=== PATIENT | male | born 1935 | race Caucasian/White ===

== ENCOUNTER 2018-06-12 09:08 | Day surgery (SDC) | payer MEDICARE, OTHER, SELFPAY ==
[2018-06-12] MEDS: PROPARACAINE 0.5% OPHTH SOL 2 DROPS EYE-OP (10:15)
[2018-06-12 10:20] VITALS: BP 129/54; PULSE 59; RESP 16; TEMP 36.4; O2SAT 99
[2018-06-12] MEDS: CATARACT EYE COMPOUND (10 DROPS/SYRINGE) 3 DROPS EYE-OP (10:34)
--- NOTE | 2018-06-12 11:25 | PM.PREOP ---
Pre-operative Note Interval Note Changes: No
--- NOTE | 2018-06-12 11:26 | P.OP_ITS ---
Operative Date/Time/Diagnoses Pre-op diagnosis: Cataract Right eye Post-op diagnosis: same Procedure & Clinicians Procedure: Cataract Surgery Same procedure as scheduled: Yes Surgeon: Sae Workman Anesthesia Type: MAC +/- and Sedation Operative Notes Procedure in detail: Patient brought to the operating suite. Tetracaine drops placed in the right eye. Patient was prepped and draped in sterile manner. Wire lid speculum was placed in the eye. Betadine drops were placed on the eye. This was irrigated. Lidocaine jelly was placed on the eye. A paracentesis port was created with a side-port blade. 0.1 mL 1% preservative free lidocaine was injected into the anterior chamber. The anterior chamber was deepened with viscoelastic. 2.6 mm keratome was used to create a temporal clear corneal incision. Cystotome and Utrata forceps were used to create continuous tear capsulorrhexis. Balanced salt solution was used to hydro dissect the nucleus. The phacoemulsification handpiece was inserted and the nucleus was removed using the stop and chop technique. The irrigation aspiration handpiece was inserted and the remaining cortex was removed. Anterior chamber was deepened with viscoelastic. An Stoddard ZCB00 intraocular lens with a power of 21.0 was injected into the capsular bag. Irrigation aspiration handpiece was inserted and the remaining viscoelastic was removed. Incision was hydrated with balanced salt solution and found to be leak free with pressure with Weck- Estefani sponges. 0.1 mL Vigamox injected anterior chamber. 0.3 mL Kenalog 10 mg was injected subconjunctivally. Lid speculum was removed. The patient left the operating room in excellent condition. Complications: none Condition: stable Disposition: same day surgery
--- NOTE | 2018-06-12 11:26 | P.OP.PRE_ITS ---
Pre-operative Note Interval Note Changes: No
[2018-06-12] MEDS: CHONDROIDTIN/SOD HYALURONATE 1.05 ML SYRINGE INTRAOCULA (11:37)
[2018-06-12] MEDS: MOXIFLOXACIN OPHTH DROPS 3 ML BOTTLE 2 DROPS INJ (11:37)
[2018-06-12] MEDS: TETRACAINE 0.5% OPHTH DROPS 15 ML 2 DROPS EYE-RIGHT (11:37)
[2018-06-12] MEDS: PHENYLEPHRINE/LIDOCAINE VIAL (OR) 0.2 ML EYE-OP (11:37)
[2018-06-12] MEDS: LIDOCAINE JELLY 2% 5 ML 1 APPLIC TOP (11:37)
[2018-06-12] MEDS: BALANCED SALT IRRIG SOLN NO.2 500 ML, EPINEPHrine 1 MG IRR (11:38)
[2018-06-12] MEDS: TRIAMCINOLONE 50 MG/5 ML VIAL INJ (11:38)
[2018-06-12 11:59] VITALS: BP 140/58; PULSE 54; RESP 16; TEMP 36.5; O2SAT 98
== END 2018-06-12 12:15 | disposition home or self-care (01) ==
LOC: OR 09:10
PROVIDERS: PCP Internal Medicine; Visit Provider Ophthalmology
DX: I51.9 Heart disease, unspecified (principal); I49.9 Cardiac arrhythmia, unspecified
CPT/HCPCS: J0171; J2250; J3010; J3301

== ENCOUNTER → 2019-06-13 15:32 | Outpatient (CLI) | payer MEDICARE, OTHER, SELFPAY ==
--- NOTE | 2019-06-13 | DI.CT.S_ITS ---
PROCEDURE: CT HEAD/BRAIN WO CON INDICATIONS: HEAD TRAUMA, FALL ON ANTICOAGULATION TECHNIQUE: Noncontrast 4.5 mm thick angled axial sections acquired from the foramen magnum to the vertex, with coronal and sagittal reformats. For radiation dose reduction, the following was used: automated exposure control, adjustment of mA and/or kV according to patient size. COMPARISON: None. FINDINGS: Image quality: Excellent. CSF spaces: Basal cisterns are patent. No extra-axial fluid collections. The ventricles are symmetric in size and shape. Brain: No intracranial bleeds or masses. There is dilated vascular space or old lacunar infarct in the right basal ganglia and external capsule. Old lacunar infarcts may be present in caudates bilaterally. There is moderate cerebral volume loss for age, with resultant ventricular and sulcal prominence. There are periventricular and deep white matter chronic small vessel ischemic changes. There is intracranial internal carotid artery atherosclerosis. Skull and face: Calvarium and visualized facial bones appear intact, without suspicious lesions. Sinuses: Visualized sinuses and mastoids are clear. IMPRESSION: 1. No acute intracranial abnormalities. No intracranial bleed. 2. Cerebral volume loss and chronic microvascular ischemic changes. Dictated by: Chandu De La Torre M.D. on 06/13/2019 at 16:07 Approved by: Chandu De La Torre M.D. on 06/13/2019 at 16:10
== END ==
PROVIDERS: PCP Internal Medicine; Visit Provider Internal Medicine
DX: S09.90XA Unspecified injury of head, initial encounter (principal); Z79.01 Long term (current) use of anticoagulants; W19.XXXA Unspecified fall, initial encounter
CPT/HCPCS: 70450

== ENCOUNTER → 2019-06-24 13:11 | Outpatient (CLI) | payer MEDICARE, OTHER, SELFPAY | PROVIDERS: PCP Internal Medicine; Visit Provider Family Medicine | DX: S81.811A Laceration without foreign body, right lower leg, initial encounter (principal); S81.812A Laceration without foreign body, left lower leg, initial encounter; I73.9 Peripheral vascular disease, unspecified; L90.9 Atrophic disorder of skin, unspecified | CPT/HCPCS: 97597; 97598 ==

== ENCOUNTER → 2019-06-27 10:58 | Outpatient (CLI) | payer MEDICARE, OTHER, SELFPAY | PROVIDERS: PCP Internal Medicine; Visit Provider Family Medicine | DX: S81.001A Unspecified open wound, right knee, initial encounter (principal); S81.801A Unspecified open wound, right lower leg, initial encounter; S81.002A Unspecified open wound, left knee, initial encounter; Z79.01 Long term (current) use of anticoagulants | CPT/HCPCS: 11042; 11043; 87070; 87205; 99212; 99214 ==

== ENCOUNTER → 2019-07-01 13:37 | Outpatient (CLI) | payer MEDICARE, OTHER, SELFPAY | PROVIDERS: PCP Internal Medicine; Visit Provider Family Medicine | DX: S81.001A Unspecified open wound, right knee, initial encounter (principal); S81.801A Unspecified open wound, right lower leg, initial encounter; S81.002A Unspecified open wound, left knee, initial encounter; Z79.01 Long term (current) use of anticoagulants | CPT/HCPCS: 11042; 97597 ==

== ENCOUNTER → 2019-07-03 08:30 | Outpatient (CLI) | payer MEDICARE, OTHER, SELFPAY | PROVIDERS: PCP Internal Medicine; Visit Provider Family Medicine | DX: S81.011A Laceration without foreign body, right knee, initial encounter (principal); S81.002D Unspecified open wound, left knee, subsequent encounter; S81.811D Laceration without foreign body, right lower leg, subsequent encounter | CPT/HCPCS: 97605 ==

== ENCOUNTER → 2019-07-08 13:15 | Outpatient (CLI) | payer MEDICARE, OTHER, SELFPAY | PROVIDERS: PCP Internal Medicine; Visit Provider Podiatrist Primary Podiatric Medicine | DX: S81.011A Laceration without foreign body, right knee, initial encounter (principal); S81.811A Laceration without foreign body, right lower leg, initial encounter; S81.012D Laceration without foreign body, left knee, subsequent encounter; Z79.01 Long term (current) use of anticoagulants | CPT/HCPCS: 11042; 97597; 97605 ==

== ENCOUNTER → 2019-07-15 14:46 | Outpatient (CLI) | payer MEDICARE, OTHER, SELFPAY | PROVIDERS: PCP Internal Medicine; Visit Provider Podiatrist Primary Podiatric Medicine | DX: S81.001A Unspecified open wound, right knee, initial encounter (principal); S81.801A Unspecified open wound, right lower leg, initial encounter; Z79.01 Long term (current) use of anticoagulants | CPT/HCPCS: 11043; 97597 ==

== ENCOUNTER → 2019-07-22 13:07 | Outpatient (CLI) | payer MEDICARE, OTHER, SELFPAY | PROVIDERS: PCP Internal Medicine; Visit Provider Podiatrist Primary Podiatric Medicine | DX: S81.811D Laceration without foreign body, right lower leg, subsequent encounter (principal); S81.011D Laceration without foreign body, right knee, subsequent encounter; R60.0 Localized edema; Z79.01 Long term (current) use of anticoagulants | CPT/HCPCS: 99214 ==

== ENCOUNTER → 2019-07-29 12:58 | Outpatient (CLI) | payer MEDICARE, OTHER, SELFPAY | PROVIDERS: PCP Internal Medicine; Visit Provider Podiatrist Primary Podiatric Medicine | DX: S81.001A Unspecified open wound, right knee, initial encounter (principal); S81.811A Laceration without foreign body, right lower leg, initial encounter; S81.011A Laceration without foreign body, right knee, initial encounter; Z79.01 Long term (current) use of anticoagulants | CPT/HCPCS: 15271; 97597; Q4196 ==

== ENCOUNTER → 2019-08-05 13:30 | Outpatient (CLI) | payer MEDICARE, OTHER, SELFPAY | PROVIDERS: PCP Internal Medicine; Visit Provider Podiatrist Primary Podiatric Medicine | DX: S81.001D Unspecified open wound, right knee, subsequent encounter (principal); S81.801D Unspecified open wound, right lower leg, subsequent encounter; S81.002D Unspecified open wound, left knee, subsequent encounter; Z79.01 Long term (current) use of anticoagulants | CPT/HCPCS: 15271; Q4196 ==

== ENCOUNTER → 2019-08-12 13:55 | Outpatient (CLI) | payer MEDICARE, OTHER, SELFPAY | PROVIDERS: PCP Internal Medicine; Visit Provider Podiatrist Primary Podiatric Medicine | DX: S81.001D Unspecified open wound, right knee, subsequent encounter (principal); S81.801D Unspecified open wound, right lower leg, subsequent encounter; S81.002D Unspecified open wound, left knee, subsequent encounter; Z79.01 Long term (current) use of anticoagulants | CPT/HCPCS: 15271; 17250; Q4196 ==

== ENCOUNTER → 2019-08-15 14:53 | Outpatient (CLI) | payer MEDICARE, OTHER, SELFPAY ==
--- NOTE | 2019-08-16 15:10 | PM.PFT.1 ---
Pulmonary Function Test Referral & Results Date Patient Seen: 08/15/19 Requesting provider: Danie Talamantes Results: The spirometry demonstrates an FVC of 1.28 L which is 35% of predicted. The FEV1 was measured at 0.92 L which is 36% of predicted. The FEV1/FVC ratio was 72 which is 101% of predicted. Following the administration of bronchodilator there was a 60% improvement in FEV1 and a 63% improvement in FEF 25-75%. Lung volumes show an SVC of 1.26 L which is 30% of predicted. The diffusing capacity was measured at 9.73 which is 32% of predicted. No hemoglobin value was provided, so no correction for potential anemia could be made, if appropriate. The maximum voluntary ventilation was reduced Interpretation: This study demonstrates severe obstructive lung disease with an FEV1 of less than 1 L. There is evidence of benefit following bronchodilator administration based on 16% improvement in FEV1 and a 63% improvement in FEF 25-75% with suggest more improvement in small airway flow that elsewhere There is also severe restrictive lung disease based on severe reduction in SVC There is also a very significant reduction in diffusing capacity suggesting significant disease at the capillary alveolar level, to the point where patients possibly hypoxic at times on room air Compared to PFTs performed in June 2016, current study shows significant decline in FEV1 as well as lung volumes. Diffusing capacity is however centrally unchanged Clinical correlation suggested
== END ==
PROVIDERS: Family Provider Internal Medicine; PCP Internal Medicine; Visit Provider Internal Medicine Critical Care Medicine
DX: I27.20 Pulmonary hypertension, unspecified (principal); J96.11 Chronic respiratory failure with hypoxia
CPT/HCPCS: 94060; 94726; 94729

== ENCOUNTER → 2019-08-26 12:57 | Outpatient (CLI) | payer MEDICARE, OTHER, SELFPAY | PROVIDERS: Family Provider Internal Medicine; PCP Internal Medicine; Visit Provider Podiatrist Primary Podiatric Medicine | DX: S81.001A Unspecified open wound, right knee, initial encounter (principal); Z79.01 Long term (current) use of anticoagulants | CPT/HCPCS: 15271; Q4196 ==

== ENCOUNTER → 2019-09-02 12:55 | Outpatient (CLI) | payer MEDICARE, OTHER, SELFPAY | PROVIDERS: Family Provider Internal Medicine; PCP Internal Medicine; Visit Provider Podiatrist Primary Podiatric Medicine | DX: S81.001D Unspecified open wound, right knee, subsequent encounter (principal); Z79.01 Long term (current) use of anticoagulants | CPT/HCPCS: 15271; 99213; Q4101 ==

== ENCOUNTER 2019-09-06 05:26 | Inpatient (IN) | payer MEDICARE, OTHER, SELFPAY ==
[2019-09-06] VITALS (21 sets, daily range): BP systolic 106–138; BP diastolic 35–91; PULSE 56–78; RESP 12–28; TEMP 36.1–37; O2SAT 93–100; BMI 32.3
--- NOTE | 2019-09-06 05:35 | ED_ITS ---
HPI - SOB/Dyspnea General Chief Complaint: Upper Respiratory Symptoms Stated Complaint: struggling to breath/weak/doesn't feel well Time Seen by Provider: 09/06/19 05:27 Source: patient and family Mode of arrival: Wheelchair Limitations: no limitations History of Present Illness HPI Narrative: 84-year-old male nonsmoker with AFib on Coumadin, and chronic lung problems on home oxygen presents with his for evaluation of increasing shortness of breath over the past few days. He denies any fever or chills nor any chest pain. He is not dizzy, nauseated or diaphoretic. He states he becomes more short of breath with exertion or lying flat. He admits to swelling in his lower extremities. He states he has been taking his medications as directed and denies any dietary indiscretions. He denies any productive cough. He has been seen by pulmonology and was placed on home oxygen 2 weeks ago but encouraged to see cardiology. Patient had a pulmonary function test a few weeks ago which demonstrated severe obstructive and restrictive lung disease, even worse than when last measured a few years ago. MD Complaint: shortness of breath Onset (ago): day(s) Context: occurred during exertion Severity: moderate Consistency/Duration: intermittent Relieving factors: oxygen and rest Exacerbating factors: lying flat and exertion Related Data Home Medications Medication Instructions Recorded Confirmed BETAMETH/CLOTRIMAZOLE 1 cre TOPICAL BID #0 06/21/12 (Clotrimazole-Betamethasone Crm) Coenzyme Q10 (#CO ENZYME Q-10) 100 mg PO QDAY #0 06/21/12 Vitamin B-12 100 mcg PO QDAY #0 06/21/12 [CPAP] HS #0 06/21/12 diphenhydramine-acetaminophen 1 tab PO HSP #0 06/21/12 [Tylenol PM Extra Strength] allopurinol 300 mg PO QDAY #0 11/23/12 Glucosamine Sulfate (GLUCOSAMINE-) 750 mg PO QDAY #0 11/26/12 furosemide 50 mg PO QDAY 06/12/18 Previous Rx's Medication Instructions Recorded allopurinol 300 mg PO QDAY #90 06/21/12 lorazepam 1 mg PO HS 30 Days #0 01/21/13 simvastatin 20 mg PO QPM #30 03/11/13 warfarin [Coumadin] 2.5 mg PO QDAY #100 03/29/13 quinapril [Accupril] 40 mg PO QDAY #90 04/18/13 Allergies Allergy/AdvReac Type Severity Reaction Status Date / Time No Known Drug Allergies Allergy Verified 06/12/18 10:12 Review of Systems Constitutional Constitutional: Denies chills, Reports fatigue, Denies fever(s), Denies frequent falls, Denies lethargy and Denies weakness Eyes Eyes: Denies change in vision, Denies eye discharge, Denies irritation and Denies loss of vision ENT Ears, Nose, Mouth, and Throat: Denies change in voice, Denies dizziness, Denies neck pain, Denies sore throat and Denies throat swelling Cardiovascular Cardiovascular: Denies chest pain, Denies irregular heart rhythm, Denies ligh theadedness, Denies palpitations, Reports dyspnea, Reports dyspnea on exertion and Denies orthopnea Respiratory Respiratory: Denies cough, Reports dyspnea, Reports dyspnea on exertion and Denies wheezing Gastrointestinal Gastrointestinal: Denies abdominal pain, Denies change in bowel habits, Denies diarrhea, Denies nausea and Denies vomiting Genitourinary Genitourinary: Denies hematuria, Denies flank pain, Denies urinary incontinence and Denies urinary urgency Musculoskeletal Musculoskeletal: Denies back pain, Denies muscle weakness, Denies neck pain, Denies numbness and Denies tingling Integumentary/Breasts Skin/Breast: Denies pruritus, Denies erythema, Denies rash and Denies wounds Neurologic Neurologic: Denies behavioral changes, Denies confusion, Denies dizziness, Denies frequent falls, Denies loss of vision, Denies numbness, Denies tingling and Denies weakness Psychiatric Psychiatric: Denies anxiety, Denies behavioral changes, Denies confusion, Denies depression, Denies homicidal ideation and Denies suicidal ideation Endocrine Endocrine: Reports fatigue, Denies flushing and Denies palpitations Hematologic/Lymphatic Hematologic/Lymphatic: Denies easy bruising Allergic/Immunologic Allergic/Immunologic: Denies urticaria, Denies throat swelling and Denies wheez ing Patient History Social History Smoking Status: Never smoker Exam Narrative Exam Narrative: GENERAL: [84] year old patient appears stated age. Obviously feeling unwell, requires significant assistance getting from wheelchair to cart, increased work of breathing HEAD: Atraumatic. Normocephalic. EYES: Pale conjunctiva Pupils equal round and reactive. Extraocular motions intact. No scleral icterus. No injection or drainage. ENT: Nose without bleeding, purulent drainage. Throat without erythema, tonsillar hypertrophy or exudate. Airway patent. NECK: Trachea midline. Non tender CARDIOVASCULAR: Irregular rate and rhythm without murmurs, gallops, or rubs. RESPIRATORY: Decreased breath sounds bilaterally with prolonged expiratory phase, crackles in bilateral bases. GASTROINTESTINAL: Abdomen soft, non-tender, nondistended. RECTAL: heme + EXTREMITIES: 2+ pitting edema B/L LE BACK: Nontender without deformity or crepitance. No flank tenderness. NEURO: AOx3. SKIN: No rash or erythema of visible areas Initial Vital Signs Initial Vital Signs: Vital Signs Temperature 96.9 F L 09/06/19 05:35 Pulse Rate 67 09/06/19 05:35 Respiratory Rate 28 H 09/06/19 05:35 Blood Pressure 114/53 L 09/06/19 05:35 Pulse Oximetry 98 09/06/19 05:35 Course Orders Ordered: ED Orders 09/06/19 05:35 Lactate (Lactic Acid) Stat EKG-12 Lead Stat 09/06/19 05:36 XR chest 1V Stat 09/06/19 05:45 Prothrombin Time INR Stat 09/06/19 05:48 B Type Natriuretic Peptide Stat Basic Metabolic Panel Stat Complete Blood Count AUTO DIFF Stat D Dimer Stat Magnesium Stat Procalcitonin Stat Troponin & CK Cardiac Panel Stat 09/06/19 06:12 Packed Cells Stat Type and Screen Stat 09/06/19 06:33 CT kidney ureter bladder (KUB) Stat US renal complete Stat Discontinued Medications Albuterol/Ipratropium (Duoneb) 3 ml INH NOW ONE Stop: 09/06/19 05:55 Last Admin: 09/06/19 06:02 Dose: 3 ml Documented by: JOSH Furosemide (Lasix) 40 mg IV NOW ONE Stop: 09/06/19 05:36 Last Admin: 09/06/19 05:49 Dose: 40 mg Documented by: JOSH Methylprednisolone (Solu-Medrol 125 Mg Vial) 125 mg IV NOW ONE Stop: 09/06/19 05:55 Last Admin: 09/06/19 06:02 Dose: 125 mg Documented by: JOSH Phytonadione (Mephyton) 5 mg PO NOW ONE Stop: 09/06/19 06:40 Vital Signs Vital signs: Vital Signs - 8 hr 09/06/19 05:35 09/06/19 06:07 09/06/19 06:13 Temperature 96.9 F L Pulse Rate 67 56 L 64 Respiratory Rate 28 H 25 H 18 Blood Pressure 114/53 L Blood Pressure [Left Arm] 106/35 L Pulse Oximetry 98 98 98 09/06/19 07:01 Temperature Pulse Rate 63 Respiratory Rate 12 Blood Pressure Blood Pressure [Left Arm] 125/91 H Pulse Oximetry 99 MDM - SOB/Dyspnea Lab Data Result diagrams: 09/06/19 05:48 09/06/19 05:48 Labs: Lab Results 09/06/19 09/06/19 09/06/19 Range/Units 05:35 05:45 05:48 WBC 7.4 (4.5-11.0) X10^3/uL RBC 1.93 L (4.5-5.9) X10^6/uL Hgb 6.9 L* (13.5-17.5) g/dL Hct 20.6 L* (41-53) % MCV 106.8 H (80-100) fL MCH 36.1 H (26-34) PG MCHC 33.7 (30-36) % RDW 17.3 H (11.6-14.8) % Plt Count 124 L (150-400) X10^3/uL Neut % (Auto) 85.5 H (50-75) % Lymph % (Auto) 7.3 L (25-40) % [place] % (Auto) 6.5 (3-14) % Eos % (Auto) 0.4 L (2-4) % Baso % (Auto) 0.3 (0-2) % Neut # (Auto) 6300 (2795-2566) /uL Lymph # (Auto) 500 L (4119-8301) /uL [place] # (Auto) 500 (0-900) /uL Eos # (Auto) 0 (0-450) /uL Baso # (Auto) 0 (0-100) /uL PT 101.1 H (10.1-12.7) SECONDS INR 8.3 H* (0.9-1.3) D-Dimer (<230) ng/mL Sodium (137-145) mmol/L Potassium (3.4-5.1) mmol/L Chloride (98-107) mmol/L Carbon Dioxide (22-32) mmol/L BUN (9-20) mg/dL Creatinine (0.66-1.25) mg/dL Estimated GFR (>60) mL/min BUN/Creatinine Ratio (6-22) Glucose (80-110) mg/dL Lactate 1.1 (0.7-2.1) mmol/L Calcium (8.4-10.2) mg/dL Magnesium (1.6-2.3) mg/dL Total Creatine Kinase (55-170) U/L CK-MB (CK-2) CK-MB (CK-2) Rel Index Troponin I (0.01-0.034) ng/mL B-Natriuretic Peptide 462 H (<100) Procalcitonin (<0.5) ng/mL Blood Type Antibody Screen Crossmatch 09/06/19 09/06/19 09/06/19 Range/Units 05:48 05:48 05:48 WBC (4.5-11.0) X10^3/uL RBC (4.5-5.9) X10^6/uL Hgb (13.5-17.5) g/dL Hct (41-53) % MCV (80-100) fL MCH (26-34) PG MCHC (30-36) % RDW (11.6-14.8) % Plt Count (150-400) X10^3/uL Neut % (Auto) (50-75) % Lymph % (Auto) (25-40) % [place] % (Auto) (3-14) % Eos % (Auto) (2-4) % Baso % (Auto) (0-2) % Neut # (Auto) (4420-9774) /uL Lymph # (Auto) (4530-5933) /uL [place] # (Auto) (0-900) /uL Eos # (Auto) (0-450) /uL Baso # (Auto) (0-100) /uL PT (10.1-12.7) SECONDS INR (0.9-1.3) D-Dimer 425 H (<230) ng/mL Sodium 133 L (137-145) mmol/L Potassium 5.6 H (3.4-5.1) mmol/L Chloride 94 L (98-107) mmol/L Carbon Dioxide 33 H (22-32) mmol/L BUN 77 H (9-20) mg/dL Creatinine 2.60 H (0.66-1.25) mg/dL Estimated GFR 23.6 L (>60) mL/min BUN/Creatinine Ratio 29.6 H (6-22) Glucose 112 H (80-110) mg/dL Lactate (0.7-2.1) mmol/L Calcium 9.2 (8.4-10.2) mg/dL Magnesium 2.2 (1.6-2.3) mg/dL Total Creatine Kinase 32 L (55-170) U/L CK-MB (CK-2) TNP CK-MB (CK-2) Rel Index TNP Troponin I 0.028 (0.01-0.034) ng/mL B-Natriuretic Peptide (<100) Procalcitonin 0.11 (<0.5) ng/mL Blood Type Antibody Screen Crossmatch 09/06/19 Range/Units 06:12 WBC (4.5-11.0) X10^3/uL RBC (4.5-5.9) X10^6/uL Hgb (13.5-17.5) g/dL Hct (41-53) % MCV (80-100) fL MCH (26-34) PG MCHC (30-36) % RDW (11.6-14.8) % Plt Count (150-400) X10^3/uL Neut % (Auto) (50-75) % Lymph % (Auto) (25-40) % [place] % (Auto) (3-14) % Eos % (Auto) (2-4) % Baso % (Auto) (0-2) % Neut # (Auto) (1577-3337) /uL Lymph # (Auto) (6031-9733) /uL [place] # (Auto) (0-900) /uL Eos # (Auto) (0-450) /uL Baso # (Auto) (0-100) /uL PT (10.1-12.7) SECONDS INR (0.9-1.3) D-Dimer (<230) ng/mL Sodium (137-145) mmol/L Potassium (3.4-5.1) mmol/L Chloride (98-107) mmol/L Carbon Dioxide (22-32) mmol/L BUN (9-20) mg/dL Creatinine (0.66-1.25) mg/dL Estimated GFR (>60) mL/min BUN/Creatinine Ratio (6-22) Glucose (80-110) mg/dL Lactate (0.7-2.1) mmol/L Calcium (8.4-10.2) mg/dL Magnesium (1.6-2.3) mg/dL Total Creatine Kinase (55-170) U/L CK-MB (CK-2) CK-MB (CK-2) Rel Index Troponin I (0.01-0.034) ng/mL B-Natriuretic Peptide (<100) Procalcitonin (<0.5) ng/mL Blood Type O Positive Antibody Screen Negative Crossmatch See Detail MDM Narrative Medical decision making narrative: 84M with chronic lung disease presents SOB and weak. He is anemic and supratherapeutic on coumadin. He does not have significant bleeding and is hemodynamically stable therefore a candidate for slow reversal or withholding. Given his active heart failure he is not appropriate for FFP. He does have a bump in creatinine, presumably from prerenal causes. Renal US shows no obstructive uropathy, CT KUB shows no obvious hematoma or uropathy. Would benefit from contrast when renal function improves. Packed cells ordered Discharge Plan Departure Patient Disposition: Admitted As Inpatient Clinical Impression: Acute kidney injury Anemia Qualifiers: Anemia type: unspecified type Qualified Code(s): D64.9 - Anemia, unspecified Acute CHF Qualifiers: Heart failure type: unspecified Qualified Code(s): I50.9 - Heart failure, unspecified
--- NOTE | 2019-09-06 05:36 | DI.RAD.S_ITS ---
PROCEDURE: XR CHEST 1V INDICATIONS: SOB TECHNIQUE: One view of the chest was acquired. COMPARISON: [facility], , CHEST 2 VIEW, 12/24/2014, 16:07. FINDINGS: Surgical changes and devices: None. Lungs and pleura: Lungs are abnormal with a generalized alveolar edema pattern and more dense consolidation at the lung bases bilaterally, greater at the retrocardiac left lung base than on the right.. No pleural effusions or pneumothorax. Mediastinum: Mediastinal contours appear normal. Heart size is mildly enlarged. Bones and chest wall: No suspicious bony lesions. Overlying soft tissues appear unremarkable. IMPRESSION: Mild cardiomegaly, mild CHF pattern, possible superimposed bibasilar pneumonia (left greater than right). Dictated by: Stevie Goldstein M.D. on 09/06/2019 at 8:13 Approved by: Stevie Goldstein M.D. on 09/06/2019 at 8:13
[2019-09-06] MEDS: FUROSEMIDE 40 MG/4 ML VIAL IV (05:49)
[2019-09-06] MEDS: ALBUTEROL/IPRATROPIUM 3 ML AMPUL INH (06:02)
[2019-09-06] MEDS: methylPREDNISolone 125 MG/2 ML VIAL IV (06:02)
[2019-09-06 06:03] LABS: Add Manual Diff / Slide Review NO; Basophils Absolute Auto 0 /uL (0-100); Basophils Percent Auto 0.3 % (0-2); Eosinophils Absolute Auto 0 /uL (0-450); Eosinophils Percent Auto 0.4 % (2-4); Lymphocytes Absolute Auto 500 /uL (1100-4500); Lymphocytes Percent Auto 7.3 % (25-40); Mean Corpuscular HGB Conc 33.7 % (30-36); Mean Corpuscular Hemoglobin 36.1 PG (26-34); Mean Corpuscular Volume 106.8 fL (80-100); Monocytes Absolute Auto 500 /uL (0-900); Monocytes Percent Auto 6.5 % (3-14); Neutrophils Absolute Auto 6300 /uL (1500-7000); Neutrophils Percent Auto 85.5 % (50-75); Platelet Count 124 X10^3/uL (150-400); Red Blood Cell Count 1.93 X10^6/uL (4.5-5.9); Red Cell Distribution Width 17.3 % (11.6-14.8); White Blood Cell Count 7.4 X10^3/uL (4.5-11.0)
[2019-09-06 06:05] LABS: D Dimer 425 ng/mL (<230)
[2019-09-06 06:07] LABS: BUN Creatinine Ratio 29.6 (6-22); Blood Urea Nitrogen 77 mg/dL (9-20); Calcium 9.2 mg/dL (8.4-10.2); Carbon Dioxide 33 mmol/L (22-32); Chloride 94 mmol/L (98-107); Creatine Kinase 32 U/L (55-170); Estimated Glomerular Filt Rate 23.6 mL/min (>60); Glucose 112 mg/dL (80-110); HEMOLYSIS < 15 (0-50); Magnesium 2.2 mg/dL (1.6-2.3); Sodium 133 mmol/L (137-145)
[2019-09-06 06:08] LABS: Hematocrit 20.6 % (41-53); Hemoglobin 6.9 g/dL (13.5-17.5)
[2019-09-06 06:18] LABS: Troponin I 0.028 ng/mL (0.01-0.034)
[2019-09-06 06:18] LABS: Lactate (Lactic Acid) 1.1 mmol/L (0.7-2.1)
[2019-09-06 06:24] LABS: Potassium 5.6 mmol/L (3.4-5.1)
[2019-09-06 06:26] LABS: B Type Natriuretic Peptide 462 (<100)
--- NOTE | 2019-09-06 06:30 | PC.NURSE ---
I assisted DR Akins with rectal exam.
[2019-09-06 06:33] LABS: Prothrombin Time 101.1 SECONDS (10.1-12.7)
--- NOTE | 2019-09-06 06:33 | DI.US.S_ITS ---
PROCEDURE: US RENAL COMPLETE INDICATIONS: SUDDEN ONSET RENAL FAILURE TECHNIQUE: Real-time scanning was performed of the kidneys and bladder, with image documentation. COMPARISON: None. FINDINGS: Kidneys: Kidneys are normal in size. Right kidney measures 11.3 cm long; left kidney measures 10.4 cm long. Right renal cortical thickness is 1.5 cm; left renal cortical thickness is 1.5 cm. Renal cortical echotexture is normal. No hydronephrosis or nephrolithiasis. No suspicious solid mass lesions. Bladder: The bladder is not distended, limited quality of visualization, no bladder abnormality is suspected. Miscellaneous: No free pelvic fluid. IMPRESSION: Source of sudden onset renal insufficiency is not found. Dictated by: Stevie Goldstein M.D. on 09/06/2019 at 8:56 Approved by: Stevie Goldstein M.D. on 09/06/2019 at 8:57
--- NOTE | 2019-09-06 06:33 | DI.CT.S_ITS ---
PROCEDURE: CT KIDNEY URETER BLADDER (KUB) INDICATIONS: severe renal failure, anemia, right lower quadrant pain TECHNIQUE: Noncontrast 5 mm thick sections acquired from the diaphragms to the symphysis. 5 mm thick coronal and sagittal reformats were then performed. For radiation dose reduction, the following was used: automated exposure control, adjustment of mA and/or kV according to patient size. COMPARISON: [facility], , RENAL COMPLETE, 09/06/2019, 7:05. FINDINGS: Image quality: Excellent. Lung bases: Lung bases are abnormal as is the left pleural space and the pleural surfaces bilaterally. Dense consolidation is present the lungs posteriorly, inferiorly, to the degree that bilateral pneumonia may be present. Additionally, within the left lower pleural space there is a heterogeneous mixed density masslike structure is only partially visualized, and measures up to multiple centimeters and maximal axial dimension (poorly visualized but estimated at approximately 10 cm transverse and 4.4 cm AP). Additionally there are bilateral pleural calcifications with plaque-like morphology, consistent with prior asbestos related pleural disease. This combination may represent evidence of a mesothelioma within the left lower pleural space as cause of the appearance in that area. Heart size is normal. Urinary system: Both kidneys are normal in size. No kidney stones. No hydronephrosis or perinephric fat stranding. Both ureters appear non-dilated throughout their expected courses. Bladder wall thickness is normal; no calcified bladder stones. Other solid organs: Liver is normal in size. Gallbladder appears normal. Pancreas is normal in contours but appears to contain a 1.3 cm cystic structure near the midline. A this could be more accurately assessed by contrast-enhanced scanning is obtained utilizing MR technique. Spleen is normal in size. No adrenal nodules. Peritoneum and bowel: Unenhanced bowel loops demonstrate normal wall thickness and caliber. No free fluid or air. Nodes and vessels: No retroperitoneal or mesenteric adenopathy by size criteria. Aorta and inferior vena cava are normal in caliber. Abdominal wall: No ventral hernias. Pelvis: No free pelvic fluid. No inguinal hernias or adenopathy. An abnormality of the right lower quadrant is not known but quality of visualization is quite limited by absence of oral and intravenous contrast Bones: No suspicious bony lesions. No vertebral body compression fractures. IMPRESSION: The study is somewhat limited by absence of both oral and intravenous contrast in this patient with renal insufficiency. No hydronephrosis or nephrolithiasis is found, the bladder appears normal. Within the pleural spaces bilaterally there is pleural plaquing and calcification consistent with prior asbestos related pleural disease and also there is dense posterior alveolar consolidation potentially representing atelectasis or pneumonia. Finally, within the left posterior low pleural space there appears to be a ovoid mass lesion with mixed heterogeneity in its radiodensity, potentially a manifestation of mesothelioma in the setting of prior asbestos exposure. Contrast-enhanced imaging utilizing MR technique may be warranted. The patient reports right lower quadrant pain, source of pain is not seen. Incidental finding of a 1.3 cm pancreatic parenchyma cyst, partially visualized, just to the left of midline. Dictated by: Stevie Goldstein M.D. on 09/06/2019 at 9:02 Approved by: Stevie Goldstein M.D. on 09/06/2019 at 9:10
[2019-09-06 06:36] LABS: INR 8.3 (0.9-1.3)
[2019-09-06 06:42] LABS: Procalcitonin 0.11 ng/mL (<0.5)
--- NOTE | 2019-09-06 07:57 | P.HP_ITS ---
History of Present Illness History of Present Illness Date Patient Seen: 09/06/19 Time Patient Seen: 07:57 Chief complaint: struggling to breath/weak/doesn't feel well Narrative: This is an 84-year-old male who lives in his own home with his and presents with progressive weakness and shortness of breath over the last 3-4 days. He has not been able to walk on his own, declining to use a wheelchair, walker or cane and instead depending on his to help him walk around in his house. He has noticed dark brown stool and traces of blood on the stools. His INR on presentation is 8.3 with a hemoglobin of 6.9. His kidney function also shows signs of acute worsening with a baseline creatinine of 0.8 now up to 2.5. His renal ultrasound and CT KUB showed no acute cause of renal failure. 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 Most recently he fell at home sustaining a large hematoma on the right knee that has become a chronic wound. He has been following up with the wound care here in this hospital once a week with a wound care visit and dressing change due on Monday, 3 days from now. There has been no vomiting or abdominal pain. He has never had to have a blood transfusion or been treated for severe anemia before. He was just started on oxygen about 2 weeks ago by his shorthand reporter. His primary care is with Dr. Shaheen Timmons in [place] Patient History Medical History (Updated 09/06/19 @ 14:00 by Kelsey Holloway MD) Afib (Acute) PAIGE (acute kidney injury) (Acute) CHF (congestive heart failure) (Acute) CKD (chronic kidney disease) (Acute) COPD (chronic obstructive pulmonary disease) (Acute) Hyperlipidemia (Acute) Hypertension (Acute) Hypoxia (Acute) Pulmonary asbestosis (Acute) Surgical History (Updated 09/06/19 @ 14:11 by Kelsey Holloway MD) History of cataract surgery (Acute) Family & Social History Family History (Updated 09/06/19 @ 13:58 by Kelsey Holloway MD) Mother CVA (cerebral vascular accident) Father PAD (peripheral artery disease) Safety & Behavioral: Feels Safe in Current Yes Environment Tobacco & Substance use: Smoking Status Never smoker alcohol intake frequency 2 Martinis every day Substance Use Type does not use 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 Meds Home Medications and Allergies Home Medications Medication Instructions Recorded Confirmed Type BETAMETH/CLOTRIMAZOLE 1 cre TOPICAL BID #0 06/21/12 History (Clotrimazole-Betamethasone Crm) Coenzyme Q10 (#CO ENZYME Q-10) 100 mg PO QDAY #0 06/21/12 09/06/19 History Vitamin B-12 100 mcg PO QDAY #0 06/21/12 09/06/19 History [CPAP] HS #0 06/21/12 History allopurinol 300 mg PO QPM #0 11/23/12 09/06/19 History Glucosamine Sulfate (GLUCOSAMINE-) 750 mg PO QDAY #0 11/26/12 09/06/19 History warfarin [Coumadin] 2.5 mg PO QDAY #100 03/29/13 09/06/19 Rx quinapril [Accupril] 40 mg PO QDAY #90 04/18/13 09/06/19 Rx furosemide 40 mg PO QAM 06/12/18 09/06/19 History lorazepam 0.5 mg PO HS 09/06/19 09/06/19 History Allergies Allergy/AdvReac Type Severity Reaction Status Date / Time No Known Drug Allergies Allergy Verified 06/12/18 10:12 Review of Systems Review of Systems Narrative: Positive for shortness of breath, peripheral edema, blood in stool, increasing weakness. Negative for fevers, chills, sweats, chest pain, coughing, abdominal pain, nausea, vomiting, rashes, seizures, sore throat, headaches, new allergies, difficulty talking. ROS Unobtainable: All systems reviewed & are unremarkable except as noted in HPI and below Exam Vital Signs (past 8 hours): - 09/06/19 05:35 09/06/19 06:07 09/06/19 06:13 Temperature 96.9 F L Pulse Rate 67 56 L 64 Respiratory Rate 28 H 25 H 18 Blood Pressure 114/53 L Blood Pressure [Left Arm] 106/35 L Pulse Oximetry 98 98 98 09/06/19 07:01 Temperature Pulse Rate 63 Respiratory Rate 12 Blood Pressure Blood Pressure [Left Arm] 125/91 H Pulse Oximetry 99 Oxygen Delivery Method Nasal Cannula Oxygen Flow Rate 2 Narrative Exam Narrative: He is alert and oriented x3. He is very, very weak, unable to roll over on the stretcher or to sit up on his own. Pupils are equally round and reactive to light and accommodation. Extraocular muscles are intact. Sclerae are pink and nonicteric. Throat looks normal. No lymph nodes are felt head, neck, supraclavicular area. There is no thyromegaly. JVD is less than 8 cm. No carotid bruits are heard. Heart is regular rate and rhythm with frequent early beats and no murmur. Lungs have wheezes bilaterally. Abdomen is soft, bowel sounds positive, nontender, no organomegaly. Extremities have 1+ edema left more than right Skin has no rash or jaundice Neuro exam. Cranial nerves 2-12 tested intact. Motor function is 3/5 throughout. There is no tremor. Objective Labs Result Diagrams: 09/06/19 05:48 09/06/19 05:48 Labs: Laboratory Results - last 24 hr 09/06/19 09/06/19 09/06/19 05:35 05:45 05:48 WBC 7.4 RBC 1.93 L Hgb 6.9 L* Hct 20.6 L* MCV 106.8 H MCH 36.1 H MCHC 33.7 RDW 17.3 H Plt Count 124 L Neut % (Auto) 85.5 H Lymph % (Auto) 7.3 L [place] % (Auto) 6.5 Eos % (Auto) 0.4 L Baso % (Auto) 0.3 Neut # (Auto) 6300 Lymph # (Auto) 500 L [place] # (Auto) 500 Eos # (Auto) 0 Baso # (Auto) 0 PT 101.1 H INR 8.3 H* D-Dimer Sodium Potassium Chloride Carbon Dioxide BUN Creatinine Estimated GFR BUN/Creatinine Ratio Glucose Lactate 1.1 Calcium Magnesium Total Creatine Kinase CK-MB (CK-2) CK-MB (CK-2) Rel Index Troponin I B-Natriuretic Peptide 462 H Procalcitonin Blood Type Antibody Screen Crossmatch 09/06/19 09/06/19 09/06/19 05:48 05:48 05:48 WBC RBC Hgb Hct MCV MCH MCHC RDW Plt Count Neut % (Auto) Lymph % (Auto) [place] % (Auto) Eos % (Auto) Baso % (Auto) Neut # (Auto) Lymph # (Auto) [place] # (Auto) Eos # (Auto) Baso # (Auto) PT INR D-Dimer 425 H Sodium 133 L Potassium 5.6 H Chloride 94 L Carbon Dioxide 33 H BUN 77 H Creatinine 2.60 H Estimated GFR 23.6 L BUN/Creatinine Ratio 29.6 H Glucose 112 H Lactate Calcium 9.2 Magnesium 2.2 Total Creatine Kinase 32 L CK-MB (CK-2) TNP CK-MB (CK-2) Rel Index TNP Troponin I 0.028 B-Natriuretic Peptide Procalcitonin 0.11 Blood Type Antibody Screen Crossmatch 09/06/19 06:12 WBC RBC Hgb Hct MCV MCH MCHC RDW Plt Count Neut % (Auto) Lymph % (Auto) [place] % (Auto) Eos % (Auto) Baso % (Auto) Neut # (Auto) Lymph # (Auto) [place] # (Auto) Eos # (Auto) Baso # (Auto) PT INR D-Dimer Sodium Potassium Chloride Carbon Dioxide BUN Creatinine Estimated GFR BUN/Creatinine Ratio Glucose Lactate Calcium Magnesium Total Creatine Kinase CK-MB (CK-2) CK-MB (CK-2) Rel Index Troponin I B-Natriuretic Peptide Procalcitonin Blood Type O Positive Antibody Screen Negative Crossmatch See Detail Assessment & Plan Assessment & Plan narrative: This is an 84-year-old male presenting with acute lower GI bleeding, elevated INR of 8.3 and a hemoglobin of 6.9 related to his chief complaint of shortness of breath/weakness. Anemia - This appears to be a GI bleed process related to the elevated INR - Follow H and H in the ICU and plan surgical consult for endoscopy if there are signs of ongoing bleeding despite the Vitamin K and blood transfusion - Transfuse 2 units PRBC on 09/06 - Begin IV Famotidine GI Bleeding - Reverse elevated INR with Vitamin K and consult Surgery if signs of continued bleeding. Elevated INR - Unclear causes of recent Coumadin toxicity/elevated INR. No recent med changes/additions - Use Vitamin K and consider FFP/Kcentra if needed Hypertension - Continue Quinapril and hold Lasix Atrial Fibrillation - Hold anticoagulation due to GI bleeding COPD - Continue Albuterol/Duoneb Asbestosis/Restrictive Lung Disease - Continue home oxygen NC dosing Acute Kidney Injury - Continue IVF and recheck BMP tomorrow.
[2019-09-06] MEDS: PHYTONADIONE (VIT K1) 5 MG TABLET PO (09:53)
[2019-09-06 11:12] LABS: Bacteria Urine None Seen; RBC Urine None Seen (0-5/HPF); WBC Urine None Seen (0-5/HPF)
[2019-09-06 11:14] LABS: Appearance Urine UA CLEAR; Bilirubin Urine UA NEGATIVE (NEGATIVE); Color Urine UA YELLOW; Glucose Urine UA NEGATIVE (Negative); Ketones Urine UA NEGATIVE (NEGATIVE); Leukocyte Esterase Urine UA NEGATIVE (NEGATIVE); Nitrite Urine UA NEGATIVE (Negative); Occult Blood Urine UA NEGATIVE (Negative); Protein Urine UA NEGATIVE (Negative); Specific Gravity Urine UA <=1.005 (1.000-1.035); Urobilinogen Urine UA 0.2 E.U./dL (0.2)
[2019-09-06 11:33] LABS: Culture Indicated Urine Cult Not Indicated; Urine Comments Microscopic Normal
--- NOTE | 2019-09-06 12:43 | PC.NURSE ---
Addendum entered by Rosa Reaves R.N. 09/06/19 15:29: Completed 2nd unit of PRBC, Pt is tolerating well. Denies SOB at present, pallor to cheeks improved. pt on 2L per home regime. Pt has had one BM this afternoon. giuac +, tarry. Using BSC or bedpan. Urinal and brief in place. Verified with Dr Holloway new h/h for AM labs. Removed Coban from IV start in ER to LFA, 1cm skin tear noted. Fragile skin. Original Note: Admission Rec'd Pt from ER @ 0840. Pt able to stand, and take a few steps to BSC. Guiac + BM/urine mixed. 4L 02 during transfer, reduced to 2L after Pt settled in. Denies pain, reports SOB with activity. Spo2 94 %, coarse, wheezing, diminished. Fatigues easily. will return with med list, as Pt is unsure about all medications, except that he did not take any coumadin 09/05 PM, and INR quite elevated. Updated Pt on lab values, and .
[2019-09-06] MEDS: ALLOPURINOL 300 MG TABLET PO (17:08)
--- NOTE | 2019-09-06 17:33 | PC.NURSE ---
1730- Patient was not able to eat dinner. Patient states his abdomen feels distended and full. Patient states it is hard to get a good breath. Patient has 2 liters 02 to keep saturation 92%. Will monitor.
[2019-09-06 21:29] LABS: Basophils Absolute Auto 0 /uL (0-100); Basophils Percent Auto 0.4 % (0-2); Eosinophils Absolute Auto 0 /uL (0-450); Hematocrit 24.5 % (41-53); Hemoglobin 8.4 g/dL (13.5-17.5); Lymphocytes Absolute Auto 100 /uL (1100-4500); Mean Corpuscular HGB Conc 34.3 % (30-36); Mean Corpuscular Hemoglobin 34.1 PG (26-34); Mean Corpuscular Volume 99.3 fL (80-100); Monocytes Absolute Auto 0 /uL (0-900); Monocytes Percent Auto 1.1 % (3-14); Neutrophils Absolute Auto 2200 /uL (1500-7000); Neutrophils Percent Auto 92.5 % (50-75); Platelet Count 115 X10^3/uL (150-400); Red Blood Cell Count 2.47 X10^6/uL (4.5-5.9); White Blood Cell Count 2.4 X10^3/uL (4.5-11.0)
[2019-09-06 21:35] LABS: BUN Creatinine Ratio 36.7 (6-22); Blood Urea Nitrogen 77 mg/dL (9-20); Calcium 9.4 mg/dL (8.4-10.2); Carbon Dioxide 34 mmol/L (22-32); Chloride 94 mmol/L (98-107); Estimated Glomerular Filt Rate 30.2 mL/min (>60); Glucose 159 mg/dL (80-110); HEMOLYSIS < 15 (0-50); Potassium 5.2 mmol/L (3.4-5.1); Sodium 133 mmol/L (137-145)
[2019-09-06] MEDS: PANTOPRAZOLE 40 MG VIAL IV (21:35)
[2019-09-06 21:59] LABS: Add Manual Diff / Slide Review SLIDE REVIEW
[2019-09-06 22:00] LABS: Anisocytosis 3+; Macrocytosis 2+; Rouleaux 2+
[2019-09-07] VITALS (12 sets, daily range): BP systolic 113–136; BP diastolic 55–66; PULSE 59–67; RESP 18–23; TEMP 36.2–36.8; O2SAT 93–99
[2019-09-07 05:31] LABS: Add Manual Diff / Slide Review NO; Basophils Absolute Auto 0 /uL (0-100); Basophils Percent Auto 0.1 % (0-2); Eosinophils Absolute Auto 0 /uL (0-450); Hemoglobin 8.8 g/dL (13.5-17.5); Lymphocytes Absolute Auto 400 /uL (1100-4500); Lymphocytes Percent Auto 9.2 % (25-40); Mean Corpuscular HGB Conc 33.9 % (30-36); Mean Corpuscular Hemoglobin 34.1 PG (26-34); Mean Corpuscular Volume 100.5 fL (80-100); Monocytes Absolute Auto 100 /uL (0-900); Monocytes Percent Auto 2.7 % (3-14); Neutrophils Absolute Auto 3400 /uL (1500-7000); Platelet Count 122 X10^3/uL (150-400); Red Blood Cell Count 2.59 X10^6/uL (4.5-5.9); Red Cell Distribution Width 21.1 % (11.6-14.8); White Blood Cell Count 3.8 X10^3/uL (4.5-11.0)
[2019-09-07 05:46] LABS: Prothrombin Time 55.8 SECONDS (10.1-12.7)
[2019-09-07 05:48] LABS: Alanine Aminotransferase 16 IU/L (<50); Albumin 3.8 g/dL (3.5-5.0); Albumin Globulin Ratio 0.9 (1.0-2.8); Alkaline Phosphatase 197 U/L (38-126); Aspartate Aminotransferase 29 IU/L (17-59); BUN Creatinine Ratio 33.8 (6-22); Bilirubin Total 0.7 mg/dL (0.2-1.3); Blood Urea Nitrogen 71 mg/dL (9-20); Calcium 9.7 mg/dL (8.4-10.2); Carbon Dioxide 32 mmol/L (22-32); Chloride 96 mmol/L (98-107); Estimated Glomerular Filt Rate 30.2 mL/min (>60); Globulin 4.3 g/dL (1.7-4.1); Glucose 133 mg/dL (80-110); HEMOLYSIS < 15 (0-50); INR 4.7 (0.9-1.3); Magnesium 2.3 mg/dL (1.6-2.3); Potassium 5.1 mmol/L (3.4-5.1); Sodium 136 mmol/L (137-145); Total Protein 8.1 g/dL (6.3-8.2)
[2019-09-07 06:00] LABS: B Type Natriuretic Peptide 1240 (<100)
[2019-09-07 06:08] LABS: Procalcitonin 0.09 ng/mL (<0.5)
[2019-09-07 06:41] LABS: Anisocytosis 3+
[2019-09-07 06:42] LABS: Target Cells 1+
[2019-09-07] MEDS: PHYTONADIONE (VIT K1) 5 MG TABLET PO (10:27)
[2019-09-07] MEDS: PANTOPRAZOLE 40 MG VIAL IV (10:27)
--- NOTE | 2019-09-07 10:53 | P.CONS_ITS ---
History of Present Illness Consult details Date Patient Seen: 09/07/19 Time Patient Seen: 11:09 Chief complaint: struggling to breath/weak/doesn't feel well Narrative: This is a 84-year-old male with atrial fibrillation on warfarin who presents with symptomatic anemia. At home he had worsening shortness of breath, he is baseline oxygen dependent and melena. Admission 09/06 hematocrit 21 platelets 125, INR 8.3, hemodynamically stable. No abdominal pain, hematemesis nausea vomiting bright red blood per rectum prior history of peptic ulcer disease portal hypertension or NSAID use. He received Vitamin K and 2 units of packed red blood cells. He was admitted to the intensive care unit for monitoring, overnight has remained stable with no further blood per rectum. [facility] Medical History Afib (Acute) PAIGE (acute kidney injury) (Acute) CHF (congestive heart failure) (Acute) CKD (chronic kidney disease) (Acute) COPD (chronic obstructive pulmonary disease) (Acute) Hyperlipidemia (Acute) Hypertension (Acute) Hypoxia (Acute) Pulmonary asbestosis (Acute) Surgical History History of cataract surgery (Acute) Family History Mother CVA (cerebral vascular accident) Father PAD (peripheral artery disease) Social History household members: spouse Smoking Status: Never smoker alcohol intake: current Meds Home Medications and Allergies Home Medications Medication Instructions Recorded Confirmed Type BETAMETH/CLOTRIMAZOLE 1 cre TOPICAL BID #0 06/21/12 History (Clotrimazole-Betamethasone Crm) Coenzyme Q10 (#CO ENZYME Q-10) 100 mg PO QDAY #0 06/21/12 09/06/19 History Vitamin B-12 100 mcg PO QDAY #0 06/21/12 09/06/19 History [CPAP] HS #0 06/21/12 History allopurinol 300 mg PO QPM #0 11/23/12 09/06/19 History Glucosamine Sulfate (GLUCOSAMINE-) 750 mg PO QDAY #0 11/26/12 09/06/19 History warfarin [Coumadin] 2.5 mg PO QDAY #100 06/21/13 11/29/19 Rx quinapril [Accupril] 40 mg PO QDAY #90 04/18/13 09/06/19 Rx furosemide 40 mg PO QAM 06/12/18 09/06/19 History lorazepam 0.5 mg PO HS 09/06/19 09/06/19 History Allergies Allergy/AdvReac Type Severity Reaction Status Date / Time No Known Drug Allergies Allergy Verified 06/12/18 10:12 Review of Systems Review of Systems ROS Unobtainable: All systems reviewed & are unremarkable except as noted in HPI and below Exam Vital Signs (past 8 hours): - 09/07/19 05:10 09/07/19 07:00 09/07/19 08:08 Temperature 97.1 F L Pulse Rate 65 Respiratory Rate 18 Blood Pressure 136/66 Pulse Oximetry 93 96 Fraction of Inspired Oxygen 26 Oxygen Delivery Method Venturi Mask Oxygen Flow Rate 3 Narrative Exam Narrative: General-elderly adult male no acute distress, HEENT-moist mucous membranes, no scleral icterus Neck-supple, no lymphadenopathy Chest- non labored respirations, nasal canula 3L Cardiac-regular rate, mild-moderate peripheral edema Abdomen-soft, nontender, non distended Extremities-warm, well perfused Neurological-alert and oriented, no focal deficits Objective Labs Result Diagrams: 09/07/19 04:44 09/07/19 04:44 Labs: Laboratory Results - last 24 hr 09/06/19 09/06/19 09/06/19 06:12 08:45 10:25 WBC RBC Hgb Hct MCV MCH MCHC RDW Plt Count Neut % (Auto) Lymph % (Auto) [place] % (Auto) Eos % (Auto) Baso % (Auto) Neut # (Auto) Lymph # (Auto) [place] # (Auto) Eos # (Auto) Baso # (Auto) Plt Morphology Comment RBC Morphology Anisocytosis Macrocytosis Target Cells Rouleaux PT INR Sodium Potassium Chloride Carbon Dioxide BUN Creatinine Estimated GFR BUN/Creatinine Ratio Glucose Calcium Magnesium Total Bilirubin AST ALT Alkaline Phosphatase B-Natriuretic Peptide Total Protein Albumin Globulin Albumin/Globulin Ratio Procalcitonin Urine Color Yellow Urine Appearance Clear Urine pH 5.0 Ur Specific [place] <=1.005 Urine Protein Negative Urine Glucose (UA) Negative Urine Ketones Negative Urine Occult Blood Negative Urine Nitrate Negative Urine Bilirubin Negative Urine Urobilinogen 0.2 Ur Leukocyte Esterase Negative Urine RBC None seen Urine WBC None seen Urine Bacteria None seen Ur Culture Indicated? Cult not indicated Micro UA Comment Microscopic normal Nasal Screen MRSA (PCR) Negative for mrsa Blood Type O Positive Antibody Screen Negative Crossmatch See Detail 09/06/19 09/06/19 09/07/19 21:19 21:19 04:44 WBC 2.4 L D RBC 2.47 L Hgb 8.4 L Hct 24.5 L MCV 99.3 D MCH 34.1 H MCHC 34.3 RDW 21.0 H Plt Count 115 L Neut % (Auto) 92.5 H Lymph % (Auto) 6.0 L [place] % (Auto) 1.1 L Eos % (Auto) 0.0 L Baso % (Auto) 0.4 Neut # (Auto) 2200 Lymph # (Auto) 100 L [place] # (Auto) 0 Eos # (Auto) 0 Baso # (Auto) 0 Plt Morphology Comment RBC Morphology Not Reportable Anisocytosis 3+ H Macrocytosis 2+ H Target Cells Rouleaux 2+ H PT INR Sodium 133 L Potassium 5.2 H Chloride 94 L Carbon Dioxide 34 H BUN 77 H Creatinine 2.10 H Estimated GFR 30.2 L BUN/Creatinine Ratio 36.7 H Glucose 159 H Calcium 9.4 Magnesium Total Bilirubin AST ALT Alkaline Phosphatase B-Natriuretic Peptide Total Protein Albumin Globulin Albumin/Globulin Ratio Procalcitonin 0.09 Urine Color Urine Appearance Urine pH Ur Specific [place] Urine Protein Urine Glucose (UA) Urine Ketones Urine Occult Blood Urine Nitrate Urine Bilirubin Urine Urobilinogen Ur Leukocyte Esterase Urine RBC Urine WBC Urine Bacteria Ur Culture Indicated? Micro UA Comment Nasal Screen MRSA (PCR) Blood Type Antibody Screen Crossmatch 09/07/19 09/07/19 09/07/19 04:44 04:44 04:44 WBC 3.8 L D RBC 2.59 L Hgb 8.8 L Hct 26.0 L MCV 100.5 H MCH 34.1 H MCHC 33.9 RDW 21.1 H Plt Count 122 L Neut % (Auto) 88.0 H Lymph % (Auto) 9.2 L [place] % (Auto) 2.7 L Eos % (Auto) 0.0 L Baso % (Auto) 0.1 Neut # (Auto) 3400 Lymph # (Auto) 400 L [place] # (Auto) 100 Eos # (Auto) 0 Baso # (Auto) 0 Plt Morphology Comment RBC Morphology See below Anisocytosis 3+ H Macrocytosis Target Cells 1+ H Rouleaux PT 55.8 H D INR 4.7 H* Sodium 136 L Potassium 5.1 Chloride 96 L Carbon Dioxide 32 BUN 71 H Creatinine 2.10 H Estimated GFR 30.2 L BUN/Creatinine Ratio 33.8 H Glucose 133 H Calcium 9.7 Magnesium 2.3 Total Bilirubin 0.7 AST 29 ALT 16 Alkaline Phosphatase 197 H B-Natriuretic Peptide 1240 H Total Protein 8.1 Albumin 3.8 Globulin 4.3 H Albumin/Globulin Ratio 0.9 L Procalcitonin Urine Color Urine Appearance Urine pH Ur Specific [place] Urine Protein Urine Glucose (UA) Urine Ketones Urine Occult Blood Urine Nitrate Urine Bilirubin Urine Urobilinogen Ur Leukocyte Esterase Urine RBC Urine WBC Urine Bacteria Ur Culture Indicated? Micro UA Comment Nasal Screen MRSA (PCR) Blood Type Antibody Screen Crossmatch Assessment & Plan Assessment and plan (1) Anemia: Qualifiers: Anemia type: unspecified type Qualified Code(s): D64.9 - Anemia, unspecified Current visit: Yes Status: Acute Assessment & Plan narrative: This is an 84-year-old male with atrial fibrillation on warfarin with acute on chronic anemia and coagulopathy. On presentation INR 8, hematocrit 21 platelets 125 creatinine 2.6 hemodynamically stable. Symptomatic anemia largely worsening shortness of breath associated with melena. No hematemesis nausea vomiting or abdominal pain. Currently abdomen soft without peritonitis he has received 2 units of packed red blood cells and hematocrit is now 26. With vitamin K therapy INR is now 4.6. His current status is not consistent with active GI bleed. I suspect he had a slow bleed from his gastrointestinal tract secondary to coagulopathy, that has subsequently ceased. With INR of 4.6 elevated creatinine and oxygen dependence the risk of placing him under general anesthesia for upper endoscopy at this time without hard signs of an active GI bleed presents more risks than benefit. Recommendations: Omeprazole 20 mg b.i.d. Transfuse as necessary If hemodynamically instability, hematemesis, decreasing hematocrit despite transfusion then will require esophagoduodenoscopy for diagnostic purpose and/or therapeutic purpose Trend INR and Hct
--- NOTE | 2019-09-07 11:26 | P.PN_ITS ---
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 His CT scan shows an area in the left lung suspicious for mesothelioma. He has a transport driver, Dr. Talamantes in [place] who he can follow that up with. He has been bleeding from the left nostril which also should correct with additional vitamin K today. His INR is still high at 4.7. The hemoglobin is 8.8. This is up from 6.9. The BNP was 1240 and so additional Lasix was given last night. The CT scan suggests mesothelioma. His creatinine is 2.1. He was seen by General surgery today and the recommendation was to continue reversing Coumadin without proceeding to endoscopy unless signs of rebleeding occur. It looks like it would be reasonable to put him on Eliquis instead of Coumadin going forward. This is apparently the 2nd time in the last few months where his INR has gone up without any particular reason. Exam Vital Signs (past 8 hours): - 09/07/19 05:10 09/07/19 07:00 09/07/19 08:08 Temperature 97.1 F L Pulse Rate 65 Respiratory Rate 18 Blood Pressure 136/66 Pulse Oximetry 93 96 Fraction of Inspired Oxygen 26 Oxygen Delivery Method Venturi Mask Oxygen Flow Rate 3 Narrative Exam Narrative: He is alert and oriented x3. He appears quite weak. He is participating in the conversation appropriately. Heart is regular rate and rhythm without murmur. Lungs are clear to auscultation bilaterally. Extremities have no ankle edema. Left nostril is caked with blackish clotted blood. Objective Labs Result Diagrams: 09/07/19 04:44 09/07/19 04:44 Labs: Laboratory Results - last 24 hr 09/06/19 09/06/19 09/06/19 06:12 08:45 10:25 WBC RBC Hgb Hct MCV MCH MCHC RDW Plt Count Neut % (Auto) Lymph % (Auto) [place] % (Auto) Eos % (Auto) Baso % (Auto) Neut # (Auto) Lymph # (Auto) [place] # (Auto) Eos # (Auto) Baso # (Auto) Plt Morphology Comment RBC Morphology Anisocytosis Macrocytosis Target Cells Rouleaux PT INR Sodium Potassium Chloride Carbon Dioxide BUN Creatinine Estimated GFR BUN/Creatinine Ratio Glucose Calcium Magnesium Total Bilirubin AST ALT Alkaline Phosphatase B-Natriuretic Peptide Total Protein Albumin Globulin Albumin/Globulin Ratio Procalcitonin Urine Color Yellow Urine Appearance Clear Urine pH 5.0 Ur Specific [place] <=1.005 Urine Protein Negative Urine Glucose (UA) Negative Urine Ketones Negative Urine Occult Blood Negative Urine Nitrate Negative Urine Bilirubin Negative Urine Urobilinogen 0.2 Ur Leukocyte Esterase Negative Urine RBC None seen Urine WBC None seen Urine Bacteria None seen Ur Culture Indicated? Cult not indicated Micro UA Comment Microscopic normal Nasal Screen MRSA (PCR) Negative for mrsa Blood Type O Positive Antibody Screen Negative Crossmatch See Detail 09/06/19 09/06/19 09/07/19 21:19 21:19 04:44 WBC 2.4 L D RBC 2.47 L Hgb 8.4 L Hct 24.5 L MCV 99.3 D MCH 34.1 H MCHC 34.3 RDW 21.0 H Plt Count 115 L Neut % (Auto) 92.5 H Lymph % (Auto) 6.0 L [place] % (Auto) 1.1 L Eos % (Auto) 0.0 L Baso % (Auto) 0.4 Neut # (Auto) 2200 Lymph # (Auto) 100 L [place] # (Auto) 0 Eos # (Auto) 0 Baso # (Auto) 0 Plt Morphology Comment RBC Morphology Not Reportable Anisocytosis 3+ H Macrocytosis 2+ H Target Cells Rouleaux 2+ H PT INR Sodium 133 L Potassium 5.2 H Chloride 94 L Carbon Dioxide 34 H BUN 77 H Creatinine 2.10 H Estimated GFR 30.2 L BUN/Creatinine Ratio 36.7 H Glucose 159 H Calcium 9.4 Magnesium Total Bilirubin AST ALT Alkaline Phosphatase B-Natriuretic Peptide Total Protein Albumin Globulin Albumin/Globulin Ratio Procalcitonin 0.09 Urine Color Urine Appearance Urine pH Ur Specific [place] Urine Protein Urine Glucose (UA) Urine Ketones Urine Occult Blood Urine Nitrate Urine Bilirubin Urine Urobilinogen Ur Leukocyte Esterase Urine RBC Urine WBC Urine Bacteria Ur Culture Indicated? Micro UA Comment Nasal Screen MRSA (PCR) Blood Type Antibody Screen Crossmatch 09/07/19 09/07/19 09/07/19 04:44 04:44 04:44 WBC 3.8 L D RBC 2.59 L Hgb 8.8 L Hct 26.0 L MCV 100.5 H MCH 34.1 H MCHC 33.9 RDW 21.1 H Plt Count 122 L Neut % (Auto) 88.0 H Lymph % (Auto) 9.2 L [place] % (Auto) 2.7 L Eos % (Auto) 0.0 L Baso % (Auto) 0.1 Neut # (Auto) 3400 Lymph # (Auto) 400 L [place] # (Auto) 100 Eos # (Auto) 0 Baso # (Auto) 0 Plt Morphology Comment RBC Morphology See below Anisocytosis 3+ H Macrocytosis Target Cells 1+ H Rouleaux PT 55.8 H D INR 4.7 H* Sodium 136 L Potassium 5.1 Chloride 96 L Carbon Dioxide 32 BUN 71 H Creatinine 2.10 H Estimated GFR 30.2 L BUN/Creatinine Ratio 33.8 H Glucose 133 H Calcium 9.7 Magnesium 2.3 Total Bilirubin 0.7 AST 29 ALT 16 Alkaline Phosphatase 197 H B-Natriuretic Peptide 1240 H Total Protein 8.1 Albumin 3.8 Globulin 4.3 H Albumin/Globulin Ratio 0.9 L Procalcitonin Urine Color Urine Appearance Urine pH Ur Specific [place] Urine Protein Urine Glucose (UA) Urine Ketones Urine Occult Blood Urine Nitrate Urine Bilirubin Urine Urobilinogen Ur Leukocyte Esterase Urine RBC Urine WBC Urine Bacteria Ur Culture Indicated? Micro UA Comment Nasal Screen MRSA (PCR) Blood Type Antibody Screen Crossmatch Assessment & Plan Assessment & Plan narrative: This is an 84-year-old male with acute lower GI bleeding, elevated INR of 8.3 and a hemoglobin of 6.9 related to his chief complaint of shortness of breath/weakness. Anemia - This appears to be a GI bleed process related to the elevated INR - Follow H and H in the ICU give additional 5 mg Vitamin K today - Transfused 2 units PRBC on 09/06 - Continue IV Famotidine GI Bleeding - Reversed elevated INR with Vitamin K and consulted Surgery today. - No endoscopy unless rebleeds. Elevated INR - Unclear causes of recent Coumadin toxicity/elevated INR. No recent med changes/additions - Use Vitamin K and consider FFP/Kcentra if needed Hypertension - Continue Quinapril and hold Lasix Atrial Fibrillation - Hold anticoagulation due to GI bleeding - Discussed using Eliquis instead to avoid this Coumadin toxicity problem COPD - Continue Albuterol/Duoneb Asbestosis/Restrictive Lung Disease - Continue home oxygen [place] dosing - follow up possible Mesothelioma with outpatient Pulmonology - Dr. Talamantes Acute Kidney Injury - Continue IVF and recheck BMP tomorrow.
[2019-09-07] MEDS: QUINAPRIL 20 MG TABLET 40 MG PO (11:44)
[2019-09-07] MEDS: [UNRECOGNIZED DRUG - MIXTURE] 1 APPLIC TOP (11:46)
[2019-09-07] MEDS: CYANOCOBALAMIN (VITAMIN B-12) 100 MCG TABLET PO (11:46)
[2019-09-07] MEDS: NYSTATIN POWDER 15GM 1 APPLIC TOP (11:47)
--- NOTE | 2019-09-07 14:06 | CM.DANOTE ---
Patient is an 84 year old male who was admitted on 09/06/19 for weakness, SOB. Pt has [employer] and [employer] for insurance and his PCP is Dr. Paramjit Timmons. EMR was reviewed. Per MD, pt has chronic wound care at [facility] at baseline and uses oxygen at home. Pt likely will need SNF at d/c. Surgeon Consult and pt not a good candidate for scope at this time. PT ordered and pending. SW met bedside with pt and spouse and pt is alert and oriented and quite a sense of humor and admits to being quite stubborn and lives at home with his in [place] and is somewhat independent with ADL's at baseline. Spouse states that pt gets very short of breath with ambulation and therefore only goes short distances with a walker or leaning on her. Pt's oxygen is through [facility] and his oxygen line is a barrier to ambulating in the house. Pt states after hip surg he went to SNF in [place] and has a hx of using HH but pt states he doesn't find them very helpful as spouse states because pt does not follow through with their recommendations. SW discussed benefits of SNF or HH and spouse states she feels pt needs more strengthening in his legs so that he can safely get up from a chair or the toilet and that he has become increasingly weak and wobbly. SW discussed the need to keep spouse from getting injured as well since she is pt's main ambulation support. Spouse states that they have a substance abuse prevention coordinator about once a week but they do not have any other supportive services in place. Pt's nephew lives in [place] and available to help with building a ramp into the home and grab bars set up at home when needed but their adult children live down near [place]. Pt does not feel he is getting adequate oxygen levels with his home oxygen and SW discussed possible [facility] inquiry to see if [facility] meets his needs better and pt very interested and spouse will inquire with RT. Plan: SW to follow closely after pt works with PT and further discussion with pt and spouse regarding a higher level of care at d/c (SNF vs HH) as pt admits to being stubborn and spouse feels PT needed for strengthening. BETO Garay Discharge Planning/Care Management CM Discharge Assessment Start: 09/07/19 14:03 Freq: Status: Active Protocol: Document 09/07/19 14:03 BF (Rec: 09/07/19 14:05 [id number]) Discharge Planning Assessment Assigned Oil Well Pumper BETO Hyatt DPOA/Assigned Designee Name Spouse Doreen Contact Information [phone] Advance Directives? No Advance Directives on File Yes History Provided By Patient,Significant Other, Medical Record Has Patient been admitted in last 30 No days? Prior Living Arrangements House Household Members spouse Type of transporation used prior to Relies on Others admit Independent with ADL's No: somewhat Is patient alert and oriented? Yes Needs Assistance With Meal Prep,Managing Medications ,Home Chores / Shopping Caregiver for Another No DME Already Rented / Owned FWW / Walker,Oxygen Comment Waiting for further PT initial eval and recommendations Barriers to Discharge No Discharge Plan Longterm Facility Transportation Arrangement Spouse bedside and can provide transport if pt safe for home Additional Comment Waiting for PT eval Whiteboard Updated in Patient Room with Yes name and ext. # of Oil Well Pumper Review Status In Process Please Provide Date Initial DC 09/07/19 Assessment Was Performed Next Review Type Continued Stay Review
--- NOTE | 2019-09-07 15:24 | PC.NURSE ---
Addendum entered by Rosa Reaves R.N. 09/08/19 14:35: Original Note: Am shift Pt is cooperative with care, feels much improved today. I think I am ready to get out of here Dr Holloway into see Pt. Will recheck labs in am PT ordered. Pt is up in chair for most of shift. Spo2 on nc and 1-2 L 88-96% Reports SOB much improved. Able to walk into BR with FWW and 1PA. Allyven placed to R LLE for linear scratch from fingernail. Pt does not tolerate adhesive. No CPAP from home provided. updated and at bedside most of shift. PT in for eval @ 1500. Pt is pleased with progressing care.
[2019-09-07] MEDS: FUROSEMIDE 40 MG TABLET PO (15:51)
--- NOTE | 2019-09-07 16:05 | PT.IIE ---
Current Diagnoses Anemia, unspecified (09/06/19) Melena (09/06/19) Surgical History (Last Reviewed 09/07/19 @ 10:53 by Bert Wei MD) History of cataract surgery (Acute) Medical History (Last Reviewed 09/07/19 @ 10:53 by Bert Wei MD) Afib (Acute) PAIGE (acute kidney injury) (Acute) CHF (congestive heart failure) (Acute) CKD (chronic kidney disease) (Acute) COPD (chronic obstructive pulmonary disease) (Acute) Hyperlipidemia (Acute) Hypertension (Acute) Hypoxia (Acute) Pulmonary asbestosis (Acute) Physical Therapy Inpatient Evaluation/Re-Eval M1 PT/OT-IP Prior Functional Status Start: 09/07/19 15:47 Freq: NEEDED Status: Active Protocol: Document 09/07/19 15:15 MB (Rec: 09/07/19 16:05 MB [id number]) Medical Review Prior Functional Status Medical History Reviewed Yes Communication Pt is [place], does not answer all questions accurately Mobility and Gait Pt uses 2.5L O2 at home, has cane but will not use it. walks in front and he holds her shoulders in the house Activities of Daily Living and IADL's Assist with dressing, nearby when he bathes 1x/wk Prior Functional Level (Other details) Pt with wound on right LE since fall in 06/27 and receives wound care at [facility] Social History Household Members spouse Living Arrangements House Number of Floors (Floors) One Floor Number of Stairs To Enter/Railing? 1 step to enter Home Environment High Toilet Home Equipment Straight Cane Employment Status Retired Additional Social History Comment Uses 2.5L O2 at home M2 PT-IP Current Condition Start: 09/07/19 15:47 Freq: NEEDED Status: Active Protocol: Document 09/07/19 15:15 MB (Rec: 09/07/19 16:05 MB [id number]) Physical Therapy Current Condition Current Condition Evaluation Date 09/07/19 Treatment Diagnosis Weakness, increased HR, SOB M3 PT-IP Subjective Start: 09/07/19 15:47 Freq: NEEDED Status: Active Protocol: Document 09/07/19 15:15 MB (Rec: 09/07/19 16:05 MB [id number]) Subjective Physical Therapy Visit Type Type Initial Evaluation Visit Start Time 15:15 Visit Stop Time 15:43 Total Visit Minutes 28 Physical Therapy Visit Comments Patient Comments Pt states that he wants to go home with HHPT or to [facility] PT in [place]. would like for him to go to SNF. PT in agreement with SNF. Pt with little insight to safety issues at home. Patient Goals To go home Therapy Pain Assessment Pain Present Pain Present Denied Pain M4 PT-IP Mobility and Gait Start: 09/07/19 15:47 Freq: NEEDED Status: Active Protocol: Document 09/07/19 15:15 MB (Rec: 09/07/19 16:05 [id number]) PT-Bed Mobility Assessment Supine to Sit Supine to Sit Standby Assistance,Head of Bed Elevated,Bedrails Sit to Supine Sit to Supine Moderate Assistance Scooting Scooting to Edge of Bed Contact Guard Assistance Scooting Up and Down in Bed Contact Guard Assistance PT-Transfer Assessment Sit to and From Stand Sit to and from Stand Contact Guard Assistance Equipment Transfer Assistive Device Bed Rail,Gait Belt,Front Wheeled Walker Transfer Ability Level of Assist Contact Guard Assistance Comments Mobility Comments Decreased safety and pt requires cues to push up from the bed Gait Assessment Gait Gait Assistance Required: Minimum Assistance Distance (Feet) 5 Assistive Devices Assistive Device Gait Belt,Front Wheeled Walker Gait Deviations General Gait Pattern Decreased Stride Length, Decreased Feet Clearance, Flexed Trunk,Lateral Trunk Lean,Narrow Based Gait Comments Gait Comments Pt walks forward and backwards in ICU room, attached to tele . HR increases to 120s. Pt has 1.5L O2 donned and sats into the low 90s. Cues for safety, decreased step-length and foot clearance. PT-Balance Assessment Sitting Balance and Reactions Static Sitting Balance Ability Normal Dynamic Sitting Balance Ability Good Standing Balance and Reactions Static Standing Balance Ability Fair Dynamic Standing Balance Ability Fair Comments Other Balance Tests/Deviations/Treatment Use of RW and SBA for standing : balance M5 PT-IP Objective Assessments Start: 09/07/19 15:47 Freq: NEEDED Status: Active Protocol: Document 09/07/19 15:15 MB (Rec: 09/07/19 16:05 [id number]) Orientation Orientation/Cognition Level of Alertness Alert Orientation Name,Age,Birthday,Month,Date, Year,Day of Week,Place Language Function Ability Hard of Hearing Safety Awareness Decreased Safety Awareness Comments Decreased insight to safety situation at home and decreased receptiveness to education Gross Range of Motion Upper Extremity ROM Assessment Within Functional Limits Impairments Pt with bruising and lines Lower Extremity ROM Assessment Bilaterally Impaired Impairments Decreased hip flexion, knee extension and ankle ROM B in sitting, greater on the right LE Strength Upper Extremity Strength Assessment Bilaterally Impaired Shoulder B 4/5 flexion and abduction Elbow Right NT d/t IV; left extension 4/5 Lower Extremity Strength Assessment Bilaterally Impaired Hip B 3-/5 flexion in sitting Knee Does not follow cues, cannot reach full knee extension in sitting Ankle Does not follow cues Comments Strength Comments RLE with dressings, B LEs with areas of red bruising, pt on blood thinner Sensation Assessment Comments Sensation Comments Deferred d/t decreased cue following with MMT Other Assessments Other Other Assessments Pt is an 84 y/o male presenting with weakness, SOB and found to have mild cardiomegaly, bibasilar infiltrate, PNA and CHF pattern. He presented with low HGB on adm and after transfusion, presents with improved HGB. Pt wears 2.5L O2 at home and has a 50' O2 line that I'm worried he is going to trip over per . She reports he refuses to use an AD and so she offers for him to put his hands on her shoulders for ambulation in the house. He is tachy with short gait this date wearing 1 .5L O2 in the ICU and his sats are in the low 90s. HR increases to the 120s and then lowers to the 60s upon returning to supine. states that his medical status is one reason he does not like to walk too far at home. He presents with poor safety awareness, generalized weakness, postural changes, poor inhalation through his nose, skin integrity issues and poor safety awareness. His legs are edematous. He will benefit from acute and post- acute PT to improve strength, balance, transfers and gait. PT recommends SNF at d/c. M7 PT-IP Assessment and Plan Start: 09/07/19 15:47 Freq: NEEDED Status: Active Protocol: Document 09/07/19 15:15 MB (Rec: 09/07/19 16:05 MB [id number]) PT Summary Assessment and Plan Potential Rehabilitation Potential Fair Status of Condition at Evaluation Evolving Summary Impairments ROM,Strength,Balance,Bed Mobility,Transfers,Gait, Activity Tolerance Goals Bed Mobility Goal Independent Transfer Goal Independent Gait Goal Standby Assistance Gait Distance 100 Other Goals Pt will perform 5 reps sit to stand without UE support in less than 13 sec by d/c. Pt will perform sitting EOB exercises for 5' without LOB by d/c. Pt will ascend and descend 1 step with rail and SPB by d/c. Days to Meet Goals 10 Frequency of Treatment Frequency Of Treatment Once a Day Treatment Plan Physical Therapy Treatment Plan Bed Mobility Training,Transfer Training,Gait Training, Therapeutic Exercise,Balance Retraining,Neuromuscular Re-ed Recommendations To Nursing Amount of Assist Needed 1 Person Assist Discharge Recommendations PT Discharge Recommendations SNF Rehab
[2019-09-07] MEDS: ALLOPURINOL 300 MG TABLET PO (16:52)
--- NOTE | 2019-09-07 19:04 | DI.US.S_ITS ---
PROCEDURE: US ABDOMEN LIMITED INDICATIONS: POSSIBLE CIRRHOSIS TECHNIQUE: Real-time scanning was performed of the abdominal and retroperitoneal organs, with image documentation. COMPARISON: None. FINDINGS: Liver: The liver measures 14.5 cm in length and demonstrates normal echogenicity. Gallbladder: The gallbladder wall measures 1.7 mm in diameter. No stones, sludge, pericholecystic fluid, or sonographic Smiley's sign. Biliary ducts: Intrahepatic bile ducts are non-dilated. Extrahepatic bile duct caliber measures 4.0 mm. Normal is 6-7 mm or less in diameter, or 10 mm or less post-cholecystectomy. Pancreas: The pancreas is nonvisualized. IMPRESSION: Unremarkable hepatic ultrasound. No increased echogenicity to suggest cirrhotic transformation or hepatic steatosis. Dictated by: Dotty Brink M.D. on 09/08/2019 at 14:31 Approved by: Dotty Brink M.D. on 09/08/2019 at 14:32
[2019-09-07] MEDS: LATANOPROST 0.005% OPHTH 2.5 ML 1 DROPS EYE-BOTH (21:03)
[2019-09-07] MEDS: PANTOPRAZOLE 40 MG VIAL 20 MG IV (21:04)
[2019-09-08] VITALS (12 sets, daily range): BP systolic 103–115; BP diastolic 46–59; PULSE 56–65; RESP 18–24; TEMP 36.1–36.6; O2SAT 93–97
[2019-09-08 05:41] LABS: Basophils Absolute Auto 0 /uL (0-100); Basophils Percent Auto 0.4 % (0-2); Eosinophils Absolute Auto 0 /uL (0-450); Eosinophils Percent Auto 0.3 % (2-4); Hemoglobin 7.9 g/dL (13.5-17.5); Lymphocytes Absolute Auto 600 /uL (1100-4500); Lymphocytes Percent Auto 8.5 % (25-40); Mean Corpuscular HGB Conc 33.6 % (30-36); Mean Corpuscular Volume 101.1 fL (80-100); Monocytes Absolute Auto 400 /uL (0-900); Monocytes Percent Auto 5.4 % (3-14); Neutrophils Absolute Auto 6000 /uL (1500-7000); Neutrophils Percent Auto 85.4 % (50-75); Platelet Count 117 X10^3/uL (150-400); Red Blood Cell Count 2.34 X10^6/uL (4.5-5.9); Red Cell Distribution Width 20.7 % (11.6-14.8)
[2019-09-08 05:44] LABS: Hematocrit 23.6 % (41-53)
[2019-09-08 05:46] LABS: Prothrombin Time 22.9 SECONDS (10.1-12.7)
[2019-09-08 05:53] LABS: BUN Creatinine Ratio 42.5 (6-22); Blood Urea Nitrogen 68 mg/dL (9-20); Calcium 9.4 mg/dL (8.4-10.2); Carbon Dioxide 35 mmol/L (22-32); Chloride 96 mmol/L (98-107); Estimated Glomerular Filt Rate 41.4 mL/min (>60); Glucose 102 mg/dL (80-110); HEMOLYSIS < 15 (0-50); Potassium 4.9 mmol/L (3.4-5.1); Sodium 134 mmol/L (137-145)
[2019-09-08 06:43] LABS: Add Manual Diff / Slide Review SLIDE REVIEW
[2019-09-08 06:44] LABS: Target Cells 1+
[2019-09-08] MEDS: CYANOCOBALAMIN (VITAMIN B-12) 100 MCG TABLET PO (09:13)
[2019-09-08] MEDS: QUINAPRIL 20 MG TABLET 40 MG PO (09:13)
[2019-09-08] MEDS: PANTOPRAZOLE 40 MG VIAL 20 MG IV ×2 (09:14→21:38)
[2019-09-08] MEDS: FUROSEMIDE 40 MG TABLET PO (09:18)
--- NOTE | 2019-09-08 09:26 | PM.PN.1 ---
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 His CT scan shows an area in the left lung suspicious for mesothelioma. He has a radio repairman, Dr. Talamantes in [place] who he can follow that up with. He was seen by General surgery yesterday and the recommendation was to continue reversing Coumadin without proceeding to endoscopy unless signs of rebleeding occur. It looks like it would be reasonable to put him on Eliquis instead of Coumadin going forward. This is apparently the 2nd time in the last few months where his INR has gone up without any particular reason. He was able to get up and walk with physical therapy yesterday. He has an abdominal ultrasound pending. His hemoglobin is 7.9 today with platelets of 117 and an INR of 2.0. Exam Vital Signs (past 8 hours): - 09/08/19 03:00 09/08/19 07:00 09/08/19 08:00 Temperature 97.0 F L Pulse Rate 59 L Respiratory Rate 21 Blood Pressure 109/50 L Pulse Oximetry 97 94 96 Fraction of Inspired Oxygen 26 Oxygen Delivery Method Nasal Cannula Oxygen Flow Rate 1 Narrative Exam Narrative: He is alert and oriented x3. He still looks quite weak but is in no apparent distress. Heart is regular rate and rhythm without murmur. Lungs are clear to auscultation bilaterally. Extremities have trace edema of both ankles. Objective Labs Result Diagrams: 09/08/19 04:48 09/08/19 04:48 Labs: Laboratory Results - last 24 hr 09/08/19 09/08/19 09/08/19 04:48 04:48 04:48 WBC 7.0 D RBC 2.34 L Hgb 7.9 L Hct 23.6 L MCV 101.1 H MCH 34.0 MCHC 33.6 RDW 20.7 H Plt Count 117 L Neut % (Auto) 85.4 H Lymph % (Auto) 8.5 L [place] % (Auto) 5.4 Eos % (Auto) 0.3 L Baso % (Auto) 0.4 Neut # (Auto) 6000 Lymph # (Auto) 600 L [place] # (Auto) 400 Eos # (Auto) 0 Baso # (Auto) 0 RBC Morphology See below Target Cells 1+ H PT 22.9 H D INR 2.0 H Sodium 134 L Potassium 4.9 Chloride 96 L Carbon Dioxide 35 H BUN 68 H Creatinine 1.60 H Estimated GFR 41.4 L BUN/Creatinine Ratio 42.5 H Glucose 102 Calcium 9.4 Assessment & Plan Assessment & Plan narrative: This is an 84-year-old male who was admitted with acute lower GI bleeding, elevated INR of 8.3 and a hemoglobin of 6.9 related to his chief complaint of shortness of breath/weakness. Anemia - This appears to be a GI bleed process related to the elevated INR - Follow CBC - Transfused 2 units PRBC on 09/06 - Continue IV Famotidine GI Bleeding - Reversed elevated INR with Vitamin K X 2 - No endoscopy unless rebleeds per Dr. Wei Elevated INR - Unclear causes of recent Coumadin toxicity/elevated INR. No recent med changes/additions - down to 2.0 on 09/08 after Vitamin K X 2 - Liver US still pending Hypertension - Continue Quinapril and hold Lasix Atrial Fibrillation - Hold anticoagulation due to GI bleeding - Discussed using Eliquis instead to avoid this Coumadin toxicity problem COPD - Continue Albuterol/Duoneb Asbestosis/Restrictive Lung Disease - Continue home oxygen NC dosing - follow up possible Mesothelioma with outpatient Pulmonology - Dr. Talamantes Acute Kidney Injury - Continue IVF and recheck BMP tomorrow. Disposition - SNF for rehab tomorrow 09/09 - Continue PT for extreme weakness
--- NOTE | 2019-09-08 13:40 | PT.IPTN ---
Current Diagnoses Anemia, unspecified (09/06/19) Melena (09/06/19) Physical Therapy Treatment Note M2 PT-IP Current Condition Start: 09/07/19 15:47 Freq: NEEDED Status: Active Protocol: Document 09/07/19 15:15 MB (Rec: 09/07/19 16:05 MB [id number]) Physical Therapy Current Condition Current Condition Evaluation Date 09/07/19 Treatment Diagnosis Weakness, increased HR, SOB M3 PT-IP Subjective Start: 09/07/19 15:47 Freq: NEEDED Status: Active Protocol: Document 09/08/19 13:17 AW (Rec: 09/08/19 13:40 AW [id number]) Subjective Physical Therapy Visit Type Type Treatment Note Visit Start Time 11:13 Visit Stop Time 11:43 Total Visit Minutes 30 Physical Therapy Visit Comments Patient Comments Pt is reluctantly willing to participate in PT, but states he has already had a shower today and walked the halls. M4 PT-IP Mobility and Gait Start: 09/07/19 15:47 Freq: NEEDED Status: Active Protocol: Document 09/08/19 13:17 AW (Rec: 09/08/19 13:40 AW [id number]) PT-Transfer Assessment Sit to and From Stand Sit to and from Stand Contact Guard Assistance Equipment Transfer Assistive Device Gait Belt,Front Wheeled Walker Transfers Transfer Destination Bed,Toilet Transfer Technique pt ambulated with FWW Transfer Ability Level of Assist Contact Guard Assistance Comments Mobility Comments Pt encountered sitting up in chair. He required FWW CGA for all OOB mobility. Gait Assessment Gait Gait Assistance Required: Contact Guard Assist Distance (Feet) 15 Able to Maintain Weight Bearing Status Yes During Gait Assistive Devices Assistive Device Gait Belt,Front Wheeled Walker Gait Deviations General Gait Pattern Decreased Stride Length, Decreased Feet Clearance, Flexed Trunk,Lateral Trunk Lean,Narrow Based Gait Factors Limiting Gait Function Factors Limiting Gait Function Decreased Activity Tolerance, Decreased Strength,Poor Balance,Poor Safety Awareness, Respiratory Distress Comments Gait Comments Pt ambulated from bed to toilet using FWW CGA. Continued verbal cues for step length and foot clearance. M5 PT-IP Objective Assessments Start: 09/07/19 15:47 Freq: NEEDED Status: Active Protocol: Document 09/07/19 15:15 MB (Rec: 09/07/19 16:05 MB [id number]) Orientation Orientation/Cognition Level of Alertness Alert Orientation Name,Age,Birthday,Month,Date, Year,Day of Week,Place Language Function Ability Hard of Hearing Safety Awareness Decreased Safety Awareness Comments Decreased insight to safety situation at home and decreased receptiveness to education Gross Range of Motion Upper Extremity ROM Assessment Within Functional Limits Impairments Pt with bruising and lines Lower Extremity ROM Assessment Bilaterally Impaired Impairments Decreased hip flexion, knee extension and ankle ROM B in sitting, greater on the right LE Strength Upper Extremity Strength Assessment Bilaterally Impaired Shoulder B 4/5 flexion and abduction Elbow Right NT d/t IV; left extension 4/5 Lower Extremity Strength Assessment Bilaterally Impaired Hip B 3-/5 flexion in sitting Knee Does not follow cues, cannot reach full knee extension in sitting Ankle Does not follow cues Comments Strength Comments RLE with dressings, B LEs with areas of red bruising, pt on blood thinner Sensation Assessment Comments Sensation Comments Deferred d/t decreased cue following with MMT Other Assessments Other Other Assessments Pt is an 84 y/o male presenting with weakness, SOB and found to have mild cardiomegaly, bibasilar infiltrate, PNA and CHF pattern. He presented with low HGB on adm and after transfusion, presents with improved HGB. Pt wears 2.5L O2 at home and has a 50' O2 line that I'm worried he is going to trip over per . She reports he refuses to use an AD and so she offers for him to put his hands on her shoulders for ambulation in the house. He is tachy with short gait this date wearing 1 .5L O2 in the ICU and his sats are in the low 90s. HR increases to the 120s and then lowers to the 60s upon returning to supine. states that his medical status is one reason he does not like to walk too far at home. He presents with poor safety awareness, generalized weakness, postural changes, poor inhalation through his nose, skin integrity issues and poor safety awareness. His legs are edematous. He will benefit from acute and post- acute PT to improve strength, balance, transfers and gait. PT recommends SNF at d/c. M6 PT-IP Treatment Start: 09/07/19 15:47 Freq: NEEDED Status: Active Protocol: Document 09/08/19 13:17 AW (Rec: 09/08/19 13:40 AW [id number]) Physical Therapy Treatment Education Education Provided Precautions,Safety Other Treatments Other Treatment Performed Ther ex including LAQ, seated marching, ankle pumps. Pt also performed 5 time sit to stand from 20 bed surface without use of arms with a time of 19. 3 seconds M7 PT-IP Assessment and Plan Start: 09/07/19 15:47 Freq: NEEDED Status: Active Protocol: Document 09/08/19 13:17 AW (Rec: 09/08/19 13:40 AW [id number]) PT Summary Assessment and Plan Summary Assessment Summary Pt willng to participate in ther ex and sit to stand training this date with good tolerance. SpO2 did drop from 96% at rest to 84% during sit to stand exercise. RN notified . Pt left in washroom at end of session with RN attending. Goals Bed Mobility Goal Independent Transfer Goal Independent Gait Goal Standby Assistance Gait Distance 100 Other Goals Pt will perform 5 reps sit to stand without UE support in less than 13 sec by d/c. Pt will perform sitting EOB exercises for 5' without LOB by d/c. Pt will ascend and descend 1 step with rail and SPB by d/c. Days to Meet Goals 10 Frequency of Treatment Frequency Of Treatment Once a Day Treatment Plan Physical Therapy Treatment Plan Bed Mobility Training,Transfer Training,Gait Training, Therapeutic Exercise,Balance Retraining,Neuromuscular Re-ed Recommendations To Nursing Amount of Assist Needed Standby Assistance Discharge Recommendations PT Discharge Recommendations SNF Rehab
--- NOTE | 2019-09-08 14:01 | CM.DANOTE ---
DCP/continued: Reviewed chart. Received notification in AM rounds that patient will need SNF when medically stable. COMBER TENDER met with patient and spouse/Doreen at bedside explained CM/SW role. Both patient and spouse in agreement that short SNF stay when medically stable is needed. Provided patient and spouse with Medicare SNF choice list. Per spouse, current first choice is [facility]. Patient provided COMBER TENDER with permission to call [facility] and have them review for bed. Left vm with admit at [facility] indicating probable d/c within the next 24-48hrs. Spouse will look at list to determine second choice if needed. Spouse reports that patient goes to weekly wound care appointments at [facility] for specialized dressing change to his right lower extremity. Next appointment is scheduled for tomorrow 12-2 at 2:45pm. Spouse wants to maker sure that patient's dressing change appointments are addressed both with [facility] for tomorrow and SNF. Spouse unsure that these particular dressing changes can be done at SNF. Therefore, in vm to [facility] included the possibility of patient going out for appointment 1x per week for wound care purposes. P: Pending. Anticipate SNF when medically stable. [facility] reviewing. May need second choice, spouse aware. BETO Mcoky
--- NOTE | 2019-09-08 14:37 | PC.NURSE ---
AM shift Pt is A/o x4, working with PT. U/s done of liver prior to lunch. Message left for wound care to change allyven to R knee, as Pt has weekly dressing change appt at the wound clinic 09/09 @ 1445pm. Education provided re- starting eliquis, as Pt is planing this prior to d/c. Multiple skin areas bruised and covered in Allyven. Using call light for needs. updated on POC. 2L Spo2 tolerated, per home routine.
--- NOTE | 2019-09-08 14:40 | PC.NURSE ---
Addendum entered by Natalia Galeano R.N. 09/08/19 15:35: Patient has mildly distended abdomen. Bowel sounds hyperactive x4, patient denies abdominal tenderness, abdomen is soft to palpitation. Original Note: Patient transferred from ICU to floor. Patient is A/Ox4, and friends are at bedside. Patient c/o SOB on 1 L during transfer. Patient returned to 2L. O2 at 96%, patient states SOB is improving at this time, breathing is unlabored and of normal depth and rate (20). Lung sounds: diminished in bases, clear bilaterally. Cardiac: BP at 103/53, HR 70. Skin: Allyvn dsg on right knee is dry and intact with quarter size shadow drainage. Allvyn dsg placed on left upper arm d/t small skin tear that randomly started to bleed during assessment, dated and time. confirms this sudden in normal. Skin is dry, thin, with multiple bruises and tears. Venous discoloration bilateral lower extremities. Cap refill<2 seconds. Pulses equal bilateral. Patient's IV flushed with 10 ml NS, patent. Site has some bleeding, gauze applied and reapplied JAQUELINE wrap. Patient ambulated to restroom for BM with assistance from aide, 1 p with a walker. Call light placed in reach, instructed to call when finished.
[2019-09-08] MEDS: ALLOPURINOL 300 MG TABLET PO (18:41)
[2019-09-08 21:13] LABS: BUN Creatinine Ratio 44.7 (6-22); Blood Urea Nitrogen 67 mg/dL (9-20); Calcium 9.6 mg/dL (8.4-10.2); Carbon Dioxide 35 mmol/L (22-32); Chloride 96 mmol/L (98-107); Estimated Glomerular Filt Rate 44.6 mL/min (>60); Glucose 98 mg/dL (80-110); HEMOLYSIS < 15 (0-50); Magnesium 2.2 mg/dL (1.6-2.3); Potassium 4.8 mmol/L (3.4-5.1); Sodium 136 mmol/L (137-145)
--- NOTE | 2019-09-08 21:37 | DI.ECHO.S_ITS ---
[facility] +---------+ Hospital +---------+ : : [address] : : : : [id number] : : : : Phone: [phone]+ Echocardiogram Report + + :Name: RONAK SINGH Study Date: 09/09/2019 Height: 68 in : :[facility] Weight: 212 lb: : Gender: Male BSA: 2.1 m2 : :: 1935 Age: 84 yrs : :Reason For Study: SOB : : Performed By: [facility] Staff : :Referring: JOHNSON GALLAGHER : + + Interpretation Summary Mild concentric left ventricular hypertrophy with ejection fraction 55-60%. Flattened septum is consistent with RV pressure/volume overload. Moderately dilated right ventricle with moderately reduced right ventricular systolic function. Severe biatrial enlargement. Mild aortic stenosis. Mild mitral annular calcification. Mild to moderate mitral regurgitation. Severe tricuspid regurgitation. The right ventricular systolic pressure is estimated to be at least 66 mmHg based on an estimated right atrial pressure of 15 mm Hg. Severe pulmonary hypertension. Procedure: A two-dimensional transthoracic echocardiogram with color flow and Doppler was performed. The study quality was technically adequate. There is no prior echocardiogram noted for this patient. Left Ventricle: The left ventricle is normal in size. There is mild concentric left ventricular hypertrophy. The ejection fraction is estimated to be 55-60%. Flattened septum is consistent with RV pressure/volume overload. There are no other obvious focal wall motion abnormalities. Right Ventricle: The right ventricle is moderately dilated. Right ventricular systolic function is moderately reduced. Atria: There is severe biatrial enlargement. The interatrial septum is intact with no evidence for an atrial septal defect. Mitral Valve: The mitral valve leaflets appear mildly thickened, but open well. There is mild mitral annular calcification. There is mild to moderate mitral regurgitation. Aortic Valve: The aortic valve is mildly calcified. There is mild aortic stenosis. The calculated aortic valve area is 1.4 cm2. The peak aortic velocity is 2.4 m/sec. The aortic valve mean gradient is 11 mmHg. No aortic regurgitation is present. Tricuspid Valve: The tricuspid valve leaflets are thin and pliable. There is severe tricuspid regurgitation. The right ventricular systolic pressure is estimated to be at least 66 mmHg based on an estimated right atrial pressure of 15 mm Hg. There is severe pulmonary hypertension. Pulmonic Valve: The pulmonic valve is not well visualized. There is trace pulmonic regurgitation. Great Vessels: The aortic root is normal size. The ascending aorta is at the upper limits of normal in size. The pulmonary artery is normal size. The IVC is dilated (diameter is greater than 2.1 cm) and it collapses less than 50% with a sniff. This suggests a high right atrial pressure of 15 mm Hg. Pericardium/ Pleura There is no pericardial effusion. There is no pleural effusion. MMode/2D Measurements & Calculations LVIDd: 5.4 cm LVOT diam: 2.2 cm LVIDs: 3.8 cm Ao root diam: 3.2 cm FS: 30.2 % Aortic Jxn: 2.9 cm EPSS: 1.0 cm asc Aorta Diam: 3.6 cm IVSd: 1.2 cm LVPWd: 1.4 cm LV giordano. diameter/BSA (cm/m^2): 2.6 LV sys. diameter/BSA (cm/m^2): 1.8 LA A2 area: 39.1 cm2 RA long axis: 9.0 cm LA A4 area: 40.6 cm2 RA area: 52.6 cm2 LA length (vol): 7.7 cm RA vol: 262.2 ml LA vol: 174.7 ml RA : 125.1 ml/m2 LA vol index: 83.4 ml/m2 TAPSE: 1.5 cm Doppler Measurements & Calculations Ao V2 max: 238.4 cm/sec LVOT Max Malachi: 86.1 cm/sec Ao V2 mean: 148.0 cm/sec LV V1 max P.0 mmHg Ao max P.8 mmHg LV V1 VTI: 19.5 cm Ao mean P.9 mmHg KATHLEEN(I,D): 1.4 cm2 Ao V2 VTI: 53.5 cm KATHLEEN(V,D): 1.3 cm2 sev ratio: 0.36 KATHLEEN indexed to BSA (cm^2/m^2): 0.65 MV E max malachi: 134.1 cm/sec TR max malachi: 321.2 cm/sec MV A max malachi: 31.7 cm/sec TR max P.4 mmHg MV E/A: 4.2 PA V2 max: 128.2 cm/sec Med Peak E' Malachi: 7.6 cm/sec PA V2 mean: 84.3 cm/sec E/E' med: 17.6 PA mean P.3 mmHg Lat Peak E' Malachi: 7.6 cm/sec E/E' lat: 17.7 E/e' average: 17.6 MV dec time: 0.20 sec SV(LVOT): 72.6 ml Electronically signed by: Alejandro Savage on Reading Physician:09/09/2019 12:52 PM
[2019-09-08] MEDS: LATANOPROST 0.005% OPHTH 2.5 ML 1 DROPS EYE-BOTH (21:38)
[2019-09-08 22:02] LABS: Creatine Kinase 27 U/L (55-170)
[2019-09-08 22:15] LABS: Troponin I 0.028 ng/mL (0.01-0.034)
--- NOTE | 2019-09-08 23:06 | PM.EVENT ---
Event Note Date Patient Seen: 09/08/19 Time Patient Seen: 21:12 Event Note: Mr. 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 The patient has been diagnosed with a GI bleeds which is stabilized and normalization of his supratherapeutic INR. This evening the patient developed a brief period of multifocal PVCs progressing to couplets and approximately 1-1/2 minute sustained episode of AIVR and recurrent AVR with a regular wide ventricular rhythm at a rate of 67. Patient was immediately evaluated time of occurrence was found to have no complaints of chest pain, felt no palpitations, had no nausea or diaphoresis. Patient continues to have mild shortness of breath though he states that is no worse than has been. -stat 12 lead EKG obtained finding atrial fibrillation which is compared to previous EKG with no significant changes. -stat labs ordered: BMP and magnesium. The patient is found to have a potassium of 4.8 and magnesium at 2.2. -cardiac panel is ordered with the patient notably having elevated creatinine on admission today improved to 1.5 on this evening's stat labs. Total CK is found to be 27 and troponin is 0.028 which is equal to his prior troponin on 09/06/2019. -the patient previously had elevated BNP at over 1200, will obtain echocardiogram. Labs an EKG are reassuring in the patient has had no symptoms. There been no further recurrence of the arrhythmia. Will recheck labs in the morning and continue to monitor on telemetry.
[2019-09-09] VITALS (18 sets, daily range): BP systolic 102–126; BP diastolic 46–68; PULSE 63–68; RESP 16–28; TEMP 36.3–36.4; O2SAT 90–98
[2019-09-09 05:37] LABS: INR 1.4 (0.9-1.3); Prothrombin Time 16.3 SECONDS (10.1-12.7)
[2019-09-09 05:38] LABS: Add Manual Diff / Slide Review NO; Basophils Absolute Auto 0 /uL (0-100); Basophils Percent Auto 0.6 % (0-2); Eosinophils Absolute Auto 0 /uL (0-450); Eosinophils Percent Auto 0.6 % (2-4); Hematocrit 23.4 % (41-53); Hemoglobin 7.8 g/dL (13.5-17.5); Lymphocytes Absolute Auto 400 /uL (1100-4500); Lymphocytes Percent Auto 6.1 % (25-40); Mean Corpuscular HGB Conc 33.4 % (30-36); Mean Corpuscular Hemoglobin 34.1 PG (26-34); Mean Corpuscular Volume 102.1 fL (80-100); Monocytes Absolute Auto 500 /uL (0-900); Monocytes Percent Auto 6.6 % (3-14); Neutrophils Absolute Auto 6000 /uL (1500-7000); Neutrophils Percent Auto 86.1 % (50-75); Platelet Count 114 X10^3/uL (150-400); Red Blood Cell Count 2.29 X10^6/uL (4.5-5.9); Red Cell Distribution Width 20.7 % (11.6-14.8)
[2019-09-09 05:45] LABS: Blood Urea Nitrogen 64 mg/dL (9-20); Calcium 9.6 mg/dL (8.4-10.2); Carbon Dioxide 35 mmol/L (22-32); Chloride 98 mmol/L (98-107); Creatine Kinase 21 U/L (55-170); Estimated Glomerular Filt Rate 41.4 mL/min (>60); Glucose 87 mg/dL (80-110); HEMOLYSIS < 15 (0-50); Potassium 4.8 mmol/L (3.4-5.1); Sodium 137 mmol/L (137-145)
[2019-09-09 05:55] LABS: Troponin I 0.027 ng/mL (0.01-0.034)
[2019-09-09 06:28] LABS: Anisocytosis 2+
[2019-09-09] MEDS: CYANOCOBALAMIN (VITAMIN B-12) 100 MCG TABLET PO (08:51)
[2019-09-09] MEDS: PANTOPRAZOLE 40 MG VIAL 20 MG IV ×2 (08:52→20:01)
[2019-09-09] MEDS: FUROSEMIDE 40 MG TABLET PO (08:52)
[2019-09-09] MEDS: QUINAPRIL 20 MG TABLET 40 MG PO (08:52)
--- NOTE | 2019-09-09 10:35 | PC.NURSE ---
Day shift: Dressings changed on Pt's left arm. Tolerated well. They are dated.
--- NOTE | 2019-09-09 11:22 | PC.NURSE ---
Day shift: CROP ROLLER called to report abnormal tele reading and this reading reported to DR Lovett. Pt is currently having echo done. Spouse in room for support. Pt denies any pain. Per Dr Lovett ok to not monitor O2 continuously. Call light in reach.
--- NOTE | 2019-09-09 15:58 | PT.IPTN ---
Current Diagnoses Anemia, unspecified (09/06/19) Melena (09/06/19) Physical Therapy Treatment Note M2 PT-IP Current Condition Start: 09/07/19 15:47 Freq: NEEDED Status: Active Protocol: Document 09/07/19 15:15 MB (Rec: 09/07/19 16:05 MB [id number]) Physical Therapy Current Condition Current Condition Evaluation Date 09/07/19 Treatment Diagnosis Weakness, increased HR, SOB M3 PT-IP Subjective Start: 09/07/19 15:47 Freq: NEEDED Status: Active Protocol: Document 09/09/19 15:43 AW (Rec: 09/09/19 15:58 AW [id number]) Subjective Physical Therapy Visit Type Type Treatment Note Visit Start Time 15:21 Visit Stop Time 15:41 Total Visit Minutes 20 Notes Pt contacted earlier in the day at which time he refused treatment but was open to possibility of attempting mobility later. Physical Therapy Visit Comments Patient Comments Pt is willing to participate in therapy with encouragement from and hospitalist. Therapy Pain Assessment Pain When Pain Assessed During Mobility Pain Present Pain Present Denied Pain M4 PT-IP Mobility and Gait Start: 09/07/19 15:47 Freq: NEEDED Status: Active Protocol: Document 09/09/19 15:43 AW (Rec: 09/09/19 15:58 AW [id number]) PT-Bed Mobility Assessment Supine to Sit Supine to Sit Standby Assistance,Head of Bed Elevated Scooting Scooting to Edge of Bed Contact Guard Assistance PT-Transfer Assessment Sit to and From Stand Sit to and from Stand Contact Guard Assistance Equipment Transfer Assistive Device Gait Belt,Front Wheeled Walker Transfers Transfer Destination Chair Transfer Technique pt ambulated with FWW Transfer Ability Level of Assist Contact Guard Assistance Comments Mobility Comments Pt completed supine to sit with HOB elevated SBA and with increased time. He required verbal cues for safe use of FWW during transfers. Gait Assessment Gait Gait Assistance Required: Contact Guard Assist Distance (Feet) 40 Assistive Devices Assistive Device Gait Belt,Front Wheeled Walker Gait Deviations General Gait Pattern Decreased Stride Length, Decreased Feet Clearance, Flexed Trunk,Lateral Trunk Lean,Narrow Based Gait Factors Limiting Gait Function Factors Limiting Gait Function Decreased Activity Tolerance, Decreased Strength,Poor Balance,Poor Safety Awareness, Respiratory Distress Comments Gait Comments Pt ambulated around bed in room for a total of 40 feet with SpO2 dropping from mid-90 's at rest on 2 LPM to mid-80' s during short bout ambulation . Pt required fewer cues for pursed lip breathing this visit and recovered SpO2 to mid-90's within 2 minutes of seated rest. M5 PT-IP Objective Assessments Start: 09/07/19 15:47 Freq: NEEDED Status: Active Protocol: Document 09/07/19 15:15 MB (Rec: 09/07/19 16:05 MB [id number]) Orientation Orientation/Cognition Level of Alertness Alert Orientation Name,Age,Birthday,Month,Date, Year,Day of Week,Place Language Function Ability Hard of Hearing Safety Awareness Decreased Safety Awareness Comments Decreased insight to safety situation at home and decreased receptiveness to education Gross Range of Motion Upper Extremity ROM Assessment Within Functional Limits Impairments Pt with bruising and lines Lower Extremity ROM Assessment Bilaterally Impaired Impairments Decreased hip flexion, knee extension and ankle ROM B in sitting, greater on the right LE Strength Upper Extremity Strength Assessment Bilaterally Impaired Shoulder B 4/5 flexion and abduction Elbow Right NT d/t IV; left extension 4/5 Lower Extremity Strength Assessment Bilaterally Impaired Hip B 3-/5 flexion in sitting Knee Does not follow cues, cannot reach full knee extension in sitting Ankle Does not follow cues Comments Strength Comments RLE with dressings, B LEs with areas of red bruising, pt on blood thinner Sensation Assessment Comments Sensation Comments Deferred d/t decreased cue following with MMT Other Assessments Other Other Assessments Pt is an 84 y/o male presenting with weakness, SOB and found to have mild cardiomegaly, bibasilar infiltrate, PNA and CHF pattern. He presented with low HGB on adm and after transfusion, presents with improved HGB. Pt wears 2.5L O2 at home and has a 50' O2 line that I'm worried he is going to trip over per . She reports he refuses to use an AD and so she offers for him to put his hands on her shoulders for ambulation in the house. He is tachy with short gait this date wearing 1 .5L O2 in the ICU and his sats are in the low 90s. HR increases to the 120s and then lowers to the 60s upon returning to supine. states that his medical status is one reason he does not like to walk too far at home. He presents with poor safety awareness, generalized weakness, postural changes, poor inhalation through his nose, skin integrity issues and poor safety awareness. His legs are edematous. He will benefit from acute and post- acute PT to improve strength, balance, transfers and gait. PT recommends SNF at d/c. M6 PT-IP Treatment Start: 09/07/19 15:47 Freq: NEEDED Status: Active Protocol: Document 09/09/19 15:43 AW (Rec: 09/09/19 15:58 AW [id number]) Physical Therapy Treatment Education Education Provided Precautions,Safety Other Treatments Other Treatment Performed Ther ex including AP, LAQ, seated marching with SpO2 dropping mid-90's to upper 80' s with effort. M7 PT-IP Assessment and Plan Start: 09/07/19 15:47 Freq: NEEDED Status: Active Protocol: Document 09/09/19 15:43 AW (Rec: 09/09/19 15:58 AW [id number]) PT Summary Assessment and Plan Summary Assessment Summary Pt continues to desat on 2 LPM supplemental O2. He reported respiratory effort during 40 feet ambulation was 4/10 on a modified rating of perceived exertion. Pt can tolerate therapy and remains a good candidate for SNF rehab when medically stable in order to increase strength and increase independence with functional mobility. Goals Bed Mobility Goal Independent Transfer Goal Independent Gait Goal Standby Assistance Gait Distance 100 Other Goals Pt will perform 5 reps sit to stand without UE support in less than 13 sec by d/c. Pt will perform sitting EOB exercises for 5' without LOB by d/c. Pt will ascend and descend 1 step with rail and SPB by d/c. Days to Meet Goals 10 Frequency of Treatment Frequency Of Treatment Once a Day Treatment Plan Physical Therapy Treatment Plan Bed Mobility Training,Transfer Training,Gait Training, Therapeutic Exercise,Balance Retraining,Neuromuscular Re-ed Recommendations To Nursing Amount of Assist Needed 1 Person Assist Discharge Recommendations PT Discharge Recommendations SNF Rehab
--- NOTE | 2019-09-09 16:48 | PM.PN.1 ---
Subjective Subjective Date Patient Seen: 09/09/19 Interval history: Mehul Reeves is a 84-year-old male with a past medical history significant for hypertension, atrial fibrillation on warfarin, gout, and 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 The patient is resting in bed comfortably. He reports fatigue and lethargy. He is mildly somnolent. Discussed echocardiogram findings in detail with the patient and his spouse. Plan to transfuse 1 unit PRBC due to right-sided heart failure but and give additional furosemide 40 mg IV x1. He denies headache, shortness of breath, chest pain, abdominal pain, nausea, vomiting, fever, chills, dysuria, diarrhea or constipation. He is voiding and eliminating without difficulty. He is up ambulating with assistance. Exam Vital Signs (past 8 hours): - 09/09/19 11:02 09/09/19 11:09 09/09/19 12:29 Temperature Pulse Rate 66 Respiratory Rate 16 Blood Pressure 102/52 L Pulse Oximetry 96 96 96 09/09/19 15:50 Temperature 97.3 F L Pulse Rate 64 Respiratory Rate 20 Blood Pressure 103/51 L Pulse Oximetry 90 L Fraction of Inspired Oxygen 26 Oxygen Delivery Method Nasal Cannula Oxygen Flow Rate 2 Narrative Exam Narrative: General: Elderly gentleman lying in bed and in no acute distress, well-developed, well-nourished, mildly somnolent but appropriately interactive. HEENT: Normocephalic, atraumatic. External ears without defect. Pupils equal, round, and reactive to light. Anicteric sclerae, moist conjunctivae, and no lid lag. Oropharynx free of erythema and cobble stoning with moist mucosa. Neck: Supple with full range of motion. No jugular venous distension. No lymphadenopathy or thyromegaly. Cardiovascular: Regular rate and rhythm without murmurs, rubs, or gallops appreciated Pulmonary: Clear to auscultation bilaterally without crackles, wheezes, or rhonchi. Normal respiratory effort with no use of accessory muscles. Abdomen: Bowel tones present. Soft, nontender, nondistended. No hepatosplenomegaly or masses appreciated. Extremities: No clubbing or cyanosis. Stasis dermatitis of bilateral lower extremities. Dependent edema to hips bilaterally. Wound over right knee covered with dressing C/D/I. Skin: Normal temperature, turgor, and texture; no rash, ulcers, or subcutaneous nodules appreciated. Neurological: Cranial nerves grossly intact. Psychiatric: Normal mood and affect. Alert and oriented to person, place, and time. Objective Labs Result Diagrams: 09/10/19 05:38 09/10/19 05:38 Labs: Laboratory Results - last 24 hr 09/08/19 09/08/19 09/09/19 20:38 20:38 05:12 WBC 7.0 RBC 2.29 L Hgb 7.8 L Hct 23.4 L MCV 102.1 H MCH 34.1 H MCHC 33.4 RDW 20.7 H Plt Count 114 L Neut % (Auto) 86.1 H Lymph % (Auto) 6.1 L [place] % (Auto) 6.6 Eos % (Auto) 0.6 L Baso % (Auto) 0.6 Neut # (Auto) 6000 Lymph # (Auto) 400 L [place] # (Auto) 500 Eos # (Auto) 0 Baso # (Auto) 0 RBC Morphology See below Anisocytosis 2+ H PT INR Sodium 136 L Potassium 4.8 Chloride 96 L Carbon Dioxide 35 H BUN 67 H Creatinine 1.50 H Estimated GFR 44.6 L BUN/Creatinine Ratio 44.7 H Glucose 98 Calcium 9.6 Magnesium 2.2 Total Creatine Kinase 27 L CK-MB (CK-2) TNP CK-MB (CK-2) Rel Index TNP Troponin I 0.028 Blood Type Antibody Screen Crossmatch 09/09/19 09/09/19 09/09/19 05:12 05:12 05:12 WBC RBC Hgb Hct MCV MCH MCHC RDW Plt Count Neut % (Auto) Lymph % (Auto) [place] % (Auto) Eos % (Auto) Baso % (Auto) Neut # (Auto) Lymph # (Auto) [place] # (Auto) Eos # (Auto) Baso # (Auto) RBC Morphology Anisocytosis PT 16.3 H D INR 1.4 H Sodium 137 Potassium 4.8 Chloride 98 Carbon Dioxide 35 H BUN 64 H Creatinine 1.60 H Estimated GFR 41.4 L BUN/Creatinine Ratio 40.0 H Glucose 87 Calcium 9.6 Magnesium Total Creatine Kinase 21 L CK-MB (CK-2) TNP CK-MB (CK-2) Rel Index TNP Troponin I 0.027 Blood Type Antibody Screen Crossmatch 09/09/19 15:50 WBC RBC Hgb Hct MCV MCH MCHC RDW Plt Count Neut % (Auto) Lymph % (Auto) [place] % (Auto) Eos % (Auto) Baso % (Auto) Neut # (Auto) Lymph # (Auto) [place] # (Auto) Eos # (Auto) Baso # (Auto) RBC Morphology Anisocytosis PT INR Sodium Potassium Chloride Carbon Dioxide BUN Creatinine Estimated GFR BUN/Creatinine Ratio Glucose Calcium Magnesium Total Creatine Kinase CK-MB (CK-2) CK-MB (CK-2) Rel Index Troponin I Blood Type O Positive Antibody Screen Negative Crossmatch See Detail Assessment & Plan Assessment & Plan narrative: Mehul Reeves is a 84-year-old male with a past medical history significant for hypertension, atrial fibrillation on warfarin, gout, and 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 1. Acute decompensated cor pulmonale, present on admission. Active. -Patient has dependent edema up to hips bilaterally. -Echocardiogram demonstrated mild concentric left ventricular hypertrophy with ejection fraction 55-60%, flattened septum is consistent with RV pressure/volume overload, moderately dilated right ventricle with moderately reduced right ventricular systolic function, severe biatrial enlargement, mild aortic stenosis, mild mitral annular calcification, mild to moderate mitral regurgitation, severe tricuspid regurgitation, RVSP 66 mmHg, severe pulmonary hypertension. -Continue quinapril 40 mg daily. -Continue home furosemide 40 mg daily. Plan to give an additional furosemide 40 mg IV x1 after transfusion of 1 unit PRBC as below. -Continue to monitor strict I&O and daily weights. Net -500 mL. -Started fluid restriction of 1.5 L. -Continue heart healthy and low-sodium diet. -Continue to monitor electrolytes and replete as necessary. Goal K+> 4.0 and Mg+> 2.0. 2. Acute GI bleed with acute blood loss anemia, secondary to supratherapeutic INR, present on admission. Resolved. -Patient appears to have GI bleed process related to elevated INR. -Initial hemoglobin 6.9. Received 2 units PRBC on 09/06. Reversed elevated INR with Vitamin K X 2. Hemoglobin stable at 7.8. Plan to transfuse 1 additional unit due to right-sided heart failure and give additional furosemide 40 mg IV x1. Transfusion goal hemoglobin < 8.0. -Consulted general surgery, Dr. Wei, who does not plan on performing endoscopy as patient is high risk and would only perform if patient rebleeds. -Continue Protonix 40 mg twice daily. 3. Supratherapeutic INR, present on admission. Resolved. -Unclear cause of recent Coumadin toxicity/elevated INR. No recent medication changes or additions. No recent antibiotics. -Initial INR 8.3. Received vitamin K x2. INR now 1.4. -Liver US unremarkable. -Discontinued warfarin as patient has had recurrent unexplainable elevation of INR. -Start Eliquis 2.5 mg twice daily. 4. Chronic atrial fibrillation with intermittent idioventricular rhythm, present on admission. Stable. -Initially held anticoagulation due to GI bleeding. -[id number] score is 5 placing him at high risk of VTE. -Discontinued warfarin as patient has had recurrent unexplainable elevation of INR. Start Eliquis 2.5 mg twice daily. -Continue to monitor electrolytes in lieu of diuresis and replete as necessary. Goal K+> 4.0 and Mg+> 2.0. -Ordered TSH with reflex, pending. 5. Chronic hypoxemic respiratory failure, secondary to restrictive and obstructive lung disease, present on admission. Stable. -Patient is on 2.5 L continuous supplemental oxygen at home and he is currently at his baseline. 6. COPD, present on admission. Stable. -Does not represent COPD exacerbation. -Continue Albuterol/Duoneb as needed. 7. 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 Presumed stable. -Continue home supplemental oxygen with 2.5 L continuously via nasal cannula. -Continue outpatient follow-up with medical researcher, Dr. Talamantes, for possible Mesothelioma. 8. Acute kidney injury, on chronic kidney disease stage III, present on admission. Acute kidney injury resolved. -Baseline creatinine unknown. Initial creatinine 2.6. Creatinine trended down to 1.5-1.6 which is likely patient's baseline. -Avoid nephrotoxic agents. -Continue to monitor renal function daily. 9. Hypertension, chronic, present on admission. Stable. -Continue quinapril 40 mg daily and furosemide 40 mg daily. Disposition: Patient will likely discharge in the next 1-2 [facility] for [facility].
[2019-09-09] MEDS: ALLOPURINOL 300 MG TABLET PO (19:33)
[2019-09-09] MEDS: HEPARIN 5,000 UNIT/ML VIAL 5000 UNIT SUBCUT (20:01)
[2019-09-09] MEDS: FUROSEMIDE 40 MG/4 ML VIAL IV (20:01)
[2019-09-09] MEDS: LATANOPROST 0.005% OPHTH 2.5 ML 1 DROPS EYE-BOTH (22:36)
[2019-09-10] VITALS (23 sets, daily range): BP systolic 100–131; BP diastolic 43–65; PULSE 54–70; RESP 13–30; TEMP 28.6–36.6; O2SAT 84–100
--- NOTE | 2019-09-10 | DI.US.S_ITS ---
PROCEDURE: US PERIPH VENOUS LOW EXTREM BI INDICATIONS: SOB TECHNIQUE: Real-time imaging, as well as color and pulse Doppler interrogation, were performed of the deep veins of both legs from the inguinal ligament to the popliteal fossa. COMPARISON: None. FINDINGS: Right: The common femoral, femoral and popliteal veins are normally compressible, and free of intraluminal thrombus. Color and pulse Doppler demonstrate normal phasic intravascular flow. There is normal augmentation response to distal compression maneuver. Left: The common femoral, femoral and popliteal veins are normally compressible, and free of intraluminal thrombus. Color and pulse Doppler demonstrate normal phasic intravascular flow. There is normal augmentation response to distal compression maneuver. IMPRESSION: No evidence of DVT in visualized bilateral lower extremity veins. Dictated by: David Machuca M.D. on 09/10/2019 at 15:22 Approved by: David Machuca M.D. on 09/10/2019 at 15:37
[2019-09-10 05:56] LABS: Add Manual Diff / Slide Review NO; Basophils Absolute Auto 100 /uL (0-100); Basophils Percent Auto 1.1 % (0-2); Eosinophils Absolute Auto 0 /uL (0-450); Eosinophils Percent Auto 0.7 % (2-4); Hematocrit 25.5 % (41-53); Hemoglobin 8.4 g/dL (13.5-17.5); Lymphocytes Absolute Auto 700 /uL (1100-4500); Mean Corpuscular Volume 100.2 fL (80-100); Monocytes Absolute Auto 400 /uL (0-900); Monocytes Percent Auto 5.9 % (3-14); Neutrophils Absolute Auto 5700 /uL (1500-7000); Neutrophils Percent Auto 82.3 % (50-75); Platelet Count 106 X10^3/uL (150-400); Red Blood Cell Count 2.55 X10^6/uL (4.5-5.9); Red Cell Distribution Width 21.5 % (11.6-14.8); White Blood Cell Count 6.9 X10^3/uL (4.5-11.0)
[2019-09-10 06:05] LABS: INR 1.5 (0.9-1.3); Prothrombin Time 17.5 SECONDS (10.1-12.7)
[2019-09-10 06:11] LABS: Alanine Aminotransferase 18 IU/L (<50); Albumin 3.4 g/dL (3.5-5.0); Albumin Globulin Ratio 0.9 (1.0-2.8); Alkaline Phosphatase 157 U/L (38-126); Aspartate Aminotransferase 27 IU/L (17-59); BUN Creatinine Ratio 38.7 (6-22); Bilirubin Total 0.8 mg/dL (0.2-1.3); Blood Urea Nitrogen 58 mg/dL (9-20); Calcium 9.6 mg/dL (8.4-10.2); Carbon Dioxide 36 mmol/L (22-32); Chloride 99 mmol/L (98-107); Estimated Glomerular Filt Rate 44.6 mL/min (>60); Globulin 3.8 g/dL (1.7-4.1); Glucose 90 mg/dL (80-110); HEMOLYSIS < 15 (0-50); Magnesium 2.1 mg/dL (1.6-2.3); Potassium 4.6 mmol/L (3.4-5.1); Sodium 141 mmol/L (137-145); Total Protein 7.2 g/dL (6.3-8.2)
--- NOTE | 2019-09-10 06:12 | DI.RAD.S_ITS ---
PROCEDURE: XR CHEST 1V INDICATIONS: shortness of breath TECHNIQUE: One view of the chest was acquired. COMPARISON: [facility], , XR CHEST 1V, 09/06/2019, 5:44. FINDINGS: Surgical changes and devices: None. Lungs and pleura: Persistent patchy interstitial prominence with bibasilar consolidations that are more pronounced on the left. Slight interval increase in conspicuity of lower lung opacities on today's study which may be due to slight differences in technique. Small bilateral pleural effusions. No pneumothorax. Mediastinum: The cardiomediastinal contours remain stable with enlargement of the cardiac silhouette. Bones and chest wall: No suspicious bony lesions. Overlying soft tissues appear unremarkable. IMPRESSION: 1. Findings compatible with pulmonary edema/CHF. 2. Slight interval increase in conspicuity of a basilar opacity/consolidations which may be related to differences in imaging technique. Findings may represent atelectasis and/or concurrent air space disease/pneumonia. Dictated by: Stephon Guerrero M.D. on 09/10/2019 at 8:15 Approved by: Stephon Guerrero M.D. on 09/10/2019 at 8:18
[2019-09-10 06:28] LABS: Anisocytosis 2+
--- NOTE | 2019-09-10 06:31 | PM.EVENT ---
Event Note Date Patient Seen: 09/10/19 Time Patient Seen: 06:31 Event Note: Was called bedside for acute shortness of breath. This an 84-year-old male patient with history of COPD CHF, atrial fibrillation, and recent GI bleed who developed a sudden onset of dyspnea with oxygen saturation dipping into the 60s with 1 word dyspnea. Patient has a moist/wet cough. He had an echo completed yesterday with a finding of an EF of 55-60% with notation of concentric left ventricular hypertrophy, right ventricular overload and right ventricular dilation with reduced function and severe TR with right ventricular systolic pressure approximately 66. Patient received 1 unit of blood yesterday with 20 mg of Lasix following completion of transfusion. The patient had been doing well until he was awakened for lab draw. Patient is slightly diaphoretic, he denies complaints of chest pain or palpitations telemetry reveals atrial fibrillation. Flash pulmonary edema secondary to decompensated heart failure. -stat chest x-ray was obtained confirming pulmonary edema. -Lasix 40 mg given IV with a blood pressure of 126/53 -oxygen was titrated up in the acute phase and will be titrated down to maintain saturations 88-92%.
[2019-09-10 06:40] LABS: TSH w/ Reflex to FT4 4.09 uIU/mL (0.47-4.68)
[2019-09-10] MEDS: FUROSEMIDE 40 MG/4 ML VIAL IV ×3 (06:40→19:44)
--- NOTE | 2019-09-10 08:23 | PC.NURSE ---
Addendum entered by Kim Vora R.N. 09/10/19 09:39: Patient transferred to ICU, report given, at bedside. Original Note: Patient reports he does not feel any better, is still short of breath. LS diminished in the bases, RR 26, using accessory muslces and coughing up frothy sputum. Denies chest pain. Dr Lovett made aware and in to assess. RT called to assess.
[2019-09-10 09:23] LABS: Cholesterol 121 mg/dL (140-199); HDL Cholesterol 47 mg/dL (40-60); LDL Cholesterol Calculated 67 mg/dL (<100); Triglycerides 33 mg/dL (35-150)
[2019-09-10 09:25] LABS: Creatine Kinase 25 U/L (55-170)
--- NOTE | 2019-09-10 11:40 | PT-IP ANOTE ---
Pt on hold for the am per nurse secondary to just placed patient on bypap and physician instructed not if any interruptions to assist with breathing difficulties. PT will return in afternoon.
--- NOTE | 2019-09-10 11:51 | PC.NURSE ---
PT BROUGHT DOWN FROM ACUTE CARE WITH NEED FOR BIPAP- PLACED ON BIPAP AT 35% PRESSURES 16/5 AND TOLERATING WELL- HE IS BRADYCARDIA AT TIMES NOTED TO BE AT 48BPM FOR FEW SECONDS- FREQ PVC'S / IDIOPATHIC VENTRICULAR - DENIES PAIN - AT BEDSIDE
--- NOTE | 2019-09-10 13:40 | PM.PN.1 ---
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 Interval history: The patient became tachypneic and dyspneic overnight with flash pulmonary edema possibly due to blood transfusion versus accelerated idioventricular rhythm. The patient received Lasix 40 mg IV x1 with minor improvement. The patient is resting in bed. He is in no acute distress but does appear dyspneic and endorses shortness of breath. He endorses mild chest discomfort/pressure. Repeated troponin which was negative. Repeat EKG demonstrated atrial fibrillation with controlled rate of 71. Requested respiratory therapy to perform ABG which demonstrated compensated hypoxemia and hypercarbia pH 7.36, pCO2 61.5, PO2 54, HC03 34.9 with SpO2 85% on FiO2 44%. Transferred the patient downstairs to the intensive care unit for BiPAP support. Plan to discuss the patient with cardiology and request for consult due to electrical conduction abnormality and decompensated cor pulmonale. The patient is voiding and eliminating without difficulty. Exam Vital Signs (past 8 hours): - 09/10/19 06:10 09/10/19 07:55 09/10/19 09:00 Temperature 97.2 F L Pulse Rate 70 64 Respiratory Rate 20 18 Blood Pressure 116/59 L 112/61 Pulse Oximetry 84 L 93 100 09/10/19 09:27 09/10/19 09:46 09/10/19 10:00 Temperature Pulse Rate 59 L Respiratory Rate 20 Blood Pressure 114/53 L 100/44 L Pulse Oximetry 90 L 99 09/10/19 11:39 09/10/19 12:00 Temperature 96.5 F L Pulse Rate 60 Respiratory Rate 15 Blood Pressure 115/43 L 129/65 Pulse Oximetry 99 Fraction of Inspired Oxygen 35 Oxygen Delivery Method Nasal Cannula Oxygen Flow Rate 6 Narrative Exam Narrative: General: Elderly gentleman lying in bed and in no acute distress, well-developed, well-nourished, somnolent but arousable and appropriately interactive. HEENT: Normocephalic, atraumatic. External ears without defect. Pupils equal, round, and reactive to light. Anicteric sclerae, moist conjunctivae, and no lid lag. Oropharynx free of erythema and cobble stoning with moist mucosa. Neck: Supple with full range of motion. Mild jugular venous distension. No lymphadenopathy or thyromegaly. Cardiovascular: Regular rate and rhythm without murmurs, rubs, or gallops appreciated Pulmonary: Diminished throughout with diffuse crackles. No wheeze or rhonchi. Normal respiratory effort with no use of accessory muscles. Abdomen: Soft, bowel sounds present, nontender, nondistended. No hepatosplenomegaly or masses appreciated. Extremities: No clubbing or cyanosis. Stasis dermatitis of bilateral lower extremities. Dependent edema to hips bilaterally. Wound over right knee covered with dressing C/D/I. Skin: Normal temperature, turgor, and texture; no rash, ulcers, or subcutaneous nodules appreciated. Neurological: Cranial nerves grossly intact. Psychiatric: Normal mood and affect. Alert and oriented to person, place, and time. Somnolent but arousable. Objective Labs Result Diagrams: 09/10/19 05:38 09/10/19 05:38 Labs: Laboratory Results - last 24 hr 09/06/19 09/09/19 09/10/19 06:12 15:50 05:38 WBC 6.9 RBC 2.55 L Hgb 8.4 L Hct 25.5 L MCV 100.2 H MCH 33.0 MCHC 33.0 RDW 21.5 H Plt Count 106 L Neut % (Auto) 82.3 H Lymph % (Auto) 10.0 L [place] % (Auto) 5.9 Eos % (Auto) 0.7 L Baso % (Auto) 1.1 Neut # (Auto) 5700 Lymph # (Auto) 700 L [place] # (Auto) 400 Eos # (Auto) 0 Baso # (Auto) 100 RBC Morphology See below Anisocytosis 2+ H PT INR Sodium Potassium Chloride Carbon Dioxide BUN Creatinine Estimated GFR BUN/Creatinine Ratio Glucose Calcium Magnesium Total Bilirubin AST ALT Alkaline Phosphatase Total Creatine Kinase CK-MB (CK-2) CK-MB (CK-2) Rel Index Troponin I Total Protein Albumin Globulin Albumin/Globulin Ratio Triglycerides Cholesterol LDL Cholesterol, Calc HDL Cholesterol TSH Blood Type O Positive Antibody Screen Negative Crossmatch See Detail See Detail 09/10/19 09/10/19 09/10/19 05:38 05:38 05:38 WBC RBC Hgb Hct MCV MCH MCHC RDW Plt Count Neut % (Auto) Lymph % (Auto) [place] % (Auto) Eos % (Auto) Baso % (Auto) Neut # (Auto) Lymph # (Auto) [place] # (Auto) Eos # (Auto) Baso # (Auto) RBC Morphology Anisocytosis PT 17.5 H INR 1.5 H Sodium 141 Potassium 4.6 Chloride 99 Carbon Dioxide 36 H BUN 58 H Creatinine 1.50 H Estimated GFR 44.6 L BUN/Creatinine Ratio 38.7 H Glucose 90 Calcium 9.6 Magnesium 2.1 Total Bilirubin 0.8 AST 27 ALT 18 Alkaline Phosphatase 157 H Total Creatine Kinase CK-MB (CK-2) CK-MB (CK-2) Rel Index Troponin I Total Protein 7.2 Albumin 3.4 L Globulin 3.8 Albumin/Globulin Ratio 0.9 L Triglycerides Cholesterol LDL Cholesterol, Calc HDL Cholesterol TSH 4.09 Blood Type Antibody Screen Crossmatch 09/10/19 05:38 WBC RBC Hgb Hct MCV MCH MCHC RDW Plt Count Neut % (Auto) Lymph % (Auto) [place] % (Auto) Eos % (Auto) Baso % (Auto) Neut # (Auto) Lymph # (Auto) [place] # (Auto) Eos # (Auto) Baso # (Auto) RBC Morphology Anisocytosis PT INR Sodium Potassium Chloride Carbon Dioxide BUN Creatinine Estimated GFR BUN/Creatinine Ratio Glucose Calcium Magnesium Total Bilirubin AST ALT Alkaline Phosphatase Total Creatine Kinase 25 L CK-MB (CK-2) TNP CK-MB (CK-2) Rel Index TNP Troponin I 0.030 Total Protein Albumin Globulin Albumin/Globulin Ratio Triglycerides 33 L Cholesterol 121 L LDL Cholesterol, Calc 67 HDL Cholesterol 47 TSH Blood Type Antibody Screen Crossmatch Assessment & Plan Assessment & Plan narrative: Mehul Reeves is a 84-year-old male with a past medical history significant for hypertension, atrial fibrillation on warfarin, gout, and 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 1. Acute decompensated cor pulmonale, secondary to pulmonary arterial hypertension, present on admission. Active. -Patient has dependent edema up to hips bilaterally and developed flash pulmonary edema overnight 09/10 likely due to 1 U PRBC in setting of fluid overload already. -Echocardiogram demonstrated mild concentric left ventricular hypertrophy with ejection fraction 55-60%, flattened septum is consistent with RV pressure/volume overload, moderately dilated right ventricle with moderately reduced right ventricular systolic function, severe biatrial enlargement, mild aortic stenosis, mild mitral annular calcification, mild to moderate mitral regurgitation, severe tricuspid regurgitation, RVSP 66 mmHg, severe pulmonary hypertension. -Continue quinapril 40 mg daily. -Continue furosemide 40 mg IV 3 times daily today for goal of 2-3 L diuresis daily and will reassess diuretic dose daily. -Continue to monitor strict I&O and daily weights. Net -500 mL. -Continue fluid restriction of 1.5 L. -Continue heart healthy and low-sodium < 2g diet. -Continue to monitor electrolytes closely in setting of diuresis and replete as necessary. Goal K+> 4.0 and Mg+> 2.0. -Ordered bilateral venous Doppler ultrasound to rule out DVT, pending. -Consulted Cardiology, Dr. Chandler, who will plan to see the patient later today. We appreciate her time and care of the patient. 2. Acute on chronic hypoxemic respiratory failure, secondary to decompensated cor pulmonale, present on admission. Stable. -Patient is on 2.5 L continuous supplemental oxygen at home. -Patient developed flash pulmonary edema overnight on 09/10 likely due to 1 U PRBC in setting of fluid overload already. -Consulted respiratory therapy for evaluation and treatment. ABG performed demonstrated compensated hypoxemia and hypercarbia pH 7.36, pCO2 61.5, PO2 54, HC03 34.9 with SpO2 85% on FiO2 44%. Transfered patient to ICU for BiPAP support. Continue to monitor ABG periodically to adjust BiPAP settings. 3. Chronic atrial fibrillation with intermittent idioventricular rhythm, present on admission. Stable. -Initially held anticoagulation due to GI bleeding. -[id number] score is 5 placing him at moderate to high risk of VTE. -Discontinued warfarin as patient has had recurrent unexplainable elevation of INR. Started Eliquis 2.5 mg twice daily (due to age and creatinine). -Continue to monitor electrolytes closely and setting of diuresis and replete as necessary. Goal K+> 4.0 and Mg+> 2.0. -Ordered TSH with reflex, pending. 4. Acute GI bleed with acute blood loss anemia, secondary to supratherapeutic INR, present on admission. Resolved. -Patient appears to have GI bleed process related to elevated INR. -Initial hemoglobin 6.9. Received 2 units PRBC on 09/06. Reversed elevated INR with Vitamin K X 2. Received additional 1 unit PRBC for hemoglobin 7.8 with not quite expected compensation with hemoglobin now 8.4. Transfusion goal hemoglobin < 8.0. -Consulted general surgery, Dr. Wei, who does not plan on performing endoscopy as patient is high risk and would only perform if patient rebleeds. -Continue Protonix 40 mg twice daily. 5. Supratherapeutic INR, present on admission. Resolved. -Unclear cause of recent Coumadin toxicity/elevated INR. No recent medication changes or additions. No recent antibiotics. -Initial INR 8.3. Received vitamin K x2. INR now 1.4. -Liver US unremarkable. -Discontinued warfarin as patient has had recurrent unexplainable elevation of INR. -Started Eliquis 2.5 mg twice daily. 6. COPD, present on admission. Stable. -Does not represent COPD exacerbation. -Continue Albuterol/Duoneb as needed. 7. 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 Presumed stable. -Continue home supplemental oxygen with 2.5 L continuously via nasal cannula. -Continue outpatient follow-up with hand tacker, Dr. Talamantes, for possible Mesothelioma. 8. Acute kidney injury, on chronic kidney disease stage III, present on admission. Acute kidney injury resolved. -Baseline creatinine unknown. Initial creatinine 2.6. Creatinine trended down to 1.5-1.6 which is likely patient's baseline. -Avoid nephrotoxic agents. -Continue to monitor renal function daily. 9. Hypertension, chronic, present on admission. Stable. -Continue quinapril 40 mg daily and diuresis as above. Disposition: Patient likely to be hospitalized for several more days due to decompensated cor pulmonale and need for aggressive diuresis. Patient will discharge to custodial facility for rehabilitation once euvolemic.
--- NOTE | 2019-09-10 13:54 | PT-IP ANOTE ---
Checked with nursing and pt is not appropriate for PT today. will f/u tomorrow.
[2019-09-10] MEDS: APIXABAN 5 MG TABLET 2.5 MG PO ×2 (14:17→21:19)
[2019-09-10] MEDS: CYANOCOBALAMIN (VITAMIN B-12) 100 MCG TABLET PO (14:19)
[2019-09-10] MEDS: QUINAPRIL 20 MG TABLET 40 MG PO (14:19)
[2019-09-10 14:22] LABS: pH ABG 7.41 (7.35-7.45)
[2019-09-10 14:23] LABS: PCO2 ABG 63.5 mmHg (35-45); PO2 ABG 72 mmHg (80-100)
[2019-09-10 14:24] LABS: HCO3 ABG 40 mmol/L (22-26); Oxygen Saturation ABG 94 % (95-100); TCO2 ABG 42 mmol/L (21-31)
[2019-09-10 14:29] LABS: pH ABG 7.36 (7.35-7.45)
[2019-09-10 14:30] LABS: HCO3 ABG 35 mmol/L (22-26); Oxygen Saturation ABG 85 % (95-100); PO2 ABG 54 mmHg (80-100); TCO2 ABG 37 mmol/L (21-31)
[2019-09-10 14:57] LABS: Add Manual Diff / Slide Review NO; Basophils Absolute Auto 0 /uL (0-100); Basophils Percent Auto 0.6 % (0-2); Eosinophils Absolute Auto 0 /uL (0-450); Eosinophils Percent Auto 0.5 % (2-4); Hematocrit 25.6 % (41-53); Hemoglobin 8.4 g/dL (13.5-17.5); Lymphocytes Absolute Auto 500 /uL (1100-4500); Lymphocytes Percent Auto 6.8 % (25-40); Mean Corpuscular HGB Conc 32.9 % (30-36); Mean Corpuscular Hemoglobin 32.9 PG (26-34); Monocytes Absolute Auto 400 /uL (0-900); Neutrophils Absolute Auto 6700 /uL (1500-7000); Neutrophils Percent Auto 87.1 % (50-75); Platelet Count 112 X10^3/uL (150-400); Red Blood Cell Count 2.56 X10^6/uL (4.5-5.9); Red Cell Distribution Width 21.6 % (11.6-14.8); White Blood Cell Count 7.7 X10^3/uL (4.5-11.0)
[2019-09-10 15:08] LABS: BUN Creatinine Ratio 36.7 (6-22); Blood Urea Nitrogen 55 mg/dL (9-20); Calcium 9.6 mg/dL (8.4-10.2); Carbon Dioxide 38 mmol/L (22-32); Chloride 96 mmol/L (98-107); Estimated Glomerular Filt Rate 44.6 mL/min (>60); Glucose 83 mg/dL (80-110); HEMOLYSIS < 15 (0-50); Potassium 4.4 mmol/L (3.4-5.1); Sodium 138 mmol/L (137-145)
[2019-09-10 15:12] LABS: PCO2 ABG 61.5 mmHg (35-45)
[2019-09-10 15:28] LABS: Macrocytosis 1+; Poikilocytosis 1+; Target Cells 1+
[2019-09-10 15:29] LABS: Anisocytosis 2+
[2019-09-10] MEDS: ALLOPURINOL 300 MG TABLET PO (18:21)
[2019-09-10] MEDS: LIDOCAINE JELLY 2% 5 ML 1 APPLIC TOP (19:15)
[2019-09-10 20:11] LABS: HCO3 ABG 37 mmol/L (22-26); PCO2 ABG 56.7 mmHg (35-45); PO2 ABG 75 mmHg (80-100); TCO2 ABG 39 mmol/L (21-31); pH ABG 7.42 (7.35-7.45)
[2019-09-10 20:12] LABS: Oxygen Saturation ABG 95 % (95-100)
[2019-09-10] MEDS: PANTOPRAZOLE 40 MG TABLET PO (21:19)
[2019-09-10] MEDS: LATANOPROST 0.005% OPHTH 2.5 ML 1 DROPS EYE-BOTH (21:19)
[2019-09-11] VITALS (22 sets, daily range): BP systolic 96–121; BP diastolic 33–54; PULSE 52–93; RESP 10–30; TEMP 30.8–36.9; O2SAT 92–100
[2019-09-11 00:44] LABS: Magnesium 1.9 mg/dL (1.6-2.3)
[2019-09-11 00:45] LABS: BUN Creatinine Ratio 37.1 (6-22); Blood Urea Nitrogen 52 mg/dL (9-20); Calcium 9.3 mg/dL (8.4-10.2); Chloride 95 mmol/L (98-107); Estimated Glomerular Filt Rate 48.3 mL/min (>60); Glucose 88 mg/dL (80-110); HEMOLYSIS < 15 (0-50); Potassium 4.1 mmol/L (3.4-5.1); Sodium 137 mmol/L (137-145)
[2019-09-11 00:53] LABS: Carbon Dioxide 39 mmol/L (22-32)
[2019-09-11] MEDS: MELATONIN 3 MG TABLET PO ×2 (02:14→21:08)
[2019-09-11 04:55] LABS: Alanine Aminotransferase 17 IU/L (<50); Albumin 3.2 g/dL (3.5-5.0); Albumin Globulin Ratio 0.9 (1.0-2.8); Alkaline Phosphatase 144 U/L (38-126); Aspartate Aminotransferase 26 IU/L (17-59); BUN Creatinine Ratio 37.1 (6-22); Bilirubin Total 0.8 mg/dL (0.2-1.3); Blood Urea Nitrogen 52 mg/dL (9-20); Calcium 9.2 mg/dL (8.4-10.2); Chloride 94 mmol/L (98-107); Estimated Glomerular Filt Rate 48.3 mL/min (>60); Globulin 3.6 g/dL (1.7-4.1); Glucose 97 mg/dL (80-110); HEMOLYSIS < 15 (0-50); Magnesium 1.9 mg/dL (1.6-2.3); Sodium 138 mmol/L (137-145); Total Protein 6.8 g/dL (6.3-8.2)
[2019-09-11 04:59] LABS: Add Manual Diff / Slide Review NO; Basophils Absolute Auto 0 /uL (0-100); Basophils Percent Auto 0.4 % (0-2); Eosinophils Absolute Auto 100 /uL (0-450); Hemoglobin 7.9 g/dL (13.5-17.5); Lymphocytes Absolute Auto 400 /uL (1100-4500); Lymphocytes Percent Auto 8.1 % (25-40); Mean Corpuscular HGB Conc 32.7 % (30-36); Mean Corpuscular Hemoglobin 32.7 PG (26-34); Mean Corpuscular Volume 99.9 fL (80-100); Monocytes Absolute Auto 400 /uL (0-900); Monocytes Percent Auto 8.2 % (3-14); Neutrophils Absolute Auto 4500 /uL (1500-7000); Neutrophils Percent Auto 82.3 % (50-75); Platelet Count 102 X10^3/uL (150-400); Red Blood Cell Count 2.42 X10^6/uL (4.5-5.9); Red Cell Distribution Width 21.3 % (11.6-14.8); White Blood Cell Count 5.5 X10^3/uL (4.5-11.0)
[2019-09-11 05:01] LABS: Carbon Dioxide 39 mmol/L (22-32)
[2019-09-11 05:04] LABS: Hematocrit 24.2 % (41-53)
[2019-09-11 05:36] LABS: Anisocytosis 2+
[2019-09-11 05:37] LABS: Macrocytosis 1+; Target Cells 1+
[2019-09-11] MEDS: PANTOPRAZOLE 40 MG TABLET PO ×2 (06:42→21:10)
--- NOTE | 2019-09-11 07:11 | PC.NURSE ---
Cloud Systems Architect Note-Patient dozed throughout night with Bi-pap intermittently, otherwise on 2L, SpO2 >94%. Breath sounds diminished, no rhonchi, denies dyspnea. A-fib SVR/CVR, no ectopi. VSS. Alevyn drsg to posterior Rt lower leg changed in am for moserate bloody drainage.
--- NOTE | 2019-09-11 08:08 | PT.IPTN ---
Current Diagnoses Anemia, unspecified (09/06/19) Melena (09/06/19) Physical Therapy Treatment Note M2 PT-IP Current Condition Start: 09/07/19 15:47 Freq: NEEDED Status: Active Protocol: Document 09/07/19 15:15 MB (Rec: 09/07/19 16:05 MB [id number]) Physical Therapy Current Condition Current Condition Evaluation Date 09/07/19 Treatment Diagnosis Weakness, increased HR, SOB M3 PT-IP Subjective Start: 09/07/19 15:47 Freq: NEEDED Status: Active Protocol: Document 09/11/19 07:45 SP (Rec: 09/11/19 09:34 SP [email or web address]) Subjective Physical Therapy Visit Type Type Treatment Note Visit Start Time 07:45 Visit Stop Time 08:08 Total Visit Minutes 23 Physical Therapy Visit Comments Patient Comments Pt was willing to work with PT this am. Patient Goals Get up into the chair. Therapy Pain Assessment Pain Present Pain Present Denied Pain M4 PT-IP Mobility and Gait Start: 09/07/19 15:47 Freq: NEEDED Status: Active Protocol: Document 09/11/19 07:45 SP (Rec: 09/11/19 09:34 SP [email or web address]) PT-Bed Mobility Assessment Supine to Sit Supine to Sit Moderate Assistance,1 Person Assistance,Head of Bed Elevated,Bedrails Scooting Scooting to Edge of Bed Minimal Assistance PT-Transfer Assessment Sit to and From Stand Sit to and from Stand Minimal Assistance,Moderate Assistance,1 Person Assistance ,Use of Upper Extremities Equipment Transfer Assistive Device Gait Belt,Front Wheeled Walker Transfers Transfer Destination Chair Transfer Technique pt ambulated with FWW Transfer Ability Level of Assist Contact Guard Assistance Comments Mobility Comments Pt was laying in bed when arrived, present. Pt completed supine to sitting with HOB elevated Mod support for trunk transitioning to sitting and Min to scoot to EOB with cuing for UE WB on bed to assist to sitting. Pt was able to complete sit to stand Min A from the bed and Mod from BSC. Pt was able transfer step pivot to BSC using FWW for support CGA wth cuing for proper hand placement to push up to stand and reaching back with slow descent for safety. Pts vitals once sitting in BSC: BP 115/ 33, HR 68 bpm, O2 sat 96% on 1L O2 at rest after transfer. O2 sat decrease to 84-88% with supplimental O2 during mobility but recovered within 1 min cues for proper breathing techniques. Pt required recovery time between positions secondary to decreased activity tolerance I'm tired. Gait Assessment Gait Gait Assistance Required: Contact Guard Assist Distance (Feet) 5 Able to Maintain Weight Bearing Status Yes During Gait Assistive Devices Assistive Device Gait Belt,Front Wheeled Walker Gait Deviations General Gait Pattern Decreased Stride Length, Decreased Feet Clearance, Flexed Trunk,Lateral Trunk Lean,Narrow Based Gait Factors Limiting Gait Function Factors Limiting Gait Function Decreased Activity Tolerance, Decreased Strength,Poor Balance,Poor Safety Awareness, Respiratory Distress Comments Gait Comments Pt had decreased activity tolerance, was able to complete ambulating to BSC using FWW CGA with support provided for tubing management . Stair Climbing Assessment Evaluation Level of Assist On Stairs Moderate Assistance,1 Person Assistance Devices Stair Climbing Assistive Devices Left Railing Technique/Endurance Stair Climbing Direction Ascend and Descend Stair Climbing Technique Step to Step Number of Steps Climbed 1 Stair Climbing Set # Repetitions (reps) 1 Comments Stair Climbing Comments Pt was able to complete 1 step management with MACHINIST OUTSIDE on R and L rail (stated has wall on L for support at home uses) Mod A x1 with cuing for patterning with no LOB. Pt was slighly SOB and O2 sat decreased to 84 % but recovered mid 90s within 30 sec reminders pursed lip breathing. PT-Balance Assessment Sitting Balance and Reactions Static Sitting Balance Ability Good Dynamic Sitting Balance Ability Fair Standing Balance and Reactions Static Standing Balance Ability Fair Dynamic Standing Balance Ability Fair Device Used FWW M5 PT-IP Objective Assessments Start: 09/07/19 15:47 Freq: NEEDED Status: Active Protocol: Document 09/07/19 15:15 MB (Rec: 09/07/19 16:05 MB [id number]) Orientation Orientation/Cognition Level of Alertness Alert Orientation Name,Age,Birthday,Month,Date, Year,Day of Week,Place Language Function Ability Hard of Hearing Safety Awareness Decreased Safety Awareness Comments Decreased insight to safety situation at home and decreased receptiveness to education Gross Range of Motion Upper Extremity ROM Assessment Within Functional Limits Impairments Pt with bruising and lines Lower Extremity ROM Assessment Bilaterally Impaired Impairments Decreased hip flexion, knee extension and ankle ROM B in sitting, greater on the right LE Strength Upper Extremity Strength Assessment Bilaterally Impaired Shoulder B 4/5 flexion and abduction Elbow Right NT d/t IV; left extension 4/5 Lower Extremity Strength Assessment Bilaterally Impaired Hip B 3-/5 flexion in sitting Knee Does not follow cues, cannot reach full knee extension in sitting Ankle Does not follow cues Comments Strength Comments RLE with dressings, B LEs with areas of red bruising, pt on blood thinner Sensation Assessment Comments Sensation Comments Deferred d/t decreased cue following with MMT Other Assessments Other Other Assessments Pt is an 84 y/o male presenting with weakness, SOB and found to have mild cardiomegaly, bibasilar infiltrate, PNA and CHF pattern. He presented with low HGB on adm and after transfusion, presents with improved HGB. Pt wears 2.5L O2 at home and has a 50' O2 line that I'm worried he is going to trip over per . She reports he refuses to use an AD and so she offers for him to put his hands on her shoulders for ambulation in the house. He is tachy with short gait this date wearing 1 .5L O2 in the ICU and his sats are in the low 90s. HR increases to the 120s and then lowers to the 60s upon returning to supine. states that his medical status is one reason he does not like to walk too far at home. He presents with poor safety awareness, generalized weakness, postural changes, poor inhalation through his nose, skin integrity issues and poor safety awareness. His legs are edematous. He will benefit from acute and post- acute PT to improve strength, balance, transfers and gait. PT recommends SNF at d/c. M6 PT-IP Treatment Start: 09/07/19 15:47 Freq: NEEDED Status: Active Protocol: Document 09/11/19 07:45 SP (Rec: 09/11/19 09:34 SP [email or web address]) Physical Therapy Treatment Exercises Exercises Ankle Pumps,Seated Knee Flexion/Extension Education Education Provided Precautions,Safety Other Treatments Other Treatment Performed Ther ex included seated heel/ toe raises, LAQ, seated march with SpO2 maintained low- mid 90s with not to much effort. M7 PT-IP Assessment and Plan Start: 09/07/19 15:47 Freq: NEEDED Status: Active Protocol: Document 09/11/19 07:45 SP (Rec: 09/11/19 09:34 SP [email or web address]) PT Summary Assessment and Plan Potential Rehabilitation Potential Good Status of Condition at Evaluation Evolving Summary Impairments Strength,Balance,Bed Mobility, Transfers,Gait,Activity Tolerance Progress Towards Goals Slow Progress due to Medical Issues Assessment Summary Pt continues to desat on supplemental O2. He reported respiratory effort during bed mobility with cuing required for stopped rest breathing recovery quickly. Pt can tolerate therapy and remains a good candidate for SNF rehab when medically stable in order to increase strength and increase independence with functional mobility. See mobility comments. Recommend future treatments distance with ambulation to improve strength and mobility within tolerance and stable vitals. Goals Bed Mobility Goal Independent Transfer Goal Independent Gait Goal Standby Assistance Gait Distance 100 Other Goals Pt will perform 5 reps sit to stand without UE support in less than 13 sec by d/c. Pt will perform sitting EOB exercises for 5' without LOB by d/c. Pt was able to ascend and descend 1 step with rail and MACHINIST OUTSIDE. Days to Meet Goals 10 Frequency of Treatment Frequency Of Treatment Once a Day Treatment Plan Physical Therapy Treatment Plan Bed Mobility Training,Transfer Training,Gait Training, Therapeutic Exercise,Balance Retraining,Neuromuscular Re-ed Recommendations To Nursing Amount of Assist Needed 2 Person Assist Discharge Recommendations PT Discharge Recommendations SNF Rehab
--- NOTE | 2019-09-11 08:23 | PC.NURSE ---
Addendum entered by Cheryl Muniz R.N. 09/11/19 10:57: PT SAT UP TO CHAIR UNTIL 1030 WHEN HE USED BSC FOR SMALL BM WHICH WAS GUAIAC + AND THEN RETURNED TO BED AND PLACED ON BIPAP- AT BEDSIDE Original Note: PT ASSISTED TO CHAIR BY PHYSICAL THERAPY- HE DID WELL BUT BECAME DYSPNEIC WITH ANY EXERTION- RECOVERED QUICKLY ON 2L NC AFTER SLEEPING MOST OF NIGHT ON BIPAP, EATING AM MEAL AT PRESENT- IN NEED OF BM ASKING FOR PRUNES
[2019-09-11] MEDS: APIXABAN 5 MG TABLET 2.5 MG PO ×2 (08:51→21:08)
[2019-09-11] MEDS: QUINAPRIL 20 MG TABLET 40 MG PO (08:51)
[2019-09-11] MEDS: CYANOCOBALAMIN (VITAMIN B-12) 100 MCG TABLET PO (08:51)
[2019-09-11] MEDS: DOCUSATE 100 MG CAPSULE PO (08:56)
[2019-09-11] MEDS: SODIUM CHLORIDE 0.9% FLUSH 10 ML IV ×2 (09:10→21:10)
[2019-09-11] MEDS: FUROSEMIDE 40 MG/4 ML VIAL IV ×2 (09:15→15:50)
--- NOTE | 2019-09-11 12:07 | P.PN_ITS ---
Subjective Subjective Date Patient Seen: 09/11/19 Time Patient Seen: 13:46 Interval history: Mehul Reeves is a 84 year old male with a history of chronic atrial fibrillation on warfarin, hypertension, pulmonary hypertension, restrictive and obstructive lung disease, abesotosis exposure. He was initially admitted with acute lower GI bleed in the setting of a INR of 8.3 and a hemoglobin of 6.9. Interval history: He was initially admitted with complaints of shortness of breath. On admission his INR was 8.3 with a Hgb 6.9 and Hct 20.6. His EKG showed atrial fibrillation with a controlled ventricular rate.. He received 3units of PRBs. Developed pulmonary edema. He received Lasix 40 mg IV Q8. He was 96.6 kg on admission but currently he is 92 kg. Chest xray on admission revealed mild cardiomegaly with mild CHF pattern. An echocardiogram on 09/08/2019 indicated mild concentric left ventricular hypertropy with EF55-60%, flattened septum consistent with RV pressure/volume overload, moderately dilated RV with modertaely reduced RV systolic function, mild to moderate MR, severe TR, RV systolic pressure at least 66 mmHg and RA pressure 15 mm Hg and severe pulmonary hypertension. His troponin were within normal limits. BNP was 462. He was in acute renal failure on admission with creatininine 2.6. His CPK was normal. Today the patient is resting in bed. He is in no acute distress but remains dyspneic with talking. He is hemodynamically stable. He is on 2L/NC. He denies any chest discomfort. Repeat EKG shows atrial fibrillation with a controlled ventricular rate. He is currently 92 kg. His renal function is improving with creatinine 1.4. His BNP is 1240. Hgb is 7.9 and Hct 24.2 Exam Vital Signs (past 8 hours): - 09/11/19 06:24 09/11/19 06:33 09/11/19 08:00 Temperature 97.9 F 98.5 F Pulse Rate 58 L 65 Respiratory Rate 10 L 24 Blood Pressure 108/54 L 108/54 L 115/33 L Pulse Oximetry 99 96 09/11/19 08:29 09/11/19 10:00 Temperature Pulse Rate 63 Respiratory Rate 28 H Blood Pressure Pulse Oximetry 94 92 Fraction of Inspired Oxygen 0.30 Oxygen Delivery Method Room Air Oxygen Flow Rate 2 Narrative Exam Narrative: 84 year old elderly male with a hx of atrial fibrillation with controlled ventricular rate, right sided heart failure, COPD and a GI bleed. Const General: cooperative, comfortable and ill appearing Orientation: alert, awake and oriented x3 HENMT Head: atraumatic Nose: nasal mucous membranes and turbinates normal Mouth: moist mucous membranes Eyes EOM: EOM intact bilaterally Other: No obvious jaundice Neck Other: + JVD Chest Other: No chest wall tenderness Resp Effort & Inspection: prolonged expiratory phase and other (short of breath with speaking but no acute distress) Auscultation: diminished lung sounds (bases bilaterally) and wheezes Cardio Rhythm: abnormal rhythm irregularly irregular Other: S1 variable, P2 loud, no s3 or s4, Grade 2/6 ESM diffuse GI Palpation: soft and no hepatosplenomegaly Auscultation: normal bowel sounds Skin General: ecchymosis (of upper extremities bilaterally; chronic venous statsis changes LE bilat) Neuro General: alert, awake and oriented x3 Cognition: normal cognition Speech: speech normal Extrem Left lower extremity: ankle Details: pitting edema Details: non-pitting Other: No evidence of critical limb ischemia Psych Appearance: grossly normal Speech and Movement: speech and movement normal Affect: normal affect Attitude: cooperative Thought Process: normal Thought Content: normal Judgment: judgment good Objective Labs Result Diagrams: 09/11/19 04:33 09/11/19 04:33 Labs: Laboratory Results - last 24 hr 09/10/19 09/10/19 09/10/19 08:33 13:54 14:47 WBC 7.7 RBC 2.56 L Hgb 8.4 L Hct 25.6 L MCV 100.0 MCH 32.9 MCHC 32.9 RDW 21.6 H Plt Count 112 L Neut % (Auto) 87.1 H Lymph % (Auto) 6.8 L [place] % (Auto) 5.0 Eos % (Auto) 0.5 L Baso % (Auto) 0.6 Neut # (Auto) 6700 Lymph # (Auto) 500 L [place] # (Auto) 400 Eos # (Auto) 0 Baso # (Auto) 0 RBC Morphology See below Poikilocytosis 1+ H Anisocytosis 2+ H Macrocytosis 1+ H Target Cells 1+ H ABG pH 7.36 7.41 ABG pCO2 61.5 H* 63.5 H* ABG pO2 54 L 72 L ABG HCO3 35 H 40 H ABG Total CO2 37 H 42 H ABG O2 Saturation 85 L 94 L ABG Base Excess 9.0 H 15.0 H FiO2 0.30 0.30 Sodium Potassium Chloride Carbon Dioxide BUN Creatinine Estimated GFR BUN/Creatinine Ratio Glucose Calcium Magnesium Total Bilirubin AST ALT Alkaline Phosphatase Total Protein Albumin Globulin Albumin/Globulin Ratio 09/10/19 09/10/19 09/11/19 14:47 19:31 00:19 WBC RBC Hgb Hct MCV MCH MCHC RDW Plt Count Neut % (Auto) Lymph % (Auto) [place] % (Auto) Eos % (Auto) Baso % (Auto) Neut # (Auto) Lymph # (Auto) [place] # (Auto) Eos # (Auto) Baso # (Auto) RBC Morphology Poikilocytosis Anisocytosis Macrocytosis Target Cells ABG pH 7.42 ABG pCO2 56.7 H ABG pO2 75 L ABG HCO3 37 H ABG Total CO2 39 H ABG O2 Saturation 95 ABG Base Excess 12.0 H FiO2 0.30 Sodium 138 137 Potassium 4.4 4.1 Chloride 96 L 95 L Carbon Dioxide 38 H 39 H BUN 55 H 52 H Creatinine 1.50 H 1.40 H Estimated GFR 44.6 L 48.3 L BUN/Creatinine Ratio 36.7 H 37.1 H Glucose 83 88 Calcium 9.6 9.3 Magnesium 2.0 Total Bilirubin AST ALT Alkaline Phosphatase Total Protein Albumin Globulin Albumin/Globulin Ratio 09/11/19 09/11/19 09/11/19 00:19 04:33 04:33 WBC 5.5 RBC 2.42 L Hgb 7.9 L Hct 24.2 L MCV 99.9 MCH 32.7 MCHC 32.7 RDW 21.3 H Plt Count 102 L Neut % (Auto) 82.3 H Lymph % (Auto) 8.1 L [place] % (Auto) 8.2 Eos % (Auto) 1.0 L Baso % (Auto) 0.4 Neut # (Auto) 4500 Lymph # (Auto) 400 L [place] # (Auto) 400 Eos # (Auto) 100 Baso # (Auto) 0 RBC Morphology See below Poikilocytosis Anisocytosis 2+ H Macrocytosis 1+ H Target Cells 1+ H ABG pH ABG pCO2 ABG pO2 ABG HCO3 ABG Total CO2 ABG O2 Saturation ABG Base Excess FiO2 Sodium 138 Potassium 4.0 Chloride 94 L Carbon Dioxide 39 H BUN 52 H Creatinine 1.40 H Estimated GFR 48.3 L BUN/Creatinine Ratio 37.1 H Glucose 97 Calcium 9.2 Magnesium 1.9 1.9 Total Bilirubin 0.8 AST 26 ALT 17 Alkaline Phosphatase 144 H Total Protein 6.8 Albumin 3.2 L Globulin 3.6 Albumin/Globulin Ratio 0.9 L Assessment & Plan Assessment & Plan narrative: 1. Chronic atrial fibrillation 2. Acute decompensated cor pulmonale with pulmonary hypertension 3. Acute hypoxia respiratory failure 4. Acute GI Bleed Mr. Reeves has a long standing hx of atrial fibrillation with a controlled ventricular rate despite not being on any rate limiting agents. He may have some components of sick sinus syndrome but he is currently hemodynamically stable and there is no immediate need for permanent pacemaker implantation at this time. His [id number] is a 4. He would benefit from care home anticoagulation. Ideally he should undergo a EGD prior to the initiation of anticoagulation but given he is a high risk, Dr. Wei of general surgery would consider a EGD if the patient develops a repeat bleed. He has acute decompensated cor pulmonale with pulmonary hypertension. He is WHO class III due to his underlying lung disease. He has no known signs of connective tissue disease or history of PE and his LV function is preserved. He is still in volume overload. Continued IV Lasix 40 mg daily. Once he is euvolemic consider toresmide 20 mg daily. Check TSH and Mg as well. The plan of care has been discussed with the patient, and the hospital team. He should follow up with Cardiology upon his discharge. Thank you for allowing us to participate in this patient's care. Total time spent today atleast 40 minutes.
--- NOTE | 2019-09-11 12:57 | P.PN_ITS ---
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 The patient is resting in bed comfortably. He reports his breathing feels significantly improved since the day before and since admission. He endorses dyspnea on exertion. He has overall generalized weakness and deconditioning and continuing physical and occupational therapy. He has no complaints overall. He denies headache, chest pain, shortness of breath, abdominal pain, nausea, vomiting, fever, chills, dysuria, diarrhea or constipation. The patient is voiding and eliminating without difficulty. Exam Vital Signs (past 8 hours): - 09/11/19 06:24 09/11/19 06:33 09/11/19 08:00 Temperature 97.9 F 98.5 F Pulse Rate 58 L 65 Respiratory Rate 10 L 24 Blood Pressure 108/54 L 108/54 L 115/33 L Pulse Oximetry 99 96 09/11/19 08:29 09/11/19 10:00 09/11/19 12:00 Temperature Pulse Rate 63 59 L Respiratory Rate 28 H 15 Blood Pressure 115/49 L Pulse Oximetry 94 92 98 Fraction of Inspired Oxygen 0.30 Oxygen Delivery Method Room Air Oxygen Flow Rate 0 Narrative Exam Narrative: General: Elderly gentleman lying in bed and in no acute distress, well- developed, well-nourished, mild somnolence but appropriately interactive. HEENT: Normocephalic, atraumatic. External ears without defect. Pupils equal, round, and reactive to light. Anicteric sclerae, moist conjunctivae, and no lid lag. Oropharynx free of erythema and cobble stoning with moist mucosa. Neck: Supple with full range of motion. Mild jugular venous distension. No lymphadenopathy or thyromegaly. Cardiovascular: Regular rate and rhythm without murmurs, rubs, or gallops appreciated. Pulmonary: Diminished throughout but clear to auscultation with fine bibasilar crackles. No wheeze or rhonchi. Normal respiratory effort with no use of accessory muscles. Abdomen: Soft, bowel sounds present, nontender, nondistended. No hepatosplenomegaly or masses appreciated. Extremities: No clubbing or cyanosis. Stasis dermatitis of bilateral lower extremities. Dependent edema to hips bilaterally but significantly improved. Wound over right knee covered with dressing C/D/I. Small skin tear on back of right leg behind knee with dressing over it. Skin: Normal temperature, turgor, and texture; no rash, ulcers, or subcutaneous nodules appreciated. Neurological: Cranial nerves grossly intact. Psychiatric: Normal mood and affect. Alert and oriented to person, place, and time. Mild somnolence. Objective Labs Result Diagrams: 09/12/19 04:55 09/12/19 04:55 Labs: Laboratory Results - last 24 hr 09/10/19 09/10/19 09/10/19 08:33 13:54 14:47 WBC 7.7 RBC 2.56 L Hgb 8.4 L Hct 25.6 L MCV 100.0 MCH 32.9 MCHC 32.9 RDW 21.6 H Plt Count 112 L Neut % (Auto) 87.1 H Lymph % (Auto) 6.8 L [facility] % (Auto) 5.0 Eos % (Auto) 0.5 L Baso % (Auto) 0.6 Neut # (Auto) 6700 Lymph # (Auto) 500 L [facility] # (Auto) 400 Eos # (Auto) 0 Baso # (Auto) 0 RBC Morphology See below Poikilocytosis 1+ H Anisocytosis 2+ H Macrocytosis 1+ H Target Cells 1+ H ABG pH 7.36 7.41 ABG pCO2 61.5 H* 63.5 H* ABG pO2 54 L 72 L ABG HCO3 35 H 40 H ABG Total CO2 37 H 42 H ABG O2 Saturation 85 L 94 L ABG Base Excess 9.0 H 15.0 H FiO2 0.30 0.30 Sodium Potassium Chloride Carbon Dioxide BUN Creatinine Estimated GFR BUN/Creatinine Ratio Glucose Calcium Magnesium Total Bilirubin AST ALT Alkaline Phosphatase Total Protein Albumin Globulin Albumin/Globulin Ratio 09/10/19 09/10/19 09/11/19 14:47 19:31 00:19 WBC RBC Hgb Hct MCV MCH MCHC RDW Plt Count Neut % (Auto) Lymph % (Auto) [facility] % (Auto) Eos % (Auto) Baso % (Auto) Neut # (Auto) Lymph # (Auto) [facility] # (Auto) Eos # (Auto) Baso # (Auto) RBC Morphology Poikilocytosis Anisocytosis Macrocytosis Target Cells ABG pH 7.42 ABG pCO2 56.7 H ABG pO2 75 L ABG HCO3 37 H ABG Total CO2 39 H ABG O2 Saturation 95 ABG Base Excess 12.0 H FiO2 0.30 Sodium 138 137 Potassium 4.4 4.1 Chloride 96 L 95 L Carbon Dioxide 38 H 39 H BUN 55 H 52 H Creatinine 1.50 H 1.40 H Estimated GFR 44.6 L 48.3 L BUN/Creatinine Ratio 36.7 H 37.1 H Glucose 83 88 Calcium 9.6 9.3 Magnesium 2.0 Total Bilirubin AST ALT Alkaline Phosphatase Total Protein Albumin Globulin Albumin/Globulin Ratio 09/11/19 09/11/19 09/11/19 00:19 04:33 04:33 WBC 5.5 RBC 2.42 L Hgb 7.9 L Hct 24.2 L MCV 99.9 MCH 32.7 MCHC 32.7 RDW 21.3 H Plt Count 102 L Neut % (Auto) 82.3 H Lymph % (Auto) 8.1 L [facility] % (Auto) 8.2 Eos % (Auto) 1.0 L Baso % (Auto) 0.4 Neut # (Auto) 4500 Lymph # (Auto) 400 L [facility] # (Auto) 400 Eos # (Auto) 100 Baso # (Auto) 0 RBC Morphology See below Poikilocytosis Anisocytosis 2+ H Macrocytosis 1+ H Target Cells 1+ H ABG pH ABG pCO2 ABG pO2 ABG HCO3 ABG Total CO2 ABG O2 Saturation ABG Base Excess FiO2 Sodium 138 Potassium 4.0 Chloride 94 L Carbon Dioxide 39 H BUN 52 H Creatinine 1.40 H Estimated GFR 48.3 L BUN/Creatinine Ratio 37.1 H Glucose 97 Calcium 9.2 Magnesium 1.9 1.9 Total Bilirubin 0.8 AST 26 ALT 17 Alkaline Phosphatase 144 H Total Protein 6.8 Albumin 3.2 L Globulin 3.6 Albumin/Globulin Ratio 0.9 L Assessment & Plan Assessment & Plan narrative: Mehul Reeves is a 84-year-old male with a past medical history significant for hypertension, atrial fibrillation on warfarin, gout, and 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 1. Acute decompensated cor pulmonale, secondary to pulmonary arterial hypertension, present on admission. Active. -Patient has dependent edema up to hips bilaterally and developed flash pulmonary edema overnight 09/10 likely due to 1 U PRBC in setting of fluid overload already. -Echocardiogram demonstrated mild concentric left ventricular hypertrophy with ejection fraction 55-60%, flattened septum is consistent with RV pressure/volume overload, moderately dilated right ventricle with moderately reduced right ventricular systolic function, severe biatrial enlargement, mild aortic stenosis, mild mitral annular calcification, mild to moderate mitral regurgitation, severe tricuspid regurgitation, RVSP 66 mmHg, severe pulmonary hypertension. -Continue quinapril 40 mg daily. -Continue furosemide 40 mg IV 3 times daily today for goal of 2-3 L diuresis daily and will reassess diuretic dose daily. -Continue to monitor strict I&O and daily weights. Net - 4 L. -Continue fluid restriction of 1.5 L. -Continue heart healthy and low-sodium < 2g diet. -Continue to monitor electrolytes closely in setting of diuresis and replete as necessary. Goal K+> 4.0 and Mg+> 2.0. -Bilateral venous Doppler ultrasound negative for DVT. -Consulted Cardiology, Dr. Chandler, and we appreciate her time and care of t he patient. Goal diuresis net -6 L with 2-3 L off per day. 2. Acute on chronic hypoxemic and hypercarbic respiratory failure, secondary to decompensated cor pulmonale and obstructive and restrictive lung disease, present on admission. Acute portion resolved. -Patient is on 2.5 L continuous supplemental oxygen at home. -Patient developed flash pulmonary edema overnight on 09/10 likely due to 1 U PRBC in setting of fluid overload already. -Consulted respiratory therapy for evaluation and treatment. ABG performed demonstrated compensated hypoxemia and hypercarbia pH 7.36, pCO2 61.5, PO2 54, HC03 34.9 with SpO2 85% on FiO2 44%. Transferred patient to ICU for BiPAP support. Continue BiPAP while sleeping or napping. Patient requires nocturnal and daytime noninvasive ventilator due to severity of COPD and restrictive lung disease which are the primary causes of his chronic respiratory failure, BiPAP inefficient, and will need to be placed once he is discharged from half-way facility for rehabilitation. 3. Chronic atrial fibrillation with intermittent idioventricular rhythm, present on admission. Stable. -Initially held anticoagulation due to GI bleeding. -[id number] score is 5 placing him at moderate to high risk of VTE. -Discontinued warfarin as patient has had recurrent unexplainable elevation of INR. Started Eliquis 2.5 mg twice daily (due to age and creatinine). -Continue to monitor electrolytes closely and setting of diuresis and replete as necessary. Goal K+> 4.0 and Mg+> 2.0. -TSH normal at 4.09. 4. Acute GI bleed with acute blood loss anemia, secondary to supratherapeutic INR, present on admission. Resolved. -Patient appears to have GI bleed process related to elevated INR. -Initial hemoglobin 6.9. Received 2 units PRBC on 09/06. Reversed elevated INR with Vitamin K X 2. Received additional 1 unit PRBC for hemoglobin 7.8 with not quite expected compensation with hemoglobin now 8.4. Transfusion goal hemoglobin < 7.5. -Consulted general surgery, Dr. Wei, who does not plan on performing endoscopy as patient is high risk and would only perform if patient rebleeds. -Continue Protonix 40 mg twice daily. 5. Supratherapeutic INR, present on admission. Resolved. -Unclear cause of recent Coumadin toxicity/elevated INR. No recent medication c hanges or additions. No recent antibiotics. -Initial INR 8.3. Received vitamin K x2. INR now 1.4. -Liver US unremarkable. -Discontinued warfarin as patient has had recurrent unexplainable elevation of INR. -Started Eliquis 2.5 mg twice daily. 6. COPD, present on admission. Stable. -Does not represent COPD exacerbation. -Continue Albuterol/Duoneb as needed. 7. 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 Presumed stable. -Continue home supplemental oxygen with 2.5 L continuously via nasal cannula. -Continue outpatient follow-up with angledozer operator, Dr. Talamantes, for possible Mesothelioma. 8. Acute kidney injury, on chronic kidney disease stage III, present on admission. Acute kidney injury resolved. -Baseline creatinine unknown. Initial creatinine 2.6. Creatinine trended down to 1.5-1.6 which is likely patient's baseline. -Avoid nephrotoxic agents. -Continue to monitor renal function daily. 9. Hypertension, chronic, present on admission. Stable. -Continue quinapril 40 mg daily and diuresis as above. 10. Obstructive sleep apnea, chronic, present on admission. Stable. -Patient requires nocturnal and daytime noninvasive ventilator due to severity of COPD and restrictive lung disease which are the primary causes of his chronic respiratory failure, BiPAP inefficient, and will need to be placed once he is discharged from half-way facility for rehabilitation. -Discontinued CPAP. Disposition: Patient likely to discharge to half-way facility possibly tomorrow for rehabilitation once euvolemic.
[2019-09-11] MEDS: guaiFENesin ER 600 MG TAB 1200 MG PO ×2 (13:03→21:08)
--- NOTE | 2019-09-11 16:54 | PC.NURSE ---
1600hr- Patient is resting quietly in bed. Bipap is on settings 30% FI02. Saturation is 100% Heart rate occasionally dips to under 40 BPM but does not sustain there. Patient is in AFib SVR. Will monitor.
[2019-09-11] MEDS: ALLOPURINOL 300 MG TABLET PO (17:30)
[2019-09-11 21:02] LABS: BUN Creatinine Ratio 34.4 (6-22); Blood Urea Nitrogen 55 mg/dL (9-20); Calcium 9.4 mg/dL (8.4-10.2); Chloride 94 mmol/L (98-107); Estimated Glomerular Filt Rate 41.4 mL/min (>60); Glucose 109 mg/dL (80-110); HEMOLYSIS < 15 (0-50); Potassium 4.3 mmol/L (3.4-5.1); Sodium 139 mmol/L (137-145)
[2019-09-11] MEDS: LATANOPROST 0.005% OPHTH 2.5 ML 1 DROPS EYE-BOTH (21:08)
[2019-09-11 21:15] LABS: Carbon Dioxide 42 mmol/L (22-32)
[2019-09-12] VITALS (7 sets, daily range): BP systolic 108–118; BP diastolic 43–61; PULSE 56–66; RESP 8–24; TEMP 30.9–36.6; O2SAT 93–100
--- NOTE | 2019-09-12 01:31 | PC.NURSE ---
Dressing on posterior of right calf soaking through, reinforced with abd and net guaze.
[2019-09-12 05:44] LABS: Add Manual Diff / Slide Review NO; Basophils Absolute Auto 0 /uL (0-100); Basophils Percent Auto 0.6 % (0-2); Eosinophils Absolute Auto 100 /uL (0-450); Eosinophils Percent Auto 1.3 % (2-4); Lymphocytes Absolute Auto 800 /uL (1100-4500); Lymphocytes Percent Auto 12.7 % (25-40); Mean Corpuscular HGB Conc 33.4 % (30-36); Mean Corpuscular Hemoglobin 33.4 PG (26-34); Mean Corpuscular Volume 100.1 fL (80-100); Monocytes Absolute Auto 600 /uL (0-900); Monocytes Percent Auto 9.4 % (3-14); Neutrophils Absolute Auto 4500 /uL (1500-7000); Platelet Count 119 X10^3/uL (150-400); Red Blood Cell Count 2.39 X10^6/uL (4.5-5.9); Red Cell Distribution Width 21.5 % (11.6-14.8)
[2019-09-12 05:54] LABS: Blood Urea Nitrogen 51 mg/dL (9-20); Calcium 9.4 mg/dL (8.4-10.2); Chloride 96 mmol/L (98-107); Estimated Glomerular Filt Rate 44.6 mL/min (>60); Glucose 97 mg/dL (80-110); HEMOLYSIS < 15 (0-50); Magnesium 1.9 mg/dL (1.6-2.3); Sodium 141 mmol/L (137-145)
[2019-09-12 06:01] LABS: Carbon Dioxide 39 mmol/L (22-32)
[2019-09-12 06:32] LABS: Anisocytosis 2+
[2019-09-12 06:33] LABS: Macrocytosis 1+; Poikilocytosis 1+
[2019-09-12 06:34] LABS: Rouleaux 2+
[2019-09-12] MEDS: PANTOPRAZOLE 40 MG TABLET PO (10:47)
[2019-09-12] MEDS: guaiFENesin ER 600 MG TAB 1200 MG PO (10:47)
[2019-09-12] MEDS: CYANOCOBALAMIN (VITAMIN B-12) 100 MCG TABLET PO (10:48)
[2019-09-12] MEDS: SODIUM CHLORIDE 0.9% FLUSH 10 ML IV (10:49)
--- NOTE | 2019-09-12 12:17 | P.DS_ITS ---
History of Present Illness History of Present Illness Date Patient Seen: 10/06/19 Chief complaint: struggling to breath/weak/doesn't feel well Narrative: Written by Dr. Holloway: This is an 84-year-old male who lives in his own home with his and presents with progressive weakness and shortness of breath over the last 3-4 days. He has not been able to walk on his own, declining to use a wheelchair, walker or cane and instead depending on his to help him walk around in his house. He has noticed dark brown stool and traces of blood on the stools. His INR on presentation is 8.3 with a hemoglobin of 6.9. His kidney function also shows signs of acute worsening with a baseline creatinine of 0.8 now up to 2.5. His renal ultrasound and CT KUB showed no acute cause of renal failure. 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 Most recently he fell at home sustaining a large hematoma on the right knee that has become a chronic wound. He has been following up with the wound care here in this hospital once a week with a wound care visit and dressing change due on Monday, 3 days from now. There has been no vomiting or abdominal pain. He has never had to have a blood transfusion or been treated for severe anemia before. He was just started on oxygen about 2 weeks ago by his accounting system expert. His primary care is with Dr. Shaheen Timmons in [place] Discharge Providers Provider Date of admission: 09/06/19 08:07 Discharge Date: 09/12/19 Primary care physician: Paramjit Timmons MD Consults: 09/07/19 09:20 Consult to General Surgery Routine Comment: Consulting Provider: Bert Wei Reason for consultation: GI bleed Has provider been notified: Yes Consult to Physical Therapy Evaluate & Treat Comment: Physician Instructions: Evaluate and Treat 09/10/19 08:46 Consult to Cardiology Routine Comment: Consulting Provider: Jarrell Chandler Reason for consultation: Decompensated Cor Pulmonale Has provider been notified: Yes Discharge provider: Fina Lovett DO Summary Hospital Course Discharge Diagnosis: 1. Acute decompensated cor pulmonale, secondary to pulmonary arterial hypertension, present on admission. Acute decompensation resolved. 2. Acute on chronic hypoxemic and hypercarbic respiratory failure, secondary to decompensated cor pulmonale and obstructive and restrictive lung disease, present on admission. Acute portion resolved. 3. Chronic atrial fibrillation with intermittent idioventricular rhythm, present on admission. Stable. 4. Acute GI bleed with acute blood loss anemia, secondary to supratherapeutic INR, present on admission. Resolved. 5. Supratherapeutic INR, present on admission. Resolved. 6. COPD, present on admission. Stable. 7. 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 Presumed stable. 8. Acute kidney injury, on chronic kidney disease stage III, present on admission. Acute kidney injury resolved. 9. Hypertension, chronic, present on admission. Stable. 10. Obstructive sleep apnea, chronic, present on admission. Stable. Hospital Course: Mehul Reeves is a 84-year-old male with a past medical history significant for hypertension, atrial fibrillation on warfarin, gout, and 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 1. Acute decompensated cor pulmonale, secondary to pulmonary arterial hypertension, present on admission. Acute decompensation resolved. -Patient had dependent edema up to hips bilaterally and developed flash pulmonary edema overnight on 09/10 likely due to 1 U PRBC in setting of fluid overload already. -Echocardiogram demonstrated mild concentric left ventricular hypertrophy with ejection fraction 55-60%, flattened septum is consistent with RV pressure/volume overload, moderately dilated right ventricle with moderately reduced right ventricular systolic function, severe biatrial enlargement, mild aortic stenosis, mild mitral annular calcification, mild to moderate mitral regurgitation, severe tricuspid regurgitation, RVSP 66 mmHg, severe pulmonary hypertension. -Patient has severe pulmonary hypertension secondary to lung disease as below and is classified as WHO class 3. -Continued quinapril 40 mg daily. -Continued furosemide 40 mg IV 3 times daily then twice daily today for goal of 2-3 L diuresis daily and will reassess diuretic dose daily. -Continued to monitor strict I&O and daily weights. Net - 6.1 L. -Continued fluid restriction of 1.5 L and heart healthy, low-sodium < 2g diet. -Continued to monitor electrolytes closely in setting of diuresis and replete as necessary. Current potassium 4.0 and magnesium 1.9. Goal K+> 4.0 and Mg+> 2.0. Recommend recheck electrolytes and 2-3 days and prior to Cardiology follow-up on 09/17. -Bilateral venous Doppler ultrasound negative for DVT. -Consulted Cardiology, Dr. Chandler, and we appreciate her time and care of the patient. Goal diuresis net -6 L with 2-3 L off per day. 2. Acute on chronic hypoxemic and hypercarbic respiratory failure, secondary to decompensated cor pulmonale and obstructive and restrictive lung disease, present on admission. Acute portion resolved. -Patient is on 2.5 L continuous supplemental oxygen at home. -Patient developed flash pulmonary edema overnight on 09/10 likely due to 1 U PRBC in setting of fluid overload already. -Consulted respiratory therapy for evaluation and treatment. ABG performed demonstrated compensated hypoxemia and hypercarbia pH 7.36, pCO2 61.5, PO2 54, HC03 34.9 with SpO2 85% on FiO2 44%. Transferred patient to ICU for BiPAP support. Continued supplemental oxygen and titrated down as tolerated. Now on 2.5 L which is his baseline oxygen requirement. Continued BiPAP while sleeping or napping. Patient requires nocturnal and daytime noninvasive ventilator due to severity of COPD and restrictive lung disease which are the primary causes of his chronic respiratory failure, BiPAP inefficient, and will need to be placed once he is discharged from care home facility for rehabilitation. 3. Chronic atrial fibrillation with intermittent idioventricular rhythm, present on admission. Stable. -Patient is not on rate control/an blocking medication and has controlled and intermittently slow rate possibly due to sick sinus syndrome. He has had no hemodynamic instability or symptomatic bradycardia, therefore, does not need pacemaker placement currently but may in the future. -TSH normal at 4.09. -Initially held anticoagulation due to GI bleeding. [id number] score is 4 placing him at moderate to high risk of VTE. Discontinued warfarin as patient has had recurrent unexplainable elevation of INR. Started Eliquis 2.5 mg twice daily (due to age > 80 y.o. and creatinine > 1.5). -Continued to monitor electrolytes closely and setting of diuresis and replete as necessary. Goal K+> 4.0 and Mg+> 2.0. 4. Acute GI bleed with acute blood loss anemia, secondary to supratherapeutic INR, present on admission. Resolved. -Patient presented with melanotic stool with some bright red blood, shortness of breath, and acute blood loss anemia due to GI bleed. -Initial hemoglobin 6.9. Received 2 units PRBC on 09/06. Reversed elevated INR with Vitamin K X 2. Received additional 1 unit PRBC for hemoglobin 7.8 with not quite expected compensation with hemoglobin now 8.4. Transfusion goal hemoglobin < 7.5. -Consulted general surgery, Dr. Wei, who did not perform endoscopy as patient is high risk and he would only perform if patient rebleeds. -Continued Protonix 40 mg twice daily for 4 weeks and then decrease to 40 mg daily thereafter. 5. Supratherapeutic INR, present on admission. Resolved. -Unclear cause of recent Coumadin toxicity/elevated INR. No recent medication changes or additions. No recent antibiotics. -Initial INR 8.3. Received vitamin K x2. INR now 1.4. -Liver US unremarkable. -Discontinued warfarin as patient has had recurrent unexplainable elevation of INR. Started Eliquis 2.5 mg twice daily as above. 6. COPD, present on admission. Stable. -Does not represent COPD exacerbation. -Continued Albuterol/Duoneb as needed. 7. 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 Presumed stable. -Continued home supplemental oxygen with 2.5 L continuously via nasal cannula. -Continue outpatient follow-up with accounting system expert, Dr. Talamantes, for possible Mesothelioma. 8. Acute kidney injury, on chronic kidney disease stage III, present on admission. Acute kidney injury resolved. -Baseline creatinine unknown. Initial creatinine 2.6. Creatinine trended down to 1.5-1.6 which is likely patient's baseline. -Avoided nephrotoxic agents. -Continued to monitor renal function daily. 9. Hypertension, chronic, present on admission. Stable. -Continued quinapril 40 mg daily and diuresis as above. 10. Obstructive sleep apnea, chronic, present on admission. Stable. -Patient requires nocturnal and daytime noninvasive ventilator due to severity of COPD and restrictive lung disease which are the primary causes of his chronic respiratory failure, BiPAP inefficient, and will need to be placed once he is discharged from care home facility for rehabilitation. -Discontinued CPAP. Exam Vital Signs (past 8 hours): - 09/12/19 08:00 09/12/19 12:00 Temperature 97.6 F 97.9 F Pulse Rate 66 62 Respiratory Rate 20 22 Blood Pressure 116/49 L 118/61 Pulse Oximetry 97 95 Fraction of Inspired Oxygen 0.30 Oxygen Delivery Method Nasal Cannula Oxygen Flow Rate 1 Narrative Exam Narrative: General: Elderly gentleman lying in bed and in no acute distress, well- developed, well-nourished, mild somnolence but appropriately interactive. HEENT: Normocephalic, atraumatic. External ears without defect. Pupils equal, round, and reactive to light. Anicteric sclerae, moist conjunctivae, and no lid lag. Oropharynx free of erythema and cobble stoning with moist mucosa. Neck: Supple with full range of motion. Jjugular venous distension. No lymphadenopathy or thyromegaly. Cardiovascular: Regular rate and rhythm without murmurs, rubs, or gallops appreciated. Pulmonary: Diminished throughout but clear to auscultation with fine bibasilar crackles. No wheeze or rhonchi. Normal respiratory effort with no use of accessory muscles. Abdomen: Soft, bowel sounds present, nontender, nondistended. No hepatosplenomegaly or masses appreciated. Extremities: No clubbing or cyanosis. Stasis dermatitis of bilateral lower extremities. Dependent edema is now isolated to back of thighs which is resolving and no other edema. Wound over right knee covered with dressing C/D/I. Small skin tear on back of right leg behind knee with dressing over it and sanguinous drainage and dressing on left hand with sanguinous drainage. Skin: Normal temperature, turgor, and texture; no rash, ulcers, or subcutaneous nodules appreciated. Scattered bruises throughout arms and legs. Neurological: Cranial nerves grossly intact. Psychiatric: Normal mood and affect. Alert and oriented to person, place, and time. Mild somnolence. Objective Labs Result Diagrams: 09/12/19 04:55 09/12/19 04:55 Labs: Laboratory Results - last 24 hr 09/11/19 09/12/19 09/12/19 20:44 04:55 04:55 WBC 6.0 RBC 2.39 L Hgb 8.0 L Hct 24.0 L MCV 100.1 H MCH 33.4 MCHC 33.4 RDW 21.5 H Plt Count 119 L Neut % (Auto) 76.0 H Lymph % (Auto) 12.7 L [place] % (Auto) 9.4 Eos % (Auto) 1.3 L Baso % (Auto) 0.6 Neut # (Auto) 4500 Lymph # (Auto) 800 L [place] # (Auto) 600 Eos # (Auto) 100 Baso # (Auto) 0 RBC Morphology See below Poikilocytosis 1+ H Anisocytosis 2+ H Macrocytosis 1+ H Rouleaux 2+ H Sodium 139 141 Potassium 4.3 4.0 Chloride 94 L 96 L Carbon Dioxide 42 H* 39 H BUN 55 H 51 H Creatinine 1.60 H 1.50 H Estimated GFR 41.4 L 44.6 L BUN/Creatinine Ratio 34.4 H 34.0 H Glucose 109 97 Calcium 9.4 9.4 Magnesium 2.0 1.9 Discharge Plan Discharge Plan Patient Disposition: SNF Transfer to: [facility] Under care of provider: regional rehabilitation director Discharge orders & Medications Prescriptions: New acetaminophen 325 mg Tablet 975 mg PO Q8H PRN (Reason: Pain, Mild (1-3)) Qty: 30 RF: 0 melatonin 3 mg Tablet 3 mg PO BEDTIME Qty: 30 RF: 0 pantoprazole 40 mg Tablet,Delayed Release (Dr/Ec) 40 mg PO 0700,2100 Qty: 60 RF: 0 docusate sodium [DOK] 100 mg Capsule 100 mg PO BID PRN (Reason: Constipation) Qty: 30 RF: 0 Eliquis 5 mg Tablet 2.5 mg PO BID Qty: 30 RF: 0 guaifenesin [Mucus Relief ER] 600 mg Tablet Extended Release 12hr 1,200 mg PO BID Qty: 30 RF: 0 polyethylene glycol 3350 17 gram Powder In Packet 17 gm PO DAILY PRN (Reason: Constipation) Qty: 30 RF: 0 torsemide 10 mg Tablet 40 mg PO DAILY Qty: 30 RF: 0 Continued Vitamin B-12 100 mcg PO QDAY Qty: 0 RF: 0 Coenzyme Q10 (#CO ENZYME Q-10) 100 mg PO QDAY Qty: 0 RF: 0 BETAMETH/CLOTRIMAZOLE (Clotrimazole-Betamethasone Crm) 1 cre Topical BID Qty: 0 RF: 0 allopurinol 300 MG tablet 300 mg PO QPM Qty: 0 RF: 0 Glucosamine Sulfate (GLUCOSAMINE-) 750 mg PO QDAY Qty: 0 RF: 0 quinapril [Accupril] 40 MG tablet 40 mg PO QDAY Qty: 90 RF: 0 lorazepam 1 MG tablet 0.5 mg PO HS RF: 0 latanoprost 0.005 % drops 1 drp EYE-BOTH BEDTIME RF: 0 Discontinued [CPAP] 1 unit HS Qty: 0 RF: 0 warfarin [Coumadin] 2.5 MG tablet 2.5 mg PO QDAY Qty: 100 RF: 1 furosemide 40 MG tablet 40 mg PO QAM RF: 0 Other Ambulatory Orders: Basic Metabolic Panel (Stat) Timeframe: 3 Days Facility: [facility] - Location: Laboratory Ordered By: Fina Lovett Complete Blood Count AUTO DIFF (Stat) Timeframe: 3 Days Facility: [facility] - Location: Laboratory Ordered By: Fina Lovett Magnesium (Stat) Timeframe: 3 Days Facility: [facility] - Location: Laboratory Ordered By: Fina Lovett Follow up/Referrals: Paramjit Timmons MD [Primary Care Provider] - Discharge Health Status Health Concerns: Mehul Reeves is a 84-year-old male with a past medical history significant for hypertension, atrial fibrillation on warfarin, gout, and asbestosis with possible mesothelioma and restrictive and obstructive lung disease who was admitted with acute lower GI bleeding, elevated INR of 8.3 and a hemoglobin of 6.9 related to his chief complaint of shortness of breath/weakness. The patient's warfarin was discontinued he had no further GI bleeding and he was started on Eliquis without any signs of recurrent GI bleeding. He is on Protonix 40 mg twice daily for 1 month then may be decreased to 40 mg daily thereafter. He was found to have decompensated cor pulmonale due to pulmonary hypertension from restrictive and obstructive lung disease and was placed on BiPAP and aggressively diuresed for several days. Cardiology was consulted and he have scheduled close outpatient follow-up on 09/17/2019 with requested lab work prior to visit with CBC, BMP, and magnesium. The patient has a chronic wound on his right knee which is healing well and followed by outpatient wound care clinic on Mondays. Diet/Activity/Treatments Diet: Low-fat, Low-sodium and Low-cholesterol Diet comment: 1.5 L fluid restriction, low sodium < 2 g a day Oxygen: 2.5 continuous oxygen,BiPAP 18/5 while napping or sleeping with autotitrate [facility] Reason for rehabilitation: Recovery r/t decondition Rehab type: Physical therapy and Occupational therapy Discharge Data Primary Care Provider: Paramjit Timmons
--- NOTE | 2019-09-12 12:19 | PT.IPTN ---
Current Diagnoses Anemia, unspecified (09/06/19) Melena (09/06/19) Gastrointestinal hemorrhage, unspecified (09/06/19) Other polyuria (09/06/19) Physical Therapy Treatment Note M2 PT-IP Current Condition Start: 09/07/19 15:47 Freq: NEEDED Status: Active Protocol: Document 09/07/19 15:15 MB (Rec: 09/07/19 16:05 MB [id number]) Physical Therapy Current Condition Current Condition Evaluation Date 09/07/19 Treatment Diagnosis Weakness, increased HR, SOB M3 PT-IP Subjective Start: 09/07/19 15:47 Freq: NEEDED Status: Active Protocol: Document 09/12/19 11:42 CECILIO (Rec: 09/12/19 12:56 CECILIO [id number]) Subjective Physical Therapy Visit Type Type Treatment Note Visit Start Time 11:42 Visit Stop Time 12:19 Total Visit Minutes 37 Notes Treatment supervised by BETTE Ford. Pts present during treatment. Physical Therapy Visit Comments Patient Comments Pt agreeable to work w/ PT. Therapy Pain Assessment Pain When Pain Assessed At Rest Pain Present Pain Present Denied Pain M4 PT-IP Mobility and Gait Start: 09/07/19 15:47 Freq: NEEDED Status: Active Protocol: Document 09/12/19 11:42 CECILIO (Rec: 09/12/19 12:56 CECILIO [id number]) PT-Bed Mobility Assessment Supine to Sit Supine to Sit Standby Assistance,1 Person Assistance,Head of Bed Elevated Scooting Scooting to Edge of Bed Standby Assistance PT-Transfer Assessment Sit to and From Stand Sit to and from Stand Contact Guard Assistance,1 Person Assistance,Use of Upper Extremities Equipment Transfer Assistive Device Gait Belt,Front Wheeled Walker Transfers Transfer Destination Chair Transfer Technique pt ambulated with FWW Transfer Ability Level of Assist Contact Guard Assistance Comments Mobility Comments Pt was in bed upon arrival from therapy. Completed sup<> sit and scooting EOB with SBA and HOB elevated. CGA and FWW for sit<>stand transfer and stand<>sit in chair. BP prior to treatment 118/61, HR 82, and O2 sats 94 on room air. Pt left in chair w/ all needs in reach and in room. Gait Assessment Gait Gait Assistance Required: Contact Guard Assist,1 Person Assist Distance (Feet) 200 Able to Maintain Weight Bearing Status Yes During Gait Assistive Devices Assistive Device Gait Belt,Front Wheeled Walker Orthotic/Prosthetic Devices or Brace: No Gait Deviations General Gait Pattern Decreased Stride Length, Decreased Feet Clearance, Flexed Trunk,Narrow Based Gait Factors Limiting Gait Function Factors Limiting Gait Function Decreased Activity Tolerance, Decreased Strength,Poor Balance,Poor Safety Awareness, Respiratory Distress Comments Gait Comments Pt was able to ambulate ~200 ft w/ CGA and FWW. About half way through, O2 sats reassesed on room air and fell to high 70's, 0.5 L O2 provided, pursed lip breathing encouraged and lucas to 84%, increased to 1.5L with noted elevation in O2 sat 92%, durign stationary standing. Pt denied feelings of SOB or dizziness. Frequent cuing for upright posture and pacing and slower ambulation speed, as well as breathing technique to encourage energy conservation for safety. Pt was able to perform SLS on each leg for therapist to fix socks. PT-Balance Assessment Sitting Balance and Reactions Static Sitting Balance Ability Good Dynamic Sitting Balance Ability Fair Standing Balance and Reactions Static Standing Balance Ability Fair Dynamic Standing Balance Ability Fair Device Used FWW M5 PT-IP Objective Assessments Start: 09/07/19 15:47 Freq: NEEDED Status: Active Protocol: Document 09/07/19 15:15 MB (Rec: 09/07/19 16:05 MB [id number]) Orientation Orientation/Cognition Level of Alertness Alert Orientation Name,Age,Birthday,Month,Date, Year,Day of Week,Place Language Function Ability Hard of Hearing Safety Awareness Decreased Safety Awareness Comments Decreased insight to safety situation at home and decreased receptiveness to education Gross Range of Motion Upper Extremity ROM Assessment Within Functional Limits Impairments Pt with bruising and lines Lower Extremity ROM Assessment Bilaterally Impaired Impairments Decreased hip flexion, knee extension and ankle ROM B in sitting, greater on the right LE Strength Upper Extremity Strength Assessment Bilaterally Impaired Shoulder B 4/5 flexion and abduction Elbow Right NT d/t IV; left extension 4/5 Lower Extremity Strength Assessment Bilaterally Impaired Hip B 3-/5 flexion in sitting Knee Does not follow cues, cannot reach full knee extension in sitting Ankle Does not follow cues Comments Strength Comments RLE with dressings, B LEs with areas of red bruising, pt on blood thinner Sensation Assessment Comments Sensation Comments Deferred d/t decreased cue following with MMT Other Assessments Other Other Assessments Pt is an 84 y/o male presenting with weakness, SOB and found to have mild cardiomegaly, bibasilar infiltrate, PNA and CHF pattern. He presented with low HGB on adm and after transfusion, presents with improved HGB. Pt wears 2.5L O2 at home and has a 50' O2 line that I'm worried he is going to trip over per . She reports he refuses to use an AD and so she offers for him to put his hands on her shoulders for ambulation in the house. He is tachy with short gait this date wearing 1 .5L O2 in the ICU and his sats are in the low 90s. HR increases to the 120s and then lowers to the 60s upon returning to supine. states that his medical status is one reason he does not like to walk too far at home. He presents with poor safety awareness, generalized weakness, postural changes, poor inhalation through his nose, skin integrity issues and poor safety awareness. His legs are edematous. He will benefit from acute and post- acute PT to improve strength, balance, transfers and gait. PT recommends SNF at d/c. M6 PT-IP Treatment Start: 09/07/19 15:47 Freq: NEEDED Status: Active Protocol: Document 09/12/19 11:42 CECILIO (Rec: 09/12/19 12:56 [id number]) Physical Therapy Treatment Education Education Provided Safety Other Treatments Other Treatment Performed Reinforcement of taping on current dressing, instructed by SYRUP BLENDER to allow attendence with therapy until nursing can redress after therapy. M7 PT-IP Assessment and Plan Start: 09/07/19 15:47 Freq: NEEDED Status: Active Protocol: Document 09/12/19 11:42 CECILIO (Rec: 09/12/19 12:56 [id number]) PT Summary Assessment and Plan Potential Rehabilitation Potential Good Status of Condition at Evaluation Evolving Summary Impairments Strength,Balance,Bed Mobility, Transfers,Gait,Activity Tolerance Progress Towards Goals Slow Progress due to Medical Issues Assessment Summary Pt has improved tolerance for bed mobility and gait training . Still requiring O2 for ambulation and frequent cues for pursed lip breathing. Ambulated ~200 ft, O2 added at ~100 ft, O2 sats from high 70 's on room air during ambulatiopn to 91 on 1.5 L O2. Pt is SBA for all bed mobility, CGA for sit<>stand and stand<>sit as well as ambulation w/ FWW. Goals Bed Mobility Goal Independent Transfer Goal Independent Gait Goal Standby Assistance Gait Distance 100 Other Goals Pt will perform 5 reps sit to stand without UE support in less than 13 sec by d/c. Pt will perform sitting EOB exercises for 5' without LOB by d/c. Pt was able to ascend and descend 1 step with rail and INFORMATION OPERATOR. Continue stair management Days to Meet Goals 10 Frequency of Treatment Frequency Of Treatment Once a Day Treatment Plan Physical Therapy Treatment Plan Bed Mobility Training,Transfer Training,Gait Training, Therapeutic Exercise,Balance Retraining,Neuromuscular Re-ed Recommendations To Nursing Amount of Assist Needed 1 Person Assist Discharge Recommendations PT Discharge Recommendations SNF Rehab
[2019-09-12] MEDS: QUINAPRIL 20 MG TABLET 40 MG PO (12:57)
[2019-09-12] MEDS: TORSEMIDE 10 MG TABLET 20 MG PO (13:20)
--- NOTE | 2019-09-12 13:47 | PC.NURSE ---
Addendum entered by Rosa Reaves R.N. 09/12/19 14:01: 1315-Report called to [facility], Pt DEEPA via w/c with and friend @ 2190. Original Note: AM shift Pt is A/o x3, lungs are dim with occ. wheeze posteriorly. 2L NC , Pt has been off Bipap since 299, It was too noisy to get any sleep SOB with activity but feels significant improvement from admission. Many areas of bruising and allyvens to multiple small skin tears, Pt does not tolerate adhesives well and has fragile skin r/t coumadin use. INR is subtherapeutic this AM, and Elliquis held, as Pt has bleeding to R posterior calf, a skin tear was obtained during transfer during this stay, and Allyven to area is saturated with clotted blood, and weeping from below. Dr Lovett into evaluate this area prior to Pt D/c to [facility]. Orders obtained to hold elequis x2 days and resume on 09/15 as Pt has had fair amount of bleeding in 12 hrs. Compression coban applied. Instructed , Pt and nurse rec report about compression to area and removal of coban. IV removed to R FA, and compression applied to FA as well.
[2019-09-12 14:11] LABS: INR 2.8 (0.9-1.3); Prothrombin Time 33.4 SECONDS (10.1-12.7)
--- NOTE | 2019-09-12 14:24 | CM.DPC ---
DCP Cont: Faxed signed med list and PASRR to [facility] at fax # [phone]. Fax confirmation scanned in. Susie Rosales, [facility]
== END 2019-09-12 13:30 | DRG 811 ==
LOC: ED 07:28 → AC 08:30 → ICU 10:04 → AC 09-09 16:59 → ICU 09-10 08:36
PROVIDERS: Internal Medicine; Nurse Practitioner Adult Health; Nurse Practitioner Gerontology; Admitting Provider Family Medicine; Emergency Provider Emergency Medicine; Family Provider Internal Medicine; PCP Internal Medicine; Visit Provider Family Medicine
DX: D62 Acute posthemorrhagic anemia (principal); J81.0 Acute pulmonary edema; J96.21 Acute and chronic respiratory failure with hypoxia; K92.1 Melena; N17.9 Acute kidney failure, unspecified; I48.20 Chronic atrial fibrillation, unspecified; Z79.01 Long term (current) use of anticoagulants; J61 Pneumoconiosis due to asbestos and other mineral fibers; J44.9 Chronic obstructive pulmonary disease, unspecified; J98.4 Other disorders of lung; Z99.81 Dependence on supplemental oxygen; C45.7 Mesothelioma of other sites; I49.8 Other specified cardiac arrhythmias; I12.9 Hypertensive chronic kidney disease with stage 1 through stage 4 chronic kidney disease, or unspecified chronic kidney disease; N18.9 Chronic kidney disease, unspecified; I27.81 Cor pulmonale (chronic); E78.5 Hyperlipidemia, unspecified; G47.33 Obstructive sleep apnea (adult) (pediatric); I35.0 Nonrheumatic aortic (valve) stenosis; I34.0 Nonrheumatic mitral (valve) insufficiency; I07.1 Rheumatic tricuspid insufficiency
CPT/HCPCS: 36415; 36430; 36600; 71045; 74176; 76705; 76770; 80048; 80053; 80061; 81001; 82550; 82805; 83605; 83735; 83880; 84145; 84443; 84484; 85025; 85379; 85610; 86850; 86900; 86901; 87797; 93005; 93306; 93970; 94640; 94660; 94760; 94762; 96374; 96375; 97110; 97116; 97161; 97530; 99232; 99283; 99284; P9016; C9113; J1644; J1940; J2930

== ENCOUNTER → 2019-09-23 13:00 | Outpatient (CLI) | payer MEDICARE, OTHER, SELFPAY ==
[2019-09-06 08:46] VITALS: BMI 32.3
[2019-09-12 00:56] VITALS: PULSE 56; RESP 24; O2SAT 99
== END ==
PROVIDERS: Family Provider Internal Medicine; PCP Internal Medicine; Visit Provider Family Medicine
DX: S81.011D Laceration without foreign body, right knee, subsequent encounter (principal)
CPT/HCPCS: 99213

== ENCOUNTER 2019-10-04 11:42 | Emergency (ER) | payer MEDICARE, OTHER, SELFPAY ==
[2019-09-06 08:46] VITALS: BMI 32.3
[2019-09-12 00:56] VITALS: PULSE 56; RESP 24; O2SAT 99
[2019-10-04] VITALS (9 sets, daily range): BP systolic 106–133; BP diastolic 50–78; PULSE 60–80; RESP 16–25; TEMP 36.6–36.8; O2SAT 100
--- NOTE | 2019-10-04 11:54 | ED_ITS ---
HPI - Recheck/Abnormal Lab/Rx General Chief Complaint: Recheck/Abnormal Lab/Rx Stated Complaint: abnormal lab results, sent by doc Time Seen by Provider: 10/04/19 11:47 Source: patient Mode of arrival: Ambulatory Limitations: no limitations History of Present Illness HPI narrative: Patient is an 84-year-old male who has chronic anemia from possible GI bleed although he has yet to be evaluated for that presenting with abnormal blood work. He had blood work on the 30 of September he received a phone call from the lab company today telling him that he needed to go to ER for evaluation. He is is on home oxygen for ongoing shortness of breath but his breathing is not any worse today. He denies any dizziness lightheadedness no chest pain is he continues to have black stool which is not new for him he takes iron daily he is to be evaluated by GI next month. MD complaint: abnormal lab Related Data Home Medications Medication Instructions Recorded Confirmed coenzyme Q10 [Co Q-10] 100 mg PO QPM #0 06/21/12 10/04/19 cyanocobalamin (vitamin B-12) 100 mcg PO QPM #0 06/21/12 10/04/19 [Vitamin B-12] allopurinol 300 mg PO QPM #0 11/23/12 10/04/19 Glucosamine Sulfate (GLUCOSAMINE-) 750 mg PO QPM #0 11/26/12 10/04/19 latanoprost 1 drp EYE-BOTH BEDTIME 09/07/19 10/04/19 Iron + Vitamin C 1 tab PO BID 10/04/19 10/04/19 ipratropium bromide 1 spray INTRANASAL DIRECTED 10/04/19 10/04/19 potassium chloride 20 meq PO DAILY 10/04/19 10/04/19 pravastatin 20 mg PO DAILY 10/04/19 10/04/19 torsemide 40 mg PO DAILY 10/04/19 10/04/19 Previous Rx's Medication Instructions Recorded acetaminophen 975 mg PO Q8H PRN #30 tab 09/12/19 docusate sodium [DOK] 100 mg PO BID PRN #30 cap 09/12/19 guaifenesin [Mucus Relief ER] 1,200 mg PO BID #30 tab 09/12/19 melatonin 3 mg PO BEDTIME #30 tab 09/12/19 pantoprazole 40 mg PO 0700,2100 #60 tab 09/12/19 polyethylene glycol 3350 17 gm PO DAILY PRN #30 ea 09/12/19 Allergies Allergy/AdvReac Type Severity Reaction Status Date / Time No Known Drug Allergies Allergy Verified 06/12/18 10:12 Review of Systems Review of Systems Narrative: GENERAL: Denies chills, fatigue, malaise, fever, sweats, travel HEENT: Denies sinus pain, ear pain, sore throat, difficulty swallowing, neck pain RESPIRATORY: Denies dyspnea, cough, wheezing, hemoptysis, sputum. CARDIOVASCULAR: Denies chest pain, palpitations, orthopnea, edema GASTROINTESTINAL: Denies nausea, vomiting, abdominal pain, diarrhea, consti pation, melena. : Denies dysuria, frequency, incontinence, hematuria, urinary retention, flank pain. MUSCULOSKELETAL: Denies weakness, joint pain, or bony pain SKIN: No rash, no erythema, no pruritus NEUROLOGIC: Denies weakness, dizziness, headache, numbness, change in speech, confusion PSYCHIATRIC: No concerning psychosocial issues. 12 point review of systems is negative except for those stated above and HPI Patient History Social History household members: spouse Smoking Status: Never smoker alcohol intake: current Smoking Status: Never smoker alcohol intake frequency: 3 or more drinks per day Substance Use Type: does not use Exam Initial Vital Signs Initial Vital Signs: Vital Signs Pulse Rate 60 10/04/19 11:45 Respiratory Rate 19 10/04/19 11:45 Blood Pressure 133/77 10/04/19 11:45 Pulse Oximetry 100 10/04/19 11:45 GENERAL: Alert elderly male no acute distress HEENT: Head atraumatic,EOMI, pupils reactive, face symmetric, moist mucous mem branes CARDIOVASCULAR: Regular rate and rhythm without murmurs, rubs or gallops. RESPIRATORY: Breath sounds equal bilaterally, no wheezes rales or rhonchi. ABDOMEN: Soft, nontender. Normoactive bowel sounds all 4 quadrants. No guarding or rebound. EXTREMITIES: Normal range of motion, no clubbing or edema. Neurovascularly intact NEUROLOGICAL: Alert and oriented x4.Normal gait and speech. SKIN: Warm, dry, no laceration, no petechiae, no rashes or lesions. Course Orders Ordered: ED Orders 10/04/19 12:30 Basic Metabolic Panel Stat Complete Blood Count AUTO DIFF Stat Packed Cells Stat Type and Screen Stat Vital Signs Vital signs: Vital Signs - 8 hr 10/04/19 11:45 10/04/19 12:34 10/04/19 12:45 Temperature 98.0 F Pulse Rate 60 67 Respiratory Rate 19 20 Blood Pressure 133/77 Blood Pressure [Left Arm] 133/72 Pulse Oximetry 100 100 10/04/19 13:23 10/04/19 13:41 10/04/19 13:42 Temperature 98.2 F 97.9 F Pulse Rate 65 61 63 Respiratory Rate 25 H 21 24 Blood Pressure 121/59 L 106/50 L 106/51 L Blood Pressure [Left Arm] Pulse Oximetry 10/04/19 13:52 10/04/19 14:16 10/04/19 14:56 Temperature Pulse Rate 63 63 80 Respiratory Rate 23 19 16 Blood Pressure Blood Pressure [Left Arm] 106/51 L 127/52 L 131/78 Pulse Oximetry 100 100 100 MDM - Recheck/Abnormal Lab/Rx Lab Data Attestation: I reviewed the patient's lab results. Result diagrams: 10/04/19 12:30 10/04/19 12:30 Labs: Lab Results 10/04/19 10/04/19 10/04/19 Range/Units 12:30 12:30 12:30 WBC 3.9 L (4.5-11.0) X10^3/uL RBC 2.14 L (4.5-5.9) X10^6/uL Hgb 7.1 L (13.5-17.5) g/dL Hct 21.7 L (41-53) % MCV 101.2 H (80-100) fL MCH 33.1 (26-34) PG MCHC 32.7 (30-36) % RDW 23.1 H (11.6-14.8) % Plt Count 137 L (150-400) X10^3/uL Neut % (Auto) Not Reportable Lymph % (Auto) Not Reportable [place] % (Auto) Not Reportable Eos % (Auto) Not Reportable Baso % (Auto) Not Reportable Lymph # (Auto) Not Reportable [place] # (Auto) Not Reportable Baso # (Auto) Not Reportable Total Counted 100 Seg Neutrophils % 69.0 (38-70) % Band Neutrophils % 1.0 L (3-7) % Lymphocytes % (Manual) 17.0 L (25-45) % Monocytes % (Manual) 10.0 (2-11) % Eosinophils % (Manual) 2.0 (2-4) % Basophils % (Manual) 1.0 (0-1) % Neutrophils # (Manual) 2730 L (3115-6776) /uL RBC Morphology See below Anisocytosis 2+ H Sodium 139 (137-145) mmol/L Potassium 4.2 (3.4-5.1) mmol/L Chloride 96 L (98-107) mmol/L Carbon Dioxide 36 H (22-32) mmol/L BUN 41 H (9-20) mg/dL Creatinine 2.40 H (0.66-1.25) mg/dL Estimated GFR 25.9 L (>60) mL/min BUN/Creatinine Ratio 17.1 (6-22) Glucose 89 (80-110) mg/dL Calcium 9.1 (8.4-10.2) mg/dL Blood Type O Positive Antibody Screen Negative Crossmatch See Detail MDM Narrative Medical decision making narrative: Patient's hemoglobin is actually than what it was 2 days ago but still on the lower end. We will give him 1 unit of packed red blood cells. I've actually discussed case with Dr. Mahoney who agrees to follow-up in clinic. At this time patient is hemodynamically stable he has chronic anemia, no indication for admission. Discharge Plan Departure Patient Disposition: Home Clinical Impression: Anemia Qualifiers: Anemia type: other cause Other causes of anemia: other cause, not classified Qualified Code(s): D64.89 - Other specified anemias Discharge Date/Time: 10/04/19 15:04 Activity Restrictions/Additional Instructions: *You have been diagnosed with anemia *What to do: At this time continue to hold all anticoagulation Have blood work recheck with her PCP next week, Dr. Timmons is aware *Continue to take medications as directed *Follow up with your primary care provider in 2-3 days *Return to ER if you should have dizziness lightheadedness increasing shortness of breath abdominal pain or any new, worsening or concerning symptoms Prescriptions: No Action cyanocobalamin (vitamin B-12) [Vitamin B-12] 100 mcg Tablet 100 mcg PO QPM Qty: 0 RF: 0 coenzyme Q10 [Co Q-10] 100 mg Capsule 100 mg PO QPM Qty: 0 RF: 0 allopurinol 300 MG tablet 300 mg PO QPM Qty: 0 RF: 0 Glucosamine Sulfate (GLUCOSAMINE-) 750 mg PO QPM Qty: 0 RF: 0 latanoprost 0.005 % drops 1 drp EYE-BOTH BEDTIME RF: 0 acetaminophen 325 mg Tablet 975 mg PO Q8H PRN (Reason: Pain, Mild (1-3)) Qty: 30 RF: 0 melatonin 3 mg Tablet 3 mg PO BEDTIME Qty: 30 RF: 0 pantoprazole 40 mg Tablet,Delayed Release (Dr/Ec) 40 mg PO 0700,2100 Qty: 60 RF: 0 docusate sodium [DOK] 100 mg Capsule 100 mg PO BID PRN (Reason: Constipation) Qty: 30 RF: 0 guaifenesin [Mucus Relief ER] 600 mg Tablet Extended Release 12hr 1,200 mg PO BID Qty: 30 RF: 0 polyethylene glycol 3350 17 gram Powder In Packet 17 gm PO DAILY PRN (Reason: Constipation) Qty: 30 RF: 0 torsemide 20 mg tablet 40 mg PO DAILY RF: 0 potassium chloride 20 mEq tablet,ER particles/crystals 20 meq PO DAILY RF: 0 pravastatin 20 mg tablet 20 mg PO DAILY RF: 0 ipratropium bromide 42 mcg (0.06 %) spray,non-aerosol 1 spray INTRANASAL DIRECTED RF: 0 Iron + Vitamin C 325 mg tablet 1 tab PO BID RF: 0 Referrals: Paramjit Timmons MD [Primary Care Provider] -
[2019-10-04 12:38] LABS: Hemoglobin 7.1 g/dL (13.5-17.5); Mean Corpuscular HGB Conc 32.7 % (30-36); Mean Corpuscular Hemoglobin 33.1 PG (26-34); Mean Corpuscular Volume 101.2 fL (80-100); Platelet Count 137 X10^3/uL (150-400); Red Blood Cell Count 2.14 X10^6/uL (4.5-5.9); Red Cell Distribution Width 23.1 % (11.6-14.8); White Blood Cell Count 3.9 X10^3/uL (4.5-11.0)
[2019-10-04 12:44] LABS: Add Manual Diff / Slide Review YES; BUN Creatinine Ratio 17.1 (6-22); Blood Urea Nitrogen 41 mg/dL (9-20); Calcium 9.1 mg/dL (8.4-10.2); Carbon Dioxide 36 mmol/L (22-32); Chloride 96 mmol/L (98-107); Estimated Glomerular Filt Rate 25.9 mL/min (>60); Glucose 89 mg/dL (80-110); HEMOLYSIS < 15 (0-50); Hematocrit 21.7 % (41-53); Potassium 4.2 mmol/L (3.4-5.1); Sodium 139 mmol/L (137-145)
[2019-10-04 13:07] LABS: Neutrophils Absolute Manual 2730 /uL (3000-5900); Total Cells Counted 100
[2019-10-04 13:08] LABS: Anisocytosis 2+
--- NOTE | 2019-10-04 14:56 | PC.NURSE ---
tranfusion complete at 1447
== END 2019-10-04 15:04 | disposition home or self-care (01) ==
PROVIDERS: Emergency Provider Emergency Medicine; Family Provider Internal Medicine; PCP Internal Medicine
DX: D64.89 Other specified anemias (principal)
CPT/HCPCS: 36415; 36430; 80048; 85025; 86850; 86900; 86901; 99283; 99284; P9016

== ENCOUNTER → 2019-10-07 12:58 | Outpatient (CLI) | payer MEDICARE, OTHER, SELFPAY ==
[2019-09-06 08:46] VITALS: BMI 32.3
[2019-09-12 00:56] VITALS: PULSE 56; RESP 24; O2SAT 99
== END ==
PROVIDERS: Family Provider Internal Medicine; PCP Internal Medicine; Visit Provider Family Medicine
DX: S81.001A Unspecified open wound, right knee, initial encounter (principal); Z79.01 Long term (current) use of anticoagulants
CPT/HCPCS: 99213

== ENCOUNTER → 2019-10-14 13:43 | Outpatient (CLI) | payer MEDICARE, OTHER, SELFPAY ==
[2019-09-06 08:46] VITALS: BMI 32.3
[2019-09-12 00:56] VITALS: PULSE 56; RESP 24; O2SAT 99
== END ==
PROVIDERS: Family Provider Internal Medicine; PCP Internal Medicine; Visit Provider Family Medicine
DX: S81.001A Unspecified open wound, right knee, initial encounter (principal); Z79.01 Long term (current) use of anticoagulants; R60.0 Localized edema
CPT/HCPCS: 99212; 99213

== ENCOUNTER 2019-11-04 13:46 | Emergency (ER) | payer MEDICARE, OTHER, SELFPAY ==
[2019-09-06 08:46] VITALS: BMI 32.3
[2019-09-12 00:56] VITALS: PULSE 56; RESP 24; O2SAT 99
[2019-11-04 13:54] VITALS: BP 159/69; PULSE 59; RESP 20; TEMP 36.7; O2SAT 99
[2019-11-04 15:17] LABS: Alanine Aminotransferase 15 IU/L (<50); Albumin Globulin Ratio 0.9 (1.0-2.8); Alkaline Phosphatase 237 U/L (38-126); Aspartate Aminotransferase 33 IU/L (17-59); BUN Creatinine Ratio 27.5 (6-22); Bilirubin Total 0.6 mg/dL (0.2-1.3); Blood Urea Nitrogen 44 mg/dL (9-20); Calcium 9.3 mg/dL (8.4-10.2); Carbon Dioxide 37 mmol/L (22-32); Chloride 96 mmol/L (98-107); Estimated Glomerular Filt Rate 41.4 mL/min (>60); Globulin 4.5 g/dL (1.7-4.1); Glucose 112 mg/dL (80-110); HEMOLYSIS < 15 (0-50); Potassium 4.2 mmol/L (3.4-5.1); Sodium 139 mmol/L (137-145); Total Protein 8.5 g/dL (6.3-8.2)
[2019-11-04 15:21] LABS: Add Manual Diff / Slide Review NO; Basophils Absolute Auto 0 /uL (0-100); Basophils Percent Auto 1.1 % (0-2); Eosinophils Absolute Auto 0 /uL (0-450); Eosinophils Percent Auto 0.4 % (2-4); Hematocrit 28.3 % (41-53); Hemoglobin 9.4 g/dL (13.5-17.5); Lymphocytes Absolute Auto 700 /uL (1100-4500); Lymphocytes Percent Auto 15.7 % (25-40); Mean Corpuscular HGB Conc 33.3 % (30-36); Mean Corpuscular Hemoglobin 34.2 PG (26-34); Mean Corpuscular Volume 102.7 fL (80-100); Monocytes Absolute Auto 400 /uL (0-900); Monocytes Percent Auto 10.3 % (3-14); Neutrophils Absolute Auto 3000 /uL (1500-7000); Neutrophils Percent Auto 72.5 % (50-75); Platelet Count 116 X10^3/uL (150-400); Red Blood Cell Count 2.75 X10^6/uL (4.5-5.9); Red Cell Distribution Width 22.5 % (11.6-14.8); White Blood Cell Count 4.2 X10^3/uL (4.5-11.0)
[2019-11-04 15:28] LABS: Anisocytosis 2+; Macrocytosis 1+
[2019-11-04 15:29] LABS: Target Cells 1+
[2019-11-04 15:30] VITALS: BP 154/84; PULSE 62; RESP 16; O2SAT 97
[2019-11-04 15:30] LABS: Poikilocytosis 1+
--- NOTE | 2019-11-04 16:03 | ED.GIBLEED ---
HPI - GI Bleed General Chief complaint: GI Bleed Stated complaint: sent by PCP, refill the blood Time Seen by Provider: 11/04/19 16:03 Source: patient and family Mode of arrival: Ambulatory History of Present Illness HPI Narrative: The patient is an 84-year-old male with a history of chronic GI bleeding. The patient sees a net software architect in [place] the patient has been unable to have a scope of his GI tract because of his chronic right-sided congestive heart failure. He received blood work from his net software architect 1.5 weeks ago and called the family doctor and because his hemoglobin was 9.2 with hematocrit of 28.7 he was sent to the emergency department to be further evaluated. These blood samples were obtained on October 31. His MCV was 102. The patient admits to a history of right-sided congestive heart failure but denies a history of myocardial infarction diabetes mellitus hypertension. He has a history of COPD. In September his hemoglobin was very low at less than 7.1 and he was admitted to the hospital and transfuse 3 units of packed red blood cells. One week later he was transfused a mother unit for total of 4. The patient is on iron. He periodically has dark black stools secondary to the iron. Currently he is unaware of any active bleeding. He denies any fever chills or sweats as well as any headache. He has chronic some degree of nasal drainage and sinus congestion without epistaxis. He has had no chest pain palpitations or dizziness. He has chronic shortness of breath and a chronic mild cough unproductive of any sputum. He has had diffuse weakness fatigue and absolutely no energy. He has had no abdominal pain nausea vomiting diarrhea. He states that his belly feels full. There has been no dysuria or blood in the urine or urinary symptoms. Related Data Home Medications Medication Instructions Recorded Confirmed coenzyme Q10 [Co Q-10] 100 mg PO QPM #0 06/21/12 10/04/19 cyanocobalamin (vitamin B-12) 100 mcg PO QPM #0 06/21/12 10/04/19 [Vitamin B-12] allopurinol 300 mg PO QPM #0 11/23/12 11/04/19 Glucosamine Sulfate (GLUCOSAMINE-) 750 mg PO QPM #0 11/26/12 10/04/19 latanoprost 1 drp EYE-BOTH BEDTIME 09/07/19 11/04/19 Iron + Vitamin C 1 tab PO BID 10/04/19 10/04/19 ipratropium bromide 1 spray INTRANASAL DIRECTED 10/04/19 11/04/19 potassium chloride 20 meq PO DAILY 10/04/19 11/04/19 pravastatin 20 mg PO DAILY 10/04/19 11/04/19 torsemide 40 mg PO DAILY 10/04/19 11/04/19 apixaban [Eliquis] 2.5 mg PO BID 11/04/19 furosemide 100 mg PO DAILY 11/04/19 quinapril 10 mg 11/04/19 Previous Rx's Medication Instructions Recorded acetaminophen 975 mg PO Q8H PRN #30 tab 09/12/19 docusate sodium [DOK] 100 mg PO BID PRN #30 cap 09/12/19 guaifenesin [Mucus Relief ER] 1,200 mg PO BID #30 tab 09/12/19 melatonin 3 mg PO BEDTIME #30 tab 09/12/19 pantoprazole 40 mg PO 0700,2100 #60 tab 09/12/19 polyethylene glycol 3350 17 gm PO DAILY PRN #30 ea 09/12/19 Allergies Allergy/AdvReac Type Severity Reaction Status Date / Time No Known Drug Allergies Allergy Verified 06/12/18 10:12 Review of Systems Review of Systems Narrative: All review of systems were negative except for those mentioned in the history of present illness. Patient History Surgical History History of cataract surgery (Acute) Family History Mother CVA (cerebral vascular accident) Father PAD (peripheral artery disease) Social History household members: spouse Smoking Status: Never smoker alcohol intake: current Smoking Status: Never smoker alcohol intake frequency: 0-2 drinks per day Substance Use Type: does not use Exam Narrative Exam Narrative: PHYSICAL EXAM: CONSTITUTIONAL: Awake, Alert, Oriented, Coherent, Cooperative in NAD. Does not appear toxic or ill. He is quiet. HEAD: AT/NC EENT: PERRL, FROM of eyes, no discharge, no nystagmus, conjunctiva are mildly pale. No epistaxis or nasal drainage Oral mucosa is moist and mildly pink, posterior pharynx is without erythema or exudate. NECK: Supple, no obvious JVD, Trachea is midline without stridor, no palpable LN or masses. SPINE: No gross deformity, no palpable tenderness of the cervical, thoracic, lumbar or sacral spine. No CVA tenderness. THORAX: No deformity, retractions, chest wall tenderness, subcutaneous air or crepitice. LUNGS: Increased AP diameter of the chest with decreased breath sounds bilaterally that are basically clear without wheezes or rhonchi. HEART: Normal heart tones, regular rhythm and rate with a grade 1-2 systolic murmur along the left sternal border. r. ABDOMEN: Soft, non-tender, normal bowel sounds without guarding, rebound, rigidity or palpable mass EXTREMITIES: 1+ pitting edema without cyanosis deformity or tenderness SKIN: No rash, bruising, petechiae or purpura. NEURO: Awake, alert, oriented, conversive, cranial nerves II-XII are symmetrical and normal, moves all 4 extremities and is ambulatory Initial Vital Signs Initial Vital Signs: Vital Signs Temperature 98.1 F 11/04/19 13:54 Pulse Rate 59 L 11/04/19 13:54 Respiratory Rate 20 11/04/19 13:54 Blood Pressure 159/69 H 11/04/19 13:54 Pulse Oximetry 99 11/04/19 13:54 Course Course Course Narrative: The patient has a chronic GI bleed. At this time he is not actively bleeding from the rectum. His stool is green which did not test positive for occult blood. His hemoglobin on October 04 was 7.1 and he was transfused 3 units of packed red blood cells. Today the patient which has been chronic as well as the BUN. Glucose is 112. The patient was informed that if he develops chest pain, shortness of breath, tachycardia, worsening dizziness and feels like he is going to pass out, or stool that appears like tar or bloody stools he needs to return immediately to the emergency department. Otherwise he follows up with his net software architect and primary care physician and continues the medications he is currently on. Today the patient's WBC was 4.2 hemoglobin 9.4 hematocrit 28.3 MCV 102.7. BUN was 44 creatinine 1.6 which is chronic glucose is 112. The patient's rectal exam revealed green stool which did not test positive for occult blood. The patient will not be transfused at this time so he was discharged home. Orders Ordered: ED Orders 11/04/19 14:55 CMP [Comprehensive Metabolic Panel] Stat Complete Blood Count AUTO DIFF Stat Vital Signs Vital signs: Vital Signs - 8 hr 11/04/19 13:54 11/04/19 15:30 11/04/19 16:25 Temperature 98.1 F Pulse Rate 59 L 62 66 Respiratory Rate 20 16 Blood Pressure 159/69 H Blood Pressure [Right Arm] 154/84 H 151/77 H Pulse Oximetry 99 97 94 11/04/19 17:01 Temperature Pulse Rate 61 Respiratory Rate 21 Blood Pressure 157/63 H Blood Pressure [Right Arm] Pulse Oximetry 97 MDM - GI Bleed Lab Data Result diagrams: 11/04/19 14:55 11/04/19 14:55 Labs: Lab Results 11/04/19 11/04/19 Range/Units 14:55 14:55 WBC 4.2 L (4.5-11.0) X10^3/uL RBC 2.75 L (4.5-5.9) X10^6/uL Hgb 9.4 L (13.5-17.5) g/dL Hct 28.3 L (41-53) % MCV 102.7 H (80-100) fL MCH 34.2 H (26-34) PG MCHC 33.3 (30-36) % RDW 22.5 H (11.6-14.8) % Plt Count 116 L (150-400) X10^3/uL Neut % (Auto) 72.5 (50-75) % Lymph % (Auto) 15.7 L (25-40) % [place] % (Auto) 10.3 (3-14) % Eos % (Auto) 0.4 L (2-4) % Baso % (Auto) 1.1 (0-2) % Neut # (Auto) 3000 (2084-1394) /uL Lymph # (Auto) 700 L (3784-9724) /uL [place] # (Auto) 400 (0-900) /uL Eos # (Auto) 0 (0-450) /uL Baso # (Auto) 0 (0-100) /uL RBC Morphology See below Poikilocytosis 1+ H Anisocytosis 2+ H Macrocytosis 1+ H Target Cells 1+ H Sodium 139 (137-145) mmol/L Potassium 4.2 (3.4-5.1) mmol/L Chloride 96 L (98-107) mmol/L Carbon Dioxide 37 H (22-32) mmol/L BUN 44 H (9-20) mg/dL Creatinine 1.60 H (0.66-1.25) mg/dL Estimated GFR 41.4 L (>60) mL/min BUN/Creatinine Ratio 27.5 H (6-22) Glucose 112 H (80-110) mg/dL Calcium 9.3 (8.4-10.2) mg/dL Total Bilirubin 0.6 (0.2-1.3) mg/dL AST 33 (17-59) IU/L ALT 15 (<50) IU/L Alkaline Phosphatase 237 H (38-126) U/L Total Protein 8.5 H (6.3-8.2) g/dL Albumin 4.0 (3.5-5.0) g/dL Globulin 4.5 H (1.7-4.1) g/dL Albumin/Globulin Ratio 0.9 L (1.0-2.8) Discharge Plan Departure Patient Disposition: Home Clinical Impression: Chronic gastrointestinal bleeding Anemia Qualifiers: Anemia type: other cause Other causes of anemia: other cause, not classified Qualified Code(s): D64.89 - Other specified anemias Discharge Date/Time: 11/04/19 17:03 Instructions: Anemia, Gastrointestinal Bleeding Activity Restrictions/Additional Instructions: Continue your current medications. If you developed palpitations and racing of your heart, worsening shortness of breath, chest pain, dizziness such that you feel as though you're going to faint or you do faint, black tarry stool bloody stool you need to return to the emergency department. Your hemoglobin today is 9.4. You need to follow-up with your net software architect and primary care physician for continued monitoring and further evaluation. Prescriptions: No Action cyanocobalamin (vitamin B-12) [Vitamin B-12] 100 mcg Tablet 100 mcg PO QPM Qty: 0 RF: 0 coenzyme Q10 [Co Q-10] 100 mg Capsule 100 mg PO QPM Qty: 0 RF: 0 allopurinol 300 MG tablet 300 mg PO QPM Qty: 0 RF: 0 Glucosamine Sulfate (GLUCOSAMINE-) 750 mg PO QPM Qty: 0 RF: 0 latanoprost 0.005 % drops 1 drp EYE-BOTH BEDTIME RF: 0 acetaminophen 325 mg Tablet 975 mg PO Q8H PRN (Reason: Pain, Mild (1-3)) Qty: 30 RF: 0 melatonin 3 mg Tablet 3 mg PO BEDTIME Qty: 30 RF: 0 pantoprazole 40 mg Tablet,Delayed Release (Dr/Ec) 40 mg PO 0700,2100 Qty: 60 RF: 0 docusate sodium [DOK] 100 mg Capsule 100 mg PO BID PRN (Reason: Constipation) Qty: 30 RF: 0 guaifenesin [Mucus Relief ER] 600 mg Tablet Extended Release 12hr 1,200 mg PO BID Qty: 30 RF: 0 polyethylene glycol 3350 17 gram Powder In Packet 17 gm PO DAILY PRN (Reason: Constipation) Qty: 30 RF: 0 torsemide 20 mg tablet 40 mg PO DAILY RF: 0 potassium chloride 20 mEq tablet,ER particles/crystals 20 meq PO DAILY RF: 0 pravastatin 20 mg tablet 20 mg PO DAILY RF: 0 ipratropium bromide 42 mcg (0.06 %) spray,non-aerosol 1 spray INTRANASAL DIRECTED RF: 0 Iron + Vitamin C 325 mg tablet 1 tab PO BID RF: 0 furosemide 40 mg tablet 100 mg PO DAILY RF: 0 quinapril 10 mg tablet 10 mg RF: 0 Eliquis 2.5 mg tablet 2.5 mg PO BID RF: 0 Referrals: Paramjit Timmons MD [Primary Care Provider] -
[2019-11-04 16:25] VITALS: BP 151/77; PULSE 66; O2SAT 94
[2019-11-04 17:01] VITALS: BP 157/63; PULSE 61; RESP 21; O2SAT 97
== END 2019-11-04 17:03 | disposition home or self-care (01) ==
PROVIDERS: Emergency Provider Emergency Medicine; Family Provider Internal Medicine; PCP Internal Medicine
DX: K92.2 Gastrointestinal hemorrhage, unspecified (principal); D64.89 Other specified anemias; R79.89 Other specified abnormal findings of blood chemistry
CPT/HCPCS: 80053; 85025; 99282; 99283

== ENCOUNTER 2019-11-07 13:15 | Inpatient (IN) | payer MEDICARE, OTHER, SELFPAY ==
[2019-09-06 08:46] VITALS: BMI 32.3
[2019-09-12 00:56] VITALS: PULSE 56; RESP 24; O2SAT 99
[2019-11-07] VITALS (11 sets, daily range): BP systolic 146–193; BP diastolic 63–78; PULSE 57–74; RESP 20–28; TEMP 36.4–36.8; O2SAT 96–100; BMI 28.4
--- NOTE | 2019-11-07 13:57 | DI.RAD.S_ITS ---
PROCEDURE: XR CHEST 2V INDICATIONS: shortness of breath TECHNIQUE: 2 views of the chest were acquired. COMPARISON: [facility], CR, XR CHEST 1V, 09/10/2019, 6:19. FINDINGS: Surgical changes and devices: None. Lungs and pleura: Extensive airspace disease is identified within the perihilar regions. Small bilateral effusions appear to be present (left greater than right). There probably is bibasilar atelectasis. No definite pneumonia. Mediastinum: Mediastinal contours are normal. The heart is prominently enlarged. Bones and chest wall: No suspicious bony abnormalities. Soft tissues appear unremarkable. IMPRESSION: Cardiomegaly with prominent pulmonary edema and small bilateral effusions and suspicious for congestive heart failure. Please correlate clinically to exclude the possibility of superimposed pneumonia. Dictated by: Gaston Azul M.D. on 11/07/2019 at 13:36 Approved by: Gaston Azul M.D. on 11/07/2019 at 13:38
--- NOTE | 2019-11-07 14:12 | PC.NURSE ---
homecare nurse , noted high temp 99. +pt with increase in shortness of breath, dyspneic on exertion, lower ext edema , +abdominal distention, +burping,flatus, denies fever,nausea or vomiting, unable to increase furosemide due to renal disease. appetite decrease. last monday, with fatigue and shortness of breath.
[2019-11-07 14:21] LABS: Add Manual Diff / Slide Review NO; Basophils Absolute Auto 0 /uL (0-100); Basophils Percent Auto 0.6 % (0-2); Eosinophils Absolute Auto 0 /uL (0-450); Eosinophils Percent Auto 0.3 % (2-4); Hematocrit 28.4 % (41-53); Hemoglobin 9.5 g/dL (13.5-17.5); Lymphocytes Absolute Auto 800 /uL (1100-4500); Lymphocytes Percent Auto 16.9 % (25-40); Mean Corpuscular HGB Conc 33.6 % (30-36); Mean Corpuscular Volume 104.1 fL (80-100); Monocytes Absolute Auto 600 /uL (0-900); Monocytes Percent Auto 12.1 % (3-14); Neutrophils Absolute Auto 3300 /uL (1500-7000); Neutrophils Percent Auto 70.1 % (50-75); Platelet Count 104 X10^3/uL (150-400); Red Blood Cell Count 2.73 X10^6/uL (4.5-5.9); Red Cell Distribution Width 22.6 % (11.6-14.8); White Blood Cell Count 4.7 X10^3/uL (4.5-11.0)
[2019-11-07 14:28] LABS: INR 1.1 (0.9-1.3); Prothrombin Time 12.3 SECONDS (10.1-12.7)
[2019-11-07 14:32] LABS: Alanine Aminotransferase 13 IU/L (<50); Albumin 3.9 g/dL (3.5-5.0); Albumin Globulin Ratio 0.9 (1.0-2.8); Alkaline Phosphatase 240 U/L (38-126); Aspartate Aminotransferase 29 IU/L (17-59); BUN Creatinine Ratio 21.5 (6-22); Bilirubin Total 1.1 mg/dL (0.2-1.3); Blood Urea Nitrogen 28 mg/dL (9-20); Calcium 9.5 mg/dL (8.4-10.2); Carbon Dioxide 32 mmol/L (22-32); Chloride 98 mmol/L (98-107); Estimated Glomerular Filt Rate 52.6 mL/min (>60); Globulin 4.5 g/dL (1.7-4.1); Glucose 109 mg/dL (80-110); Potassium 3.8 mmol/L (3.4-5.1); Sodium 140 mmol/L (137-145); Total Protein 8.4 g/dL (6.3-8.2)
[2019-11-07 14:33] LABS: HEMOLYSIS < 15 (0-50)
[2019-11-07 15:00] LABS: Anisocytosis 2+; Hypochromasia 1+; Target Cells 1+
[2019-11-07 15:08] LABS: NT-proBNP (BNP-Adult 18+) 6510 pg/mL (<450)
--- NOTE | 2019-11-07 15:08 | DI.RAD.S_ITS ---
PROCEDURE: XR ABDOMEN 3V INDICATIONS: distended, tympanitic, tight TECHNIQUE: One view chest and two views of the abdomen were acquired. COMPARISON: [facility], CR, XR CHEST 2V, 11/07/2019, 14:07. FINDINGS: Surgical changes and devices: None. Chest: Lungs are abnormal with what appears to be dense pneumonia left lower lobe. Heart size is normal. No pleural effusions. No pneumoperitoneum. Abdomen: Bowel gas pattern is abnormal with gas filling of small bowel loops across the abdomen, but not to the degree that definite distention is present. Similarly, there is mild prominence of gas filling of the colon, also without true distention.. No suspicious calcifications. Visualized solid organ contours appear normal. Bones: No suspicious bony lesions. IMPRESSION: Large body habitus, gas is relatively prominent within the large and small bowel but not to the degree that the anatomic caliber is reached for establishing true distention. No free air found. There is, however, what appears to be dense pneumonia left lower lobe and cardiomegaly. Dictated by: Stevie Goldstein M.D. on 11/07/2019 at 16:00 Approved by: Stevie Goldstein M.D. on 11/07/2019 at 16:02
[2019-11-07] MEDS: FUROSEMIDE 100 MG/10 ML VIAL 60 MG IV (15:57)
--- NOTE | 2019-11-07 17:16 | ED_ITS ---
HPI - SOB/Dyspnea General Chief Complaint: Shortness of Breath/Dyspnea Stated Complaint: ekg is abnormal,retaining fluid,not feeling well Time Seen by Provider: 11/07/19 13:38 Source: patient and family Mode of arrival: Ambulatory History of Present Illness HPI Narrative: The patient is an 84-year-old male who was sent into the emergency department by the PA Sukhi Pederson. He has developed progressively worsening shortness of breath associated with fatigue. He is concerned that the patient has had progressive swelling of his legs which may be secondary to kidney disease and possibly congestive heart failure. He was concerned that the patient may have pneumonia. His EKG reveals no acute diagnostic ST segment changes. The patient has a history of kidney failure with a GFR of 30. He has a history of rights heart failure pulmonary hypertension. The patient had an oxygen saturation 94% on 2 L in the office. He he has never had pulmonary emboli the patient has been on warfarin for a number of years for atrial fibrillation which was discontinued when he developed a GI bleed and never placed on another anticoagulant. He has a history of anemia. The patient's primary complaint is that he has developed swelling of his legs, distention of his abdomen and progressive dyspnea. He has had intermittent fever with chills but no sweats. He denies any headache. He has had a cough that is been productive of a clear sputum. No hemoptysis. He denies any chest pain. He denies nausea vomiting diarrhea or any urinary symptoms. Related Data Home Medications Medication Instructions Recorded Confirmed coenzyme Q10 [Co Q-10] 100 mg PO QPM #0 06/21/12 11/07/19 cyanocobalamin (vitamin B-12) 100 mcg PO QPM #0 06/21/12 11/07/19 [Vitamin B-12] allopurinol 300 mg PO QPM #0 11/23/12 11/07/19 Glucosamine Sulfate (GLUCOSAMINE-) 750 mg PO QPM #0 11/26/12 11/07/19 latanoprost 1 drp EYE-BOTH BEDTIME 09/07/19 11/07/19 Iron + Vitamin C 1 tab PO BID 10/04/19 11/07/19 ipratropium bromide 1 spray INTRANASAL DIRECTED 10/04/19 11/07/19 potassium chloride 10 meq PO DAILY 10/04/19 11/07/19 pravastatin 20 mg PO DAILY 10/04/19 11/07/19 torsemide 40 mg PO DAILY 10/04/19 11/07/19 apixaban [Eliquis] 2.5 mg PO BID 11/04/19 furosemide 100 mg PO DAILY 11/04/19 11/07/19 quinapril 10 mg 11/04/19 guaifenesin [Mucus Relief ER] 1,200 mg PO BID 11/07/19 11/07/19 quinapril 40 mg PO DAILY 11/07/19 Previous Rx's Medication Instructions Recorded acetaminophen 975 mg PO Q8H PRN #30 tab 09/12/19 docusate sodium [DOK] 100 mg PO BID PRN #30 cap 09/12/19 melatonin 3 mg PO BEDTIME #30 tab 09/12/19 pantoprazole 40 mg PO 0700,2100 #60 tab 09/12/19 polyethylene glycol 3350 17 gm PO DAILY PRN #30 ea 09/12/19 Allergies Allergy/AdvReac Type Severity Reaction Status Date / Time No Known Drug Allergies Allergy Verified 06/12/18 10:12 Review of Systems Review of Systems ROS Unobtainable: All systems reviewed & are unremarkable except as noted in HPI and below Patient History Medical History Afib (Acute) PAIGE (acute kidney injury) (Acute) CHF (congestive heart failure) (Acute) CKD (chronic kidney disease) (Acute) COPD (chronic obstructive pulmonary disease) (Acute) Hyperlipidemia (Acute) Hypertension (Acute) Hypoxia (Acute) Pulmonary asbestosis (Acute) Social History household members: spouse Smoking Status: Never smoker alcohol intake: current Smoking Status: Never smoker alcohol intake frequency: 0-2 drinks per day Substance Use Type: does not use Exam Narrative Exam Narrative: PHYSICAL EXAM: CONSTITUTIONAL: Awake, Alert, Oriented, Coherent, Cooperative in NAD. Patient is lying supine in bed. l. HEAD: AT/NC EENT: PERRL, FROM of eyes, no discharge, no nystagmus Oral mucosa is moist and pink, posterior pharynx is without erythema or exudate. NECK: Supple, no obvious JVD, Trachea is midline without stridor, no palpable LN or masses. SPINE: No gross deformity, no palpable tenderness of the cervical, thoracic, lumbar or sacral spine. No CVA tenderness. THORAX: No deformity, retractions, chest wall tenderness, subcutaneous air or crepitice. LUNGS: Inspiratory crackles in both bases of the lung. HEART: Normal heart tones, regular rhythm and rate without murmur. Patient is not in atrial fibrillation. ABDOMEN: The abdomen is mildly distended tympanitic and nontender without guarding or palpable mass. EXTREMITIES: Nontender with 2+ pitting edema SKIN: No rash, bruising, petechiae or purpura. NEURO: Awake, alert, oriented, conversive, cranial nerves II-XII are symmetrical and normal, moves all 4 extremities Initial Vital Signs Initial Vital Signs: Vital Signs Temperature 97.6 F 11/07/19 13:30 Pulse Rate 59 L 11/07/19 13:30 Respiratory Rate 24 11/07/19 13:30 Blood Pressure 146/63 H 11/07/19 13:30 Pulse Oximetry 100 11/07/19 13:30 Course Course Course Narrative: 1721 the patient's three views of the abdomen reveal a large body habitus gas is relatively prominent within the large and small bowel but not to the degree that the anatomic caliber is reached for establishing true distention. There is no free air found there is however what appears to be dense pneumonia in the left lower lobe and cardiomegaly. The chest x-ray revealed cardiomegaly with prominent pulmonary edema and small bilateral effusions and suspicious for congestive heart failure please correlate clinically to exclude the possibility of a superimposed pneumonia. The patient's white blood count is 4.7 hemoglobin 9.5 GFR is 52.6 and proBNP is 6510 the patient will be diuresed and treated as though he is having a superimposed pneumonia. I will call the hospitalist to admit the patient. Orders Ordered: ED Orders 11/07/19 13:30 EKG-12 Lead Stat 11/07/19 13:57 XR chest 2V Stat 11/07/19 14:10 Complete Blood Count AUTO DIFF Stat Comprehensive Metabolic Panel Stat NT-proBNP (BNP-Adult 18+) Stat Prothrombin Time INR Stat 11/07/19 15:08 XR abdomen 3V Stat Acetaminophen (Tylenol) 650 mg PO Q6HR PRN PRN Reason: Fever/Mild Pain (1-3) Al Hydrox/Mg Hydrox/Simethicone (Maalox Plus) 30 ml PO Q6HR PRN PRN Reason: Dyspepsia Bisacodyl (Dulcolax) 10 mg ID DAILY PRN PRN Reason: Constipation Calcium Carbonate (Tums) 1,000 mg PO Q4HR PRN PRN Reason: Dyspepsia Docusate Sodium (Colace) 100 mg PO BID PRN PRN Reason: Constipation Morphine Sulfate (Morphine) 2 mg IV Q4HR PRN PRN Reason: Pain, Moderate (4-6) Naloxone HCl (Narcan) 0.2 mg IV Q2MIN PRN PRN Reason: Opiate Reversal Ondansetron HCl (Zofran) 4 mg IV Q8HR PRN PRN Reason: Nausea And Vomiting Discontinued Medications Furosemide (Lasix) 60 mg IV NOW ONE Stop: 11/07/19 15:11 Last Admin: 11/07/19 15:57 Dose: 60 mg Documented by: MERON Furosemide (Lasix) 60 mg IV NOW ONE Stop: 11/07/19 17:30 Last Admin: 11/07/19 18:08 Dose: Not Given Documented by: MERON Ceftriaxone Sodium/Dextrose (Rocephin) 2 gm in 50 mls @ 100 mls/hr IV NOW ONE Stop: 11/07/19 17:55 Last Infusion: 11/07/19 18:18 Dose: 100 mls/hr Documented by: Admin: 11/07/19 17:41 Dose: 100 mls/hr Documented by: MERON Azithromycin 500 mg/ Dextrose 250 mls @ 250 mls/hr IV NOW ONE Stop: 11/07/19 17:26 Last Infusion: 11/07/19 18:30 Dose: 250 mls/hr Documented by: Admin: 11/07/19 18:30 Dose: 250 mls/hr Documented by: MERON Vital Signs Vital signs: Vital Signs - 8 hr 11/07/19 13:30 11/07/19 15:45 11/07/19 15:50 Temperature 97.6 F Pulse Rate 59 L 63 57 L Respiratory Rate 24 28 H 25 H Blood Pressure 146/63 H Blood Pressure [Left Arm] 165/71 H 165/71 H Pulse Oximetry 100 99 100 11/07/19 16:00 11/07/19 16:30 11/07/19 17:00 Temperature Pulse Rate 59 L 59 L 60 Respiratory Rate 23 24 25 H Blood Pressure Blood Pressure [Left Arm] 155/63 H 174/70 H 169/74 H Pulse Oximetry 100 100 100 11/07/19 17:30 Temperature Pulse Rate 65 Respiratory Rate 24 Blood Pressure Blood Pressure [Left Arm] 161/73 H Pulse Oximetry 99 MDM - SOB/Dyspnea Lab Data Attestation: I reviewed the patient's lab results. Result diagrams: 11/07/19 14:10 11/07/19 14:10 Labs: Lab Results 11/07/19 11/07/19 11/07/19 Range/Units 14:10 14:10 14:10 WBC 4.7 (4.5-11.0) X10^3/uL RBC 2.73 L (4.5-5.9) X10^6/uL Hgb 9.5 L (13.5-17.5) g/dL Hct 28.4 L (41-53) % MCV 104.1 H (80-100) fL MCH 35.0 H (26-34) PG MCHC 33.6 (30-36) % RDW 22.6 H (11.6-14.8) % Plt Count 104 L (150-400) X10^3/uL Neut % (Auto) 70.1 (50-75) % Lymph % (Auto) 16.9 L (25-40) % [place] % (Auto) 12.1 (3-14) % Eos % (Auto) 0.3 L (2-4) % Baso % (Auto) 0.6 (0-2) % Neut # (Auto) 3300 (1760-8427) /uL Lymph # (Auto) 800 L (0268-9226) /uL [place] # (Auto) 600 (0-900) /uL Eos # (Auto) 0 (0-450) /uL Baso # (Auto) 0 (0-100) /uL RBC Morphology Not Reportable Hypochromasia 1+ H Anisocytosis 2+ H Target Cells 1+ H PT 12.3 (10.1-12.7) SECONDS INR 1.1 (0.9-1.3) Sodium 140 (137-145) mmol/L Potassium 3.8 (3.4-5.1) mmol/L Chloride 98 (98-107) mmol/L Carbon Dioxide 32 (22-32) mmol/L BUN 28 H (9-20) mg/dL Creatinine 1.30 H (0.66-1.25) mg/dL Estimated GFR 52.6 L (>60) mL/min BUN/Creatinine Ratio 21.5 (6-22) Glucose 109 (80-110) mg/dL Calcium 9.5 (8.4-10.2) mg/dL Magnesium (1.6-2.3) mg/dL Total Bilirubin 1.1 (0.2-1.3) mg/dL AST 29 (17-59) IU/L ALT 13 (<50) IU/L Alkaline Phosphatase 240 H (38-126) U/L NT-Pro-B Natriuret Pep 6510 H (<450) pg/mL Total Protein 8.4 H (6.3-8.2) g/dL Albumin 3.9 (3.5-5.0) g/dL Globulin 4.5 H (1.7-4.1) g/dL Albumin/Globulin Ratio 0.9 L (1.0-2.8) 11/07/20 Range/Units 14:10 WBC (4.5-11.0) X10^3/uL RBC (4.5-5.9) X10^6/uL Hgb (13.5-17.5) g/dL Hct (41-53) % MCV (80-100) fL MCH (26-34) PG MCHC (30-36) % RDW (11.6-14.8) % Plt Count (150-400) X10^3/uL Neut % (Auto) (50-75) % Lymph % (Auto) (25-40) % [place] % (Auto) (3-14) % Eos % (Auto) (2-4) % Baso % (Auto) (0-2) % Neut # (Auto) (1530-4146) /uL Lymph # (Auto) (7983-6730) /uL [place] # (Auto) (0-900) /uL Eos # (Auto) (0-450) /uL Baso # (Auto) (0-100) /uL RBC Morphology Hypochromasia Anisocytosis Target Cells PT (10.1-12.7) SECONDS INR (0.9-1.3) Sodium (137-145) mmol/L Potassium (3.4-5.1) mmol/L Chloride (98-107) mmol/L Carbon Dioxide (22-32) mmol/L BUN (9-20) mg/dL Creatinine (0.66-1.25) mg/dL Estimated GFR (>60) mL/min BUN/Creatinine Ratio (6-22) Glucose (80-110) mg/dL Calcium (8.4-10.2) mg/dL Magnesium 2.0 (1.6-2.3) mg/dL Total Bilirubin (0.2-1.3) mg/dL AST (17-59) IU/L ALT (<50) IU/L Alkaline Phosphatase (38-126) U/L NT-Pro-B Natriuret Pep (<450) pg/mL Total Protein (6.3-8.2) g/dL Albumin (3.5-5.0) g/dL Globulin (1.7-4.1) g/dL Albumin/Globulin Ratio (1.0-2.8) Urine Dip Bedside Urine Glucose Negative Bedside Urine Bilirubin - Negative Bedside Urine Ketone - Negative Urine Specific [place] 1.015 Bedside Urine Occult Blood - Negative Bedside Urine pH 6.0 Bedside Urine Protein - Negative Bedside Urine Urobilinogen - Negative Bedside Urine Nitrite - Negative Bedside Urine Leukocytes - Negative Esterase ECG Data Attestation: I personally reviewed and interpreted this ECG as follows: Interpretation: The patient's EKG obtained on November 07 r revealed a ventricular rate of 98 normal sinus rhythm normal intervals normal access Q- waves in leads III AVF suggesting inferior wall MA of undetermined time. There are nonspecific ST segment changes. T-waves are flattened in V4 V5 V6 V3 AVF. T-waves are inverted in lead III and V1. The EKG otherwise is normal. Discharge Plan Departure Patient Disposition: Admitted As Inpatient Clinical Impression: Pulmonary edema Qualifiers: Chronicity: acute Qualified Code(s): J81.0 - Acute pulmonary edema Congestive heart failure Qualifiers: Heart failure type: unspecified Heart failure chronicity: acute Qualified Code(s): I50.9 - Heart failure, unspecified Pneumonia Qualifiers: Pneumonia type: due to unspecified organism Laterality: unspecified laterality Lung location: unspecified part of lung Qualified Code(s): J18.9 - Pneumonia, unspecified organism Discharge Date/Time: 11/07/19 18:19 Admit Date/Time: 11/07/19 17:41 Admit Provider: Bryce Nobles
[2019-11-07] MEDS: CEFTRIAXONE 2 GM/50 ML FROZ.PIGGY IV (17:41)
[2019-11-07] MEDS: AZITHROMYCIN 500 MG in DEXTROSE 5% IN WATER 250 ML IV (18:30)
--- NOTE | 2019-11-07 21:04 | PM.HP.1 ---
History of Present Illness History of Present Illness Date Patient Seen: 11/07/19 Time Patient Seen: 20:00 Chief complaint: ekg is abnormal,retaining fluid,not feeling well Narrative: Mr. Mehul Reeves is an 84-year-old male with history significant for atrial fibrillation, congestive heart failure, COPD, CHF, asbestosis, hypertension, hyperlipidemia and GI bleeding presents to the ER the direction of his home health provider for increasing shortness of breath. Reportedly the patient had an oxygen saturation at the office 94% on 2 liters/minute. He he states that he began having increasing shortness of breath over several days but yesterday he developed shortness of breath at rest and exertional. He has associated fatigue and weakness. He has cough that is scribe some is productive for a thick foamy sputum. He reports his breathing is further complicated by abdominal bloating and feels he has difficulty taking a deep breath. He has been feeling hot at home but has not documented a significant fever. Patient reports no other complaints of nasal congestion or sore throat, he has cough and shortness breath as above. He reports complaints of abdominal pain with ?gurgling? and cramping pain them lose around. He denies complaints of nausea vomiting and states he has been having normal bowel movements but none today. He has had less flatulence than usual. He denies urinary complaints. He does endorse weight gain stating typically he is approximately 183 lb and had gone up to 193 and over the last several days loss of appetite has gone back down to 190. Upon arrival to the ER the patient is afebrile with a temperature 97.6?, heart rate of 59, blood pressure 146/63, respiratory rate of 24 saturating 97% on room air. A chest x-ray is obtained finding cardiomyopathy with prominent pulmonary edema and small bilateral effusions further noting the possibly superimposed pneumonia. On abdominal imaging dense left lower lobe pneumonia is reported as well as diffuse small and large bowel gas pattern but not raising to the extent of distention. On 12 lead EKG he has atrial fibrillation with ventricular rate of 60 with an incomplete right bundle branch block without ST or T-wave changes. On laboratory analysis the patient has white blood cell count of 4.7, hemoglobin 9.5, hematocrit of 28.4, platelets of 104. On coagulation he has a PT of 12.3 with an INR of 1.1. On chemistries he has a sodium of 140 with a potassium of 3.8 and magnesium a 2.0. He has a BUN of 28 and creatinine 1.3. His nonfasting glucose is 109. He has bilirubin 1.1, AST of 29, ALT of 113, alkaline phosphatase of 240. His albumin is 3.9. He has a proBNP of 6510. The patient is admitted to the medicine service for heart failure with pulmonary edema and left lower lobe pneumonia. Patient History Medical History Afib (Acute) PAIGE (acute kidney injury) (Acute) CHF (congestive heart failure) (Acute) CKD (chronic kidney disease) (Acute) COPD (chronic obstructive pulmonary disease) (Acute) Hyperlipidemia (Acute) Hypertension (Acute) Hypoxia (Acute) Pulmonary asbestosis (Acute) Surgical History History of cataract surgery (Acute) Family & Social History Family History Mother CVA (cerebral vascular accident) Father PAD (peripheral artery disease) Social History: household members spouse Prior Living Arrangements House Safety & Behavioral: Feels Safe in Current Yes Environment Been Physically Hurt or No Threatened By a Person Suicidal Ideation Description None Suicide Plan Description No Plan Tobacco & Substance use: Smoking Status Never smoker alcohol intake current alcohol intake frequency 3 or more drinks per day Substance Use Type does not use Comment: Advanced directive: In direct discussion the patient the patient states his desire to be DO NOT RESUSCITATE. He designates his to be his surrogate decision maker. Meds Home Medications and Allergies Home Medications Medication Instructions Recorded Confirmed Type coenzyme Q10 [Co Q-10] 100 mg PO QPM #0 06/21/12 11/07/19 History cyanocobalamin (vitamin B-12) 100 mcg PO QPM #0 06/21/12 11/07/19 History [Vitamin B-12] allopurinol 300 mg PO QPM #0 11/23/12 11/07/19 History Glucosamine Sulfate (GLUCOSAMINE-) 750 mg PO QPM #0 11/26/12 11/07/19 History latanoprost 1 drp EYE-BOTH BEDTIME 09/07/19 11/07/19 History acetaminophen 975 mg PO Q8H PRN #30 tab 09/12/19 11/07/19 Rx docusate sodium [DOK] 100 mg PO BID PRN #30 cap 09/12/19 11/07/19 Rx melatonin 3 mg PO BEDTIME #30 tab 09/12/19 11/07/19 Rx pantoprazole 40 mg PO 0700,2100 #60 tab 09/12/19 11/07/19 Rx polyethylene glycol 3350 17 gm PO DAILY PRN #30 ea 09/12/19 11/07/19 Rx Iron + Vitamin C 1 tab PO BID 10/04/19 11/07/19 History ipratropium bromide 1 spray INTRANASAL DIRECTED 10/04/19 11/07/19 History potassium chloride 10 meq PO DAILY 10/04/19 11/07/19 History pravastatin 20 mg PO DAILY 10/04/19 11/07/19 History torsemide 40 mg PO DAILY 10/04/19 11/07/19 History furosemide 100 mg PO DAILY 11/04/19 11/07/19 History guaifenesin [Mucus Relief ER] 1,200 mg PO BID 11/07/19 11/07/19 History Allergies Allergy/AdvReac Type Severity Reaction Status Date / Time No Known Drug Allergies Allergy Verified 06/12/18 10:12 Review of Systems Review of Systems Narrative: All systems reviewed and found unremarkable under discussed in the HPI above. Exam Vital Signs (past 8 hours): - 11/07/19 13:30 11/07/19 15:45 11/07/19 15:50 Temperature 97.6 F Pulse Rate 59 L 63 57 L Respiratory Rate 24 28 H 25 H Blood Pressure 146/63 H Blood Pressure [Left Arm] 165/71 H 165/71 H Pulse Oximetry 100 99 100 11/07/19 16:00 11/07/19 16:30 11/07/19 17:00 Temperature Pulse Rate 59 L 59 L 60 Respiratory Rate 23 24 25 H Blood Pressure Blood Pressure [Left Arm] 155/63 H 174/70 H 169/74 H Pulse Oximetry 100 100 100 11/07/19 17:30 11/07/19 18:00 11/07/19 18:40 Temperature 98.3 F Pulse Rate 65 64 67 Respiratory Rate 24 25 H 20 Blood Pressure 193/78 H Blood Pressure [Left Arm] 161/73 H 170/76 H Pulse Oximetry 99 99 97 11/07/19 21:01 Temperature Pulse Rate Respiratory Rate Blood Pressure Blood Pressure [Left Arm] Pulse Oximetry 96 Oxygen Delivery Method Room Air Oxygen Flow Rate 2 Narrative Exam Narrative: GENERAL APPEARANCE: well developed, well nourished, alert and conversant conversant in no respiratory distress but mildly uncomfortable appearing. HEENT: Normocephalic, PERRLA, conjunctiva clear, EOMs intact without nystagmus, no sinus tenderness to percussion, no rhinorrhea, mucous membranes are moist and pink without lesions or exudate. NECK/THYROID: neck supple, no JVD, no carotid bruit, no thyromegaly, trachea midline. LYMPH NODES: no cervical or supraclavicular lymphadenopathy. SKIN: [place], warm and dry, no visible lesions, rashes, ulcerations or petechiae. HEART: regular rate and rhythm, S1-S2, 1/6 systolic murmur, no rubs or gallops, brisk capillary refill, 1+ edema bilateral lower extremities to the knee. LUNGS: Absent breath sounds left lower lobe, crackles mid left lung field, right basilar crackles, no central coarseness or wheezing, no cough present. CHEST: Nasal cannula oxygen, freely conversant, symmetrical movement, no accessory muscle use, low tidal volume. ABDOMEN: Soft, round, tympanic to percussion, no tenderness, no guarding or peritoneal signs, no organomegaly, no flank tenderness, active bowel tones. EXTREMITIES: Well healing wounds right lower leg without redness or swelling, venous stasis changes moves all extremities, strength is 5/5 and symmetrical. NEUROLOGIC: AAO x4, no focal neurologic deficits, sensation intact to light touch PSYCH: Good eye contact, linear thought process, cooperative, appropriate with stable behavior Objective Labs Result Diagrams: 11/07/19 14:10 11/07/19 14:10 Labs: Laboratory Results - last 24 hr 11/07/19 11/07/19 11/07/19 14:10 14:10 14:10 WBC 4.7 RBC 2.73 L Hgb 9.5 L Hct 28.4 L MCV 104.1 H MCH 35.0 H MCHC 33.6 RDW 22.6 H Plt Count 104 L Neut % (Auto) 70.1 Lymph % (Auto) 16.9 L [place]assen % (Auto) 12.1 Eos % (Auto) 0.3 L Baso % (Auto) 0.6 Neut # (Auto) 3300 Lymph # (Auto) 800 L [place]assen # (Auto) 600 Eos # (Auto) 0 Baso # (Auto) 0 RBC Morphology Not Reportable Hypochromasia 1+ H Anisocytosis 2+ H Target Cells 1+ H PT 12.3 INR 1.1 Sodium 140 Potassium 3.8 Chloride 98 Carbon Dioxide 32 BUN 28 H Creatinine 1.30 H Estimated GFR 52.6 L BUN/Creatinine Ratio 21.5 Glucose 109 Calcium 9.5 Magnesium Total Bilirubin 1.1 AST 29 ALT 13 Alkaline Phosphatase 240 H NT-Pro-B Natriuret Pep 6510 H Total Protein 8.4 H Albumin 3.9 Globulin 4.5 H Albumin/Globulin Ratio 0.9 L 11/07/19 14:10 WBC RBC Hgb Hct MCV MCH MCHC RDW Plt Count Neut % (Auto) Lymph % (Auto) [place]assen % (Auto) Eos % (Auto) Baso % (Auto) Neut # (Auto) Lymph # (Auto) [place]assen # (Auto) Eos # (Auto) Baso # (Auto) RBC Morphology Hypochromasia Anisocytosis Target Cells PT INR Sodium Potassium Chloride Carbon Dioxide BUN Creatinine Estimated GFR BUN/Creatinine Ratio Glucose Calcium Magnesium 2.0 Total Bilirubin AST ALT Alkaline Phosphatase NT-Pro-B Natriuret Pep Total Protein Albumin Globulin Albumin/Globulin Ratio Assessment & Plan Assessment & Plan narrative: This is an 84-year-old male patient who presents to the hospital sent by his PA with complaints of progressive dyspnea and complaints of abdominal bloating. The patient has history of congestive failure, chronic obstructive lung disease with asbestosis atrial fibrillation chronic kidney disease. Patient has persistent anemia and has been taken off anticoagulants radiate to GI bleeding. 1. Acute on chronic hypoxemic and hypercarbic respiratory failure, multifactorial, present on admission, active. -patient is on chronic home O2 at 2 to 2.5 liters/minute. Presents to the ER with respiratory rate of 20 4-28 saturating 97% on 2 L for a PF ratio of 342. -patient with has a history significant for COPD, pulmonary hypertension with right heart failure and cor pulmonale, asbestosis and restrictive lung disease. -patient presents with increasing shortness of breath with pulmonary edema on chest x-ray and has left lower lobe pneumonia. -will treat the underlying conditions as discussed below. 2. Community-acquired pneumonia, left lower lobe, present on admission, active. -chest x-ray identifies cardiomyopathy with prominent pulmonary edema with small effusions and notes cannot rule out superimposed pneumonia. -abdominal x-ray makes notation of dense pneumonia left lower lobe, intestinal gas pattern without blockage. -patient has been afebrile but does report intermittent fevers and chills, white count low end of normal at 4.7. -ordered azithromycin 500 mg IV daily for 3 days. -ordered ceftriaxone 2 g IV daily for 7 days. -respiratory therapy consult and treat. -albuterol nebulizer 2.5 mg every 2 hours as needed. -DuoNeb every 4 hours as needed. -incentive spirometry. -will obtain a respiratory panel and procalcitonin. 3. Acute on chronic heart failure, cor pulmonale, pulmonary edema, present on admission, active -patient reports progressive shortness of breath and weight gain noting increase in weight over the last 2 weeks from 183 to 193 and when not eating back down to 190. -patient describes cough producing frothy sputum without evidence of bleeding. -chest x-ray reveals pulmonary edema, patient received Lasix 60 mg x 2 in the emergency department with improvement in presentation. -will continue the patient's home regimen torsemide 40 mg of Lasix 100 mg daily. -continue patient's home regimen of BiPAP at night with RT to manage per protocol. -will assess patient's renal function in the setting of CKD prior to further augmentation of diuresis. -will monitor chemistries and renal function. -will continue routine home O2 at 2 L per minute 4. Hypertension, chronic, present on admission, active -blood pressure is acceptable on admission at 146/63 however is notably elevated upon arrival to the floor at 193/78. -the patient is no longer taking quinapril, discontinued by his sales and service specialist. -the patient continues to be diuresed with torsemide and Lasix. -will monitor blood pressures closely, as the patient has had previous episodes flash pulmonary edema on prior admission 5. Abdominal bloating, acute, present on admission, active. -patient complains of distended abdomen with abdominal pain on the right side than the left side consistent with gas cramps. Normal stooling. -patient reports abdominal distension decreases diaphragmatic excursion and impedes his breathing. -abdomen is to tachypneic to percussion, x-ray finds prominent bowel gas pattern in large and small intestine but not meeting criteria for distention. -patient is already taking Protonix twice daily -ordered simethicone 80 mg 3 times daily. 6. COPD, present on admission, stable -patient with progressive shortness of breath but denies complaints of wheezing. -breath sounds are diminished more so in the left lower lobe as noted above with pneumonia. -respiratory therapy to consult. -albuterol nebulizer every 2 hours as needed -DuoNeb every 6 hours as needed -incentive spirometry 7. 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 -patient uses chronic home O2 2 to 2.5 liters/minute. 8. Chronic atrial fibrillation, present on admission, stable -patient continues to be in atrial fibrillation with controlled rate, 12 lead EKG finds AFib with a ventricular rate of 60, incomplete right bundle branch block without signs of ischemia or infarct. -patient is no longer on anticoagulation due to GI bleeding. -the patient takes no rate control or rhythm control medication. 9. Macrocytic hypochromic anemia, chronic, present on admission, stable -patient previously has had GI bleeding and is no longer anticoagulated, Eliquis has been discontinued. -hemoglobin is 9.5 on admission and has been slowly improving since June where before history I bleeding he was 11.3 a baseline -he reports no hemoptysis, hematemesis, hematochezia, melena -patient remains anemic with a hemoglobin of 9.5 and hematocrit 28.4. -will monitor blood count. 10. Chronic kidney disease stage 3, present on admission, stable -creatinine on admission is 1.3 with a BUN of 28. This is below patient baseline of 1.4-1.6. -patient is currently on diuretics for congestive failure.. Patient received 60 mg x 2 while in the emergency department. -will continue torsemide 40 mg daily and Lasix 100 mg daily. -will monitor renal function and assess prior to further augmenting diuresis. -will avoid renal toxic agents and renally dose medications as indicated. VTE prophylaxis: SCDs and Lovenox Diet: Low-sodium, heart healthy. IV fluid: Saline lock The patient is admitted to the hospital for acute respiratory failure related to pulmonary edema and pneumonia with multiple comorbid conditions increasing his risk for complications and adverse events. Patient is admitted as an inpatient with expected length of stay to be greater than 2 midnights. Scores [facility] [place] coma scale eye opening: Spontaneous Richard coma scale verbal response: Orientated Richard coma scale motor response: Obey commands [place] coma scale total score: 15
[2019-11-07] MEDS: guaiFENesin ER 600 MG TAB 1200 MG PO (22:05)
[2019-11-07] MEDS: SIMETHICONE 80 MG TABLET PO (22:07)
[2019-11-07] MEDS: MELATONIN 3 MG TABLET PO (22:07)
[2019-11-07] MEDS: PANTOPRAZOLE 40 MG TABLET PO (22:12)
[2019-11-08] VITALS (13 sets, daily range): BP systolic 123–156; BP diastolic 60–68; PULSE 58–66; RESP 18–20; TEMP 36.5–36.9; O2SAT 97–100
[2019-11-08 01:06] LABS: Troponin I 0.026 ng/mL (0.01-0.034)
[2019-11-08 01:43] LABS: Adenovirus Not Detected (Not Detect); Bordetella pertussis Not Detected (Not Detect); Chlamydophila pneumoniae Not Detected (Not Detect); Coronavirus 229E Not Detected (Not Detect); Coronavirus HKU1 Not Detected (Not Detect); Coronavirus NL 63 Not Detected (Not Detect); Coronavirus OC43 Not Detected (Not Detect); Human Metapneumovirus Not Detected (Not Detect); Human Rhinovirus/Enterovirus Not Detected (Not Detect); Influenza A Not Detected (Not Detect); Influenza B Not Detected (Not Detect); Mycoplasma pneumoniae Not Detected (Not Detect); Parainfluenza Virus 1 Not Detected (Not Detect); Parainfluenza Virus 2 Not Detected (Not Detect); Parainfluenza Virus 3 Not Detected (Not Detect); Parainfluenza Virus 4 Not Detected (Not Detect); Respiratory Syncytial Virus Not Detected (Not Detect)
[2019-11-08 05:53] LABS: Blood Urea Nitrogen 24 mg/dL (9-20); Calcium 9.1 mg/dL (8.4-10.2); Carbon Dioxide 37 mmol/L (22-32); Chloride 95 mmol/L (98-107); Estimated Glomerular Filt Rate 57.7 mL/min (>60); Glucose 98 mg/dL (80-110); HEMOLYSIS < 15 (0-50); Potassium 3.3 mmol/L (3.4-5.1); Sodium 136 mmol/L (137-145)
[2019-11-08 05:54] LABS: Basophils Absolute Auto 0 /uL (0-100); Eosinophils Absolute Auto 100 /uL (0-450); Eosinophils Percent Auto 1.9 % (2-4); Hemoglobin 9.3 g/dL (13.5-17.5); Lymphocytes Absolute Auto 600 /uL (1100-4500); Lymphocytes Percent Auto 16.3 % (25-40); Mean Corpuscular HGB Conc 33.1 % (30-36); Mean Corpuscular Hemoglobin 34.4 PG (26-34); Mean Corpuscular Volume 103.7 fL (80-100); Monocytes Absolute Auto 600 /uL (0-900); Monocytes Percent Auto 15.2 % (3-14); Neutrophils Absolute Auto 2400 /uL (1500-7000); Neutrophils Percent Auto 65.6 % (50-75); Platelet Count 100 X10^3/uL (150-400); Red Blood Cell Count 2.69 X10^6/uL (4.5-5.9); White Blood Cell Count 3.7 X10^3/uL (4.5-11.0)
[2019-11-08 06:03] LABS: Add Manual Diff / Slide Review SLIDE REVIEW
[2019-11-08 06:17] LABS: Procalcitonin 0.05 ng/mL (<0.5)
[2019-11-08] MEDS: PANTOPRAZOLE 40 MG TABLET PO ×2 (06:36→21:21)
[2019-11-08 06:59] LABS: Anisocytosis 2+
[2019-11-08 07:00] LABS: Macrocytosis 1+
[2019-11-08] MEDS: ENOXAPARIN 40 MG/0.4 ML SYRINGE SUBCUT (09:25)
[2019-11-08] MEDS: POTASSIUM CHLORIDE 20 MEQ TAB 40 MEQ PO (09:25)
[2019-11-08] MEDS: FUROSEMIDE 40 MG TABLET 100 MG PO (09:26)
[2019-11-08] MEDS: TORSEMIDE 10 MG TABLET 40 MG PO (09:27)
[2019-11-08] MEDS: PRAVASTATIN 20 MG TABLET PO (09:27)
[2019-11-08] MEDS: guaiFENesin ER 600 MG TAB 1200 MG PO ×2 (09:27→21:21)
--- NOTE | 2019-11-08 10:47 | PM.PN.1 ---
Subjective Subjective Date Patient Seen: 11/08/19 Interval history: Mr. Mehul Reeves is an 84-year-old male with history significant for atrial fibrillation, congestive heart failure, COPD, cor pulmonale, asbestosis, hypertension, hyperlipidemia and GI bleeding presents to the ER the direction of his home health provider for increasing shortness of breath. He is being treated for pneumonia and heart failure exacerbation. Patient states he feels improvement in breathing since treatments initiated overnight. Exam Vital Signs (past 8 hours): - 11/08/19 04:43 11/08/19 05:00 11/08/19 08:00 Temperature 97.8 F 98.0 F Pulse Rate 64 58 L Respiratory Rate 18 20 Blood Pressure 140/65 124/60 Pulse Oximetry 97 99 98 Oxygen Delivery Method CPAP Oxygen Flow Rate 1 Narrative Exam Narrative: GENERAL: Patient is alert and appears comfortable lying in bed with BiPAP HEENT: Head normocephalic, atraumatic. CHEST: Diminished in bases but otherwise clear to auscultation, no wheeze CARDIAC: Normal S1 and S2, irregularly irregular rhythm, controlled rate. ABDOMEN: soft, nontender, no abdominal mass EXTREMITIES: 1+ bilateral pretibial edema. NEUROLOGICAL: Conversationally oriented, no focal findings SKIN: Warm, dry, no petechiae, no rash Objective Labs Result Diagrams: 11/08/19 05:19 11/08/19 05:19 Labs: Laboratory Results - last 24 hr 11/07/19 11/07/19 11/07/19 14:10 14:10 14:10 WBC 4.7 RBC 2.73 L Hgb 9.5 L Hct 28.4 L MCV 104.1 H MCH 35.0 H MCHC 33.6 RDW 22.6 H Plt Count 104 L Neut % (Auto) 70.1 Lymph % (Auto) 16.9 L [place] % (Auto) 12.1 Eos % (Auto) 0.3 L Baso % (Auto) 0.6 Neut # (Auto) 3300 Lymph # (Auto) 800 L [place] # (Auto) 600 Eos # (Auto) 0 Baso # (Auto) 0 RBC Morphology Not Reportable Hypochromasia 1+ H Anisocytosis 2+ H Macrocytosis Target Cells 1+ H PT 12.3 INR 1.1 Sodium 140 Potassium 3.8 Chloride 98 Carbon Dioxide 32 BUN 28 H Creatinine 1.30 H Estimated GFR 52.6 L BUN/Creatinine Ratio 21.5 Glucose 109 Calcium 9.5 Magnesium Total Bilirubin 1.1 AST 29 ALT 13 Alkaline Phosphatase 240 H Troponin I NT-Pro-B Natriuret Pep 6510 H Total Protein 8.4 H Albumin 3.9 Globulin 4.5 H Albumin/Globulin Ratio 0.9 L Procalcitonin Chlamy pneumoniae PCR Adenovirus (PCR) B.parapertussis DNA PCR Coronavirus OC43 (PCR) Coronavirus HKU1 (PCR) Coronavirus 229E (PCR) Coronavirus NL63 (PCR) Human Metapneumovir PCR Influenza Type A (PCR) Influenza Type B (PCR) M. pneumoniae (PCR) Parainfluenza 1 (PCR) Parainfluenza 2 (PCR) Parainfluenza 3 (PCR) Parainfluenza 4 (PCR) RSV (PCR) Entero/Rhino (PCR) 11/07/19 11/07/19 11/08/19 14:10 14:10 00:20 WBC RBC Hgb Hct MCV MCH MCHC RDW Plt Count Neut % (Auto) Lymph % (Auto) [place] % (Auto) Eos % (Auto) Baso % (Auto) Neut # (Auto) Lymph # (Auto) [place] # (Auto) Eos # (Auto) Baso # (Auto) RBC Morphology Hypochromasia Anisocytosis Macrocytosis Target Cells PT INR Sodium Potassium Chloride Carbon Dioxide BUN Creatinine Estimated GFR BUN/Creatinine Ratio Glucose Calcium Magnesium 2.0 Total Bilirubin AST ALT Alkaline Phosphatase Troponin I 0.026 NT-Pro-B Natriuret Pep Total Protein Albumin Globulin Albumin/Globulin Ratio Procalcitonin Chlamy pneumoniae PCR Not detected Adenovirus (PCR) Not detected B.parapertussis DNA PCR Not detected Coronavirus OC43 (PCR) Not detected Coronavirus HKU1 (PCR) Not detected Coronavirus 229E (PCR) Not detected Coronavirus NL63 (PCR) Not detected Human Metapneumovir PCR Not detected Influenza Type A (PCR) Not detected Influenza Type B (PCR) Not detected M. pneumoniae (PCR) Not detected Parainfluenza 1 (PCR) Not detected Parainfluenza 2 (PCR) Not detected Parainfluenza 3 (PCR) Not detected Parainfluenza 4 (PCR) Not detected RSV (PCR) Not detected Entero/Rhino (PCR) Not detected 11/08/19 11/08/19 11/08/19 05:19 05:19 05:19 WBC 3.7 L RBC 2.69 L Hgb 9.3 L Hct 28.0 L MCV 103.7 H MCH 34.4 H MCHC 33.1 RDW 22.0 H Plt Count 100 L Neut % (Auto) 65.6 Lymph % (Auto) 16.3 L [place] % (Auto) 15.2 H Eos % (Auto) 1.9 L Baso % (Auto) 1.0 Neut # (Auto) 2400 Lymph # (Auto) 600 L [place] # (Auto) 600 Eos # (Auto) 100 Baso # (Auto) 0 RBC Morphology See below Hypochromasia Anisocytosis 2+ H Macrocytosis 1+ H Target Cells PT INR Sodium 136 L Potassium 3.3 L Chloride 95 L Carbon Dioxide 37 H BUN 24 H Creatinine 1.20 Estimated GFR 57.7 L BUN/Creatinine Ratio 20.0 Glucose 98 Calcium 9.1 Magnesium Total Bilirubin AST ALT Alkaline Phosphatase Troponin I NT-Pro-B Natriuret Pep Total Protein Albumin Globulin Albumin/Globulin Ratio Procalcitonin 0.05 Chlamy pneumoniae PCR Adenovirus (PCR) B.parapertussis DNA PCR Coronavirus OC43 (PCR) Coronavirus HKU1 (PCR) Coronavirus 229E (PCR) Coronavirus NL63 (PCR) Human Metapneumovir PCR Influenza Type A (PCR) Influenza Type B (PCR) M. pneumoniae (PCR) Parainfluenza 1 (PCR) Parainfluenza 2 (PCR) Parainfluenza 3 (PCR) Parainfluenza 4 (PCR) RSV (PCR) Entero/Rhino (PCR) Assessment & Plan Assessment & Plan narrative: Mr. Mehul Reeves is an 84-year-old male with history significant for atrial fibrillation, congestive heart failure, COPD, cor pulmonale, asbestosis, hypertension, hyperlipidemia and GI bleeding presents to the ER the direction of his home health provider for increasing shortness of breath. He is being treated for pneumonia and heart failure exacerbation. 1. Community-acquired pneumonia, left lower lobe, present on admission, active. -patient with acute onset of cough, weakness and subjective fever with temp below 100 a couple days prior to admission, in-hospital he has been afebrile with normal to slightly low WBC with normal procalcitonin 0.05 -chest x-ray difficult to interpret due to underlying asbestosis with appearance of chronic bilateral airspace disease, but there appears to be new consolidation in the left lower lobe, and small bilateral pleural effusion -decided to treat for pneumonia in light of his severe underlying lung disease and acute onset of symptoms and new x-ray appearance -respiratory PCR panel negative -ordered azithromycin 500 mg IV daily for 3 days. -ordered ceftriaxone 2 g IV daily for 7 days. -respiratory therapy consult and treat. -incentive spirometry. 2. Acute on chronic heart failure, cor pulmonale, present on admission, active -primarily cor pulmonale, echo 09/08/2019 LVEF 55-60%, appearance of ?pulmonary edema? on x-ray is chronic and likely due to intrinsic lung disease secondary to asbestosis -patient reports progressive shortness of breath and weight gain noting increase in weight over the last 2 weeks from 183 to 193 and when not eating back down to 190. -patient received Lasix 60 mg x 2 in the emergency department with 2300 cc diuresis and improvement in presentation. -continue patient's home regimen torsemide 40 mg of Lasix 100 mg daily. He does not need additional IV diuretic at this time. -continue patient's home regimen of BiPAP at night with RT to manage per protocol. -low K secondary to diuresis, received additional oral potassium replacement -recheck BMP in a.m. 3. Chronic hypoxic respiratory failure -acute hypoxia ruled out upon review of vitals documentation -continue O2 2 L nasal cannula 4. Hypertension, chronic, present on admission, active -blood pressure is acceptable on admission at 146/63 however is notably elevated upon arrival to the floor at 193/78. 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 -the patient continues to be diuresed with torsemide and Lasix. -will monitor blood pressures closely, as the patient has had previous episodes flash pulmonary edema on prior admission 5. Abdominal bloating, acute, present on admission, active. -improving symptoms -patient complains of distended abdomen with abdominal pain on the right side than the left side consistent with gas cramps. Normal stooling. -x-ray finds prominent bowel gas pattern in large and small intestine but not meeting criteria for distention. -patient is already taking Protonix twice daily -ordered simethicone 80 mg 3 times daily. 6. COPD, present on admission, stable -patient with progressive shortness of breath but denies complaints of wheezing. -breath sounds are diminished more so in the left lower lobe as noted above with pneumonia. -respiratory therapy to consult. -albuterol nebulizer every 2 hours as needed -DuoNeb every 6 hours as needed -incentive spirometry 7. 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 -patient uses chronic home O2 2 to 2.5 liters/minute. 8. Chronic atrial fibrillation, present on admission, stable -patient continues to be in atrial fibrillation with controlled rate, 12 lead EKG finds AFib with a ventricular rate of 60, incomplete right bundle branch block without signs of ischemia or infarct. -patient is no longer on anticoagulation due to GI bleeding. -the patient takes no rate control or rhythm control medication. 9. Macrocytic hypochromic anemia, chronic, present on admission, stable -patient previously has had GI bleeding and is no longer anticoagulated, Eliquis has been discontinued. -hemoglobin is 9.5 on admission and has been slowly improving since June where before history I bleeding he was 11.3 a baseline -he reports no hemoptysis, hematemesis, hematochezia, melena -will monitor blood count. 10. Chronic kidney disease stage 3, present on admission, stable -creatinine on admission is 1.3 with a BUN of 28. This is below patient baseline of 1.4-1.6. -monitor renal function -avoid renal toxic agents and renally dose medications as indicated. VTE prophylaxis: SCDs and Lovenox Continue inpatient management of pneumonia.
--- NOTE | 2019-11-08 13:02 | PC.NURSE ---
Day Shift Note Alert and oriented x3. SpO2 98% on 2L NC per home oxygen use. Denies pain. Fine crackles to bases. Shortness of breath with exertion. Declines to get up to chair multiple times this shift, is changing position in bed independently, educated on importance of changing positions frequently. Call light within reach, using appropriately to make needs known. at bedside.
--- NOTE | 2019-11-08 15:52 | CM.DANOTE ---
DCP Assessment: EMR Reviewed: Patient is a 84 yr old male who was admitted to for Respiratory Failure due to Pulmonary edema and pneumonia. Patient has a HX of CHF and COPD. CM/RN met with patient at the bedside and explained CM/RN role. Patients , Doreen was present during meeting and patient was alert and oriented x3. Patient Currently lives in a single level home in [place] with his and is I with all ADLs and drives at [place]. Patient currently receives HH services from [facility] for CHF and COPD. Patient is currently home bound due to his need for oxygen. Patient stated he has been trying to get a mobile oxygen unit through [facility] in [facility] but is struggling with getting it covered with his insurance. CM/RN called [facility] and left a message letting them know that the patient was here at [facility]. Progress notes, and D/C summary will need to go to [facility] when he is ready for D/C. I: Medicare and [employer] Plan: D/C home with Doreen with [facility] when medically stable. CM department will follow up with [facility] and make sure they are good for continuing care at D/C. PT evaluation pending. Mandie Gama RN Discharge Planning/Care Management CM Discharge Assessment Start: 11/08/19 15:49 Freq: Status: Active Protocol: Document 11/08/19 15:49 HS (Rec: 11/08/19 15:52 HS [id number]) Discharge Planning Assessment Assigned Senior System Operator Mandie Gama RN DPOA/Assigned Designee Name Doreen Reeves () Contact Information [phone] Advance Directives? Yes: POLST Advance Directives on File Yes History Provided By Patient,Significant Other, Medical Record Has Patient been admitted in last 30 No days? Comment Was last admitted 09/12/2019 for CHF Prior Living Arrangements House Household Members spouse Type of transporation used prior to Drives own vehicle admit Independent with ADL's Yes Is patient alert and oriented? Yes Community Services used prior to Oxygen Therapy,Home Health admission: Nurse Comment Patient prior to admission worked with [facility]. DME Already Rented / Owned Elevated Toilet Seat,FWW / Walker Patient/Family Preference Home with Home Health Discharge Plan Home with Home Health Transportation Arrangement Spouse bedside and can provide transport if pt safe for home Additional Comment Waiting for PT eval, Patient already has [facility] established Whiteboard Updated in Patient Room with Yes name and ext. # of Senior System Operator Review Status In Process Next Review Type Continued Stay Review
[2019-11-08] MEDS: allopurinoL 300 MG TABLET PO (16:37)
[2019-11-08] MEDS: AZITHROMYCIN 500 MG in DEXTROSE 5% IN WATER 250 ML IV (16:38)
[2019-11-08] MEDS: CEFTRIAXONE 2 GM/50 ML FROZ.PIGGY IV (18:00)
[2019-11-08] MEDS: LATANOPROST 0.005% OPHTH 2.5 ML 1 DROPS EYE-BOTH (21:20)
[2019-11-08] MEDS: MELATONIN 3 MG TABLET PO (21:21)
--- NOTE | 2019-11-09 00:44 | PC.NURSE ---
Student Services Rep Note: 0030: Awake, resting in bed. Remains on CPAP with 2L O2 bleed-in. Vital signs stable. IV in place in rt AC. Remains on telemetry. Denies chest pain or pressure.
[2019-11-09 01:15] VITALS: BP 129/64; PULSE 63; RESP 18; TEMP 36.5; O2SAT 99
[2019-11-09 04:00] VITALS: BP 126/60; PULSE 58; RESP 18; TEMP 36.4; O2SAT 99
[2019-11-09 04:52] LABS: Add Manual Diff / Slide Review NO; Basophils Absolute Auto 0 /uL (0-100); Basophils Percent Auto 1.2 % (0-2); Eosinophils Absolute Auto 100 /uL (0-450); Hematocrit 27.3 % (41-53); Lymphocytes Absolute Auto 1000 /uL (1100-4500); Lymphocytes Percent Auto 27.6 % (25-40); Mean Corpuscular Hemoglobin 34.4 PG (26-34); Mean Corpuscular Volume 104.1 fL (80-100); Monocytes Absolute Auto 500 /uL (0-900); Monocytes Percent Auto 13.9 % (3-14); Neutrophils Absolute Auto 2100 /uL (1500-7000); Neutrophils Percent Auto 55.3 % (50-75); Platelet Count 102 X10^3/uL (150-400); Red Blood Cell Count 2.62 X10^6/uL (4.5-5.9); Red Cell Distribution Width 22.1 % (11.6-14.8); White Blood Cell Count 3.8 X10^3/uL (4.5-11.0)
[2019-11-09 05:02] LABS: BUN Creatinine Ratio 19.2 (6-22); Blood Urea Nitrogen 25 mg/dL (9-20); Calcium 8.9 mg/dL (8.4-10.2); Carbon Dioxide 39 mmol/L (22-32); Chloride 92 mmol/L (98-107); Estimated Glomerular Filt Rate 52.6 mL/min (>60); Glucose 101 mg/dL (80-110); HEMOLYSIS < 15 (0-50); Potassium 3.8 mmol/L (3.4-5.1); Sodium 135 mmol/L (137-145)
[2019-11-09] MEDS: PANTOPRAZOLE 40 MG TABLET PO (06:36)
[2019-11-09 06:57] LABS: Anisocytosis 3+; Macrocytosis 1+
[2019-11-09 08:00] VITALS: BP 128/60; PULSE 63; RESP 22; TEMP 36.2; O2SAT 98
[2019-11-09] MEDS: TORSEMIDE 10 MG TABLET 40 MG PO (09:03)
[2019-11-09] MEDS: ENOXAPARIN 40 MG/0.4 ML SYRINGE SUBCUT (09:06)
[2019-11-09] MEDS: guaiFENesin ER 600 MG TAB 1200 MG PO (09:07)
[2019-11-09] MEDS: POTASSIUM CHLORIDE 20 MEQ TAB PO (09:07)
[2019-11-09] MEDS: FUROSEMIDE 40 MG TABLET 100 MG PO (09:07)
[2019-11-09] MEDS: PRAVASTATIN 20 MG TABLET PO (09:08)
[2019-11-09 11:00] VITALS: BP 132/62; PULSE 60; RESP 22; TEMP 36.4; O2SAT 100
--- NOTE | 2019-11-09 11:47 | CM.DPC ---
Addendum entered by Tracy Romero R.N. 11/09/19 13:03: Discharge summary is completed. Went ahead and faxed resumption orders, DC summary, and DC home instructions, to [facility]. Addendum entered by Tracy Romero R.N. 11/09/19 11:59: It is noted that patient is being discharged home today. Confirmed this with ICU nurse, Cheryl. Called Brianne back from [facility], and gave her updated. She will need resumption orders. Will send her orders and discharge summary when it is complete. IMM was signed already yesterday. Original Note: DCP Cont: Called [facility] to ensure that they are aware that patient is in the hospital. Spoke to Brianne at [facility]. Let her know that patient was admitted on 11-07. JAIME Lockwoodcompany manager had left Candia a message yesterday that patient was admitted. Asked Brianne what services that patient is receiving with [facility]. He is getting nursing, P.T, O.T, and bath aide. Asked her when [facility] services started, which was on 09-18. She mentioned that if patient is discharged after -10, will need new orders for start of care, otherwise, if before that, will be resumption. P: DCP will see how patient does here in hospital, since he is currently medically unstable, to ensure that home will be the plan. Other alternative is residential, if needed, patient does have Medicare. Tracy Romero RN/Hot Air Furnace Installer And Repairer
[2019-11-09 11:54] VITALS: O2SAT 97
--- NOTE | 2019-11-09 12:28 | P.DS_ITS ---
History of Present Illness History of Present Illness Chief complaint: ekg is abnormal,retaining fluid,not feeling well Narrative: Mr. Mehul Reeves is an 84-year-old male with history significant for atrial fibrillation, congestive heart failure, COPD, CHF, asbestosis, hypertension, hyperlipidemia and GI bleeding presents to the ER the direction of his home health provider for increasing shortness of breath. Reportedly the patient had an oxygen saturation at the office 94% on 2 liters/minute. He he states that he began having increasing shortness of breath over several days but yesterday he developed shortness of breath at rest and exertional. He has associated fatigue and weakness. He has cough that is scribe some is productive for a thick foamy sputum. He reports his breathing is further complicated by abdominal bloating and feels he has difficulty taking a deep breath. He has been feeling hot at home but has not documented a significant fever. Patient reports no other complaints of nasal congestion or sore throat, he has cough and shortness breath as above. He reports complaints of abdominal pain with ?gurgling? and cramping pain them lose around. He denies complaints of nausea vomiting and states he has been having normal bowel movements but none today. He has had less flatulence than usual. He denies urinary complaints. He does endorse weight gain stating typically he is approximately 183 lb and had gone up to 193 and over the last several days loss of appetite has gone back down to 190. Upon arrival to the ER the patient is afebrile with a temperature 97.6?, heart rate of 59, blood pressure 146/63, respiratory rate of 24 saturating 97% on room air. A chest x-ray is obtained finding cardiomyopathy with prominent pulmonary edema and small bilateral effusions further noting the possibly superimposed pneumonia. On abdominal imaging dense left lower lobe pneumonia is reported as well as diffuse small and large bowel gas pattern but not raising to the extent of distention. On 12 lead EKG he has atrial fibrillation with ventricular rate of 60 with an incomplete right bundle branch block without ST or T-wave changes. On laboratory analysis the patient has white blood cell count of 4.7, hemoglobin 9.5, hematocrit of 28.4, platelets of 104. On coagulation he has a PT of 12.3 with an INR of 1.1. On chemistries he has a sodium of 140 with a potassium of 3.8 and magnesium a 2.0. He has a BUN of 28 and creatinine 1.3. His nonfasting glucose is 109. He has bilirubin 1.1, AST of 29, ALT of 113, alkaline phosphatase of 240. His albumin is 3.9. He has a proBNP of 6510. The patient is admitted to the medicine service for heart failure with pulmonary e fernando and left lower lobe pneumonia. Discharge Providers Provider Date of admission: 11/07/19 17:41 Discharge Date: 11/09/19 Primary care physician: Paramjit Timmons MD Consults: 11/07/19 19:59 Consult to Discharge Planning Routine Comment: 11/09/19 12:03 Consult to Home Health Routine Comment: Reason For Exam: Resume home health nursing, P.T, O.T, bath aide Discharge provider: Bryce Nobles MD Summary Hospital Course Discharge Diagnosis: 1. Bacterial pneumonia, left lower lobe 2. Cor pulmonale with acute exacerbation 3. Chronic hypoxic respiratory failure 4. COPD 5. Asbestosis with restrictive lung disease 6. Cronic anemia 7. Chronic atrial fibrillation 8. History of GI bleed on anticoagulation for AFib 9. Chronic kidney disease stage 3 Hospital Course: Mr. Mehul Reeves is an 84-year-old male with history significant for atrial fibrillation, congestive heart failure, COPD, cor pulmonale, asbestosis, hypertension, hyperlipidemia and GI bleeding presents to the ER the direction of his home health provider for increasing shortness of breath. He was treated primarily for pneumonia with finding of new consolidation in the left lower lobe. He received Zithromax and Rocephin IV. In addition he received diuresis for increased edema in his legs associated with his cor pulmonale. He got Lasix 120 mg IV and was put back on his routine diu retic regimen. Patient's clinical condition has much improved to where he is feeling stronger and able to return home. There were no positive cultures. He will complete course of antibiotic therapy with Zithromax 500 mg dose tonight then cefuroxime 500 mg b.i.d. x1 week. Status at Discharge Cognitive/behavioral status at discharge: oriented Functional status at discharge: independent ambulation Overall status at discharge: patient is progressing back to baseline Time Spent with Patient Time spent: Greater than 30 minutes Exam Vital Signs (past 8 hours): - 11/09/19 08:00 11/09/19 11:00 11/09/19 11:54 Temperature 97.2 F L 97.6 F Pulse Rate 63 60 Respiratory Rate 22 22 Blood Pressure 128/60 132/62 Pulse Oximetry 98 100 97 Oxygen Delivery Method Nasal Cannula Oxygen Flow Rate 2 Objective Labs Result Diagrams: 11/09/19 04:40 11/09/19 04:40 Labs: Laboratory Results - last 24 hr 11/09/19 11/09/19 04:40 04:40 WBC 3.8 L RBC 2.62 L Hgb 9.0 L Hct 27.3 L MCV 104.1 H MCH 34.4 H MCHC 33.0 RDW 22.1 H Plt Count 102 L Neut % (Auto) 55.3 Lymph % (Auto) 27.6 [place] % (Auto) 13.9 Eos % (Auto) 2.0 Baso % (Auto) 1.2 Neut # (Auto) 2100 Lymph # (Auto) 1000 L [place] # (Auto) 500 Eos # (Auto) 100 Baso # (Auto) 0 RBC Morphology See below Anisocytosis 3+ H Macrocytosis 1+ H Sodium 135 L Potassium 3.8 Chloride 92 L Carbon Dioxide 39 H BUN 25 H Creatinine 1.30 H Estimated GFR 52.6 L BUN/Creatinine Ratio 19.2 Glucose 101 Calcium 8.9 Discharge Plan Discharge Plan Patient Disposition: Home Discharge orders & Medications Prescriptions: New azithromycin 500 mg tablet 500 mg PO DAILY 1 Days Qty: 1 RF: 0 cefuroxime axetil 500 mg tablet 500 mg PO BID Qty: 14 RF: 0 Continued cyanocobalamin (vitamin B-12) [Vitamin B-12] 100 mcg Tablet 100 mcg PO QPM Qty: 0 RF: 0 coenzyme Q10 [Co Q-10] 100 mg Capsule 100 mg PO QPM Qty: 0 RF: 0 allopurinol 300 MG tablet 300 mg PO QPM Qty: 0 RF: 0 Glucosamine Sulfate (GLUCOSAMINE-) 750 mg PO QPM Qty: 0 RF: 0 latanoprost 0.005 % drops 1 drp EYE-BOTH BEDTIME RF: 0 acetaminophen 325 mg Tablet 975 mg PO Q8H PRN (Reason: Pain, Mild (1-3)) Qty: 30 RF: 0 melatonin 3 mg Tablet 3 mg PO BEDTIME Qty: 30 RF: 0 pantoprazole 40 mg Tablet,Delayed Release (Dr/Ec) 40 mg PO 0700,2100 Qty: 60 RF: 0 docusate sodium [DOK] 100 mg Capsule 100 mg PO BID PRN (Reason: Constipation) Qty: 30 RF: 0 polyethylene glycol 3350 17 gram Powder In Packet 17 gm PO DAILY PRN (Reason: Constipation) Qty: 30 RF: 0 torsemide 20 mg tablet 40 mg PO DAILY RF: 0 potassium chloride 20 mEq tablet,ER particles/crystals 10 meq PO DAILY RF: 0 pravastatin 20 mg tablet 20 mg PO DAILY RF: 0 ipratropium bromide 42 mcg (0.06 %) spray,non-aerosol 1 spray INTRANASAL DIRECTED RF: 0 Iron + Vitamin C 325 mg tablet 1 tab PO BID RF: 0 furosemide 40 mg tablet 100 mg PO DAILY RF: 0 guaifenesin [Mucus Relief ER] 600 mg tablet extended release 12hr 1,200 mg PO BID RF: 0 Follow up/Referrals: Paramjit Timmons MD [Primary Care Provider] - Discharge Health Status Multidrug resistant organism: No MDRO Diet/Activity/Treatments Diet: Diet as Tolerated Visit Report/Discharge Packet Instructions: DI for Pneumonia -- Adult Discharge Data Primary Care Provider: Paramjit Timmons
== END 2019-11-09 13:11 | disposition home health service (06) | DRG 194 ==
LOC: ED 17:40 → ICU 11-08 07:03 → AC 11-08 13:44 → ICU 11-08 13:44
PROVIDERS: Nurse Practitioner Adult Health; Admitting Provider Internal Medicine; Emergency Provider Emergency Medicine; Family Provider Internal Medicine; PCP Internal Medicine; Visit Provider Internal Medicine
DX: J15.9 Unspecified bacterial pneumonia (principal); J96.12 Chronic respiratory failure with hypercapnia; J44.0 Chronic obstructive pulmonary disease with (acute) lower respiratory infection; I48.20 Chronic atrial fibrillation, unspecified; I13.0 Hypertensive heart and chronic kidney disease with heart failure and stage 1 through stage 4 chronic kidney disease, or unspecified chronic kidney disease; I50.810 Right heart failure, unspecified; I27.81 Cor pulmonale (chronic); Z99.81 Dependence on supplemental oxygen; N18.3 Chronic kidney disease, stage 3 (moderate); E78.5 Hyperlipidemia, unspecified; R14.0 Abdominal distension (gaseous); D50.8 Other iron deficiency anemias; J68.8 Other respiratory conditions due to chemicals, gases, fumes and vapors; T57.8X1D Toxic effect of other specified inorganic substances, accidental (unintentional), subsequent encounter; Z66 Do not resuscitate
CPT/HCPCS: 36415; 36592; 71046; 74021; 80048; 80053; 81003; 83735; 83880; 84145; 84484; 85025; 85610; 87070; 87205; 87633; 93005; 94660; 94762; 96365; 96375; 99283; 99285; J0696; J1650; J1940